=== PATIENT | female | born 1985 | race Caucasian/White ===

== ENCOUNTER 2020-09-13 23:16 | Emergency (ER) | payer OTHER, SELFPAY ==
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
[2020-09-13 23:49] VITALS: BP 111/84; PULSE 77; RESP 12; TEMP 37.2; O2SAT 100
[2020-09-14] MEDS: CYCLOBENZAPRINE HCL 10 MG TABLET PO
[2020-09-14] MEDS: KETOROLAC (*BKC) 60 MG/2 ML VIAL IM
--- NOTE | 2020-09-14 00:02 | PC.NURSE ---
Pt returned from radiology.
--- NOTE | 2020-09-14 00:31 | PC.NURSE ---
Pt states pain has improved and is now rated 7/10 at this time. Pt remains alert and oriented x4 and in no obvious distress with stable vitals. EDMD to bedside to updated pt on poc and all questions and concerns addressed.
[2020-09-14 00:32] VITALS: BP 100/71; PULSE 72; RESP 13; TEMP 37.2; O2SAT 98
[2020-09-14 00:36] VITALS: BP 100/71; PULSE 72; RESP 13; TEMP 37.2; O2SAT 98
== END 2020-09-14 00:38 | disposition home or self-care (01) ==
PROVIDERS: Emergency Provider Emergency Medicine
DX: S29.012A Strain of muscle and tendon of back wall of thorax, initial encounter (principal); V89.2XXA Person injured in unspecified motor-vehicle accident, traffic, initial encounter
CPT/HCPCS: 72072; 96372; 99283; A9270; J1885

== ENCOUNTER 2020-11-05 17:03 | Emergency (ER) | payer OTHER, SELFPAY ==
[2020-11-05 17:11] VITALS: BP 100/60; PULSE 79; RESP 18; TEMP 36.6; O2SAT 100
--- NOTE | 2020-11-05 18:07 | ED.SKABFB ---
HPI - Skin/Abscess/Foreign Bdy General Chief complaint: Skin/Abscess/Foreign Body Stated complaint: elbow pain Source: patient and RN notes reviewed Mode of arrival: ambulatory History of Present Illness HPI narrative: 35-year-old female presented to urgent care with complaints of right elbow pain and swelling with discharge. According to patient approximately 2 to 3 days ago while sitting on her couch she injured her elbow. She noted that she noticed the her right elbow has swollen in was tender to touch, she did not do anything at home for her wound. Patient did not even clean the site. She also notes that she had body aches with chills she also admits that she recently took her second Covid shot which could also be the cause of her body aches and chills. The patient denies SOB, CP, palpitation, extremity numbness, lightheadedness, dizziness, constipation, diarrhea, chills, or fever. She has full range of motion so that affected elbow Related Data Home Medications Medication Instructions Recorded Confirmed guanfacine mg 11/05/20 hydroxyzine HCl 11/05/20 quetiapine 11/05/20 sertraline mg 11/05/20 trazodone 11/05/20 Allergies Allergy/AdvReac Type Severity Reaction Status Date / Time No Known Allergies Allergy Verified 09/13/20 23:47 Review of Systems Review of Systems: A 14 organ system Review of Systems was performed and pertinent positives included in the HPI, otherwise remaining ROS is negative. [facility] Family History Family History (Updated 11/05/20 @ 18:12 by TEDDY Plasencia-Matty) Other Family history non-contributory Exam Narrative: GENERAL: This is a well-nourished, well-developed patient, in no apparent distress. HEAD: normocephalic, atraumatic. EYES: PERRL. Sclera clear/white. Vision is grossly intact. EARS: External ears normal, auditory canals clear and without drainage, TMs normal without perforation. Hearing grossly intact. NOSE: External nose normal with no obvious nasal discharge, nares without redness, no rhinorrhea. THROAT: Mucous membranes moist, posterior pharynx clear. NECK: Neck supple, non-tender without lymphadenopathy, masses or thyromegaly. CARDIOVASCULAR: Regular rate and rhythm without murmurs, gallops, or rubs. RESPIRATORY: Clear to auscultation. Breath sounds equal bilaterally. No wheezes, rales, or rhonchi. GASTROINTESTINAL: Abdomen soft, non-tender, nondistended. Bowel sounds are active. No hepato-splenomegaly, or palpable masses. No guarding. SKIN: Edema with erythema to the right elbow, small size opening with white discharge, site tender to touch. Patient does have full range of motion NEURO: awake, alert, and oriented to person, place and time. There were no obvious focal neurologic abnormalities. Steady gait EXTREMITIES: Normal range of motion. No edema. No calf tenderness. Negative Homans sign bilaterally. BACK: Nontender without deformity or crepitance. No flank tenderness. Course Course Emergency Course: Patient will be treated for cellulitis with clindamycin instructed to clean site daily and apply Neosporin Vital Signs Vital signs: Vital Signs Temperature 97.9 F 11/05/20 17:11 Pulse Rate 79 11/05/20 17:11 Respiratory Rate 18 11/05/20 17:11 Blood Pressure 100/60 11/05/20 17:11 Pulse Oximetry 100 11/05/20 17:11 Temperature 97.9 F 11/05/20 17:11 Pulse Rate 79 11/05/20 17:11 Respiratory Rate 18 11/05/20 17:11 Blood Pressure 100/60 11/05/20 17:11 Pulse Oximetry 100 11/05/20 17:11 MDM - Skin/Abscess/Foreign Bdy Differential Diagnosis Differential diagnosis: Likely abscess of skin or subcutaneous tissue, cellulitis and contact dermatitis Discharge Plan Discharge Clinical Impression: Cellulitis Qualifiers: Site of cellulitis: extremity Site of cellulitis of extremity: upper extremity Laterality: right Qualified Code(s): L03.113 - Cellulitis of right upper limb Patient Disposition: Home, Self-Care Condition: S
== END 2020-11-05 18:21 | disposition home or self-care (01) ==
PROVIDERS: Emergency Provider Nurse Practitioner
DX: L03.113 Cellulitis of right upper limb (principal)
CPT/HCPCS: 99213; G0463

== ENCOUNTER 2020-11-11 23:59 | Inpatient (IN) | payer OTHER, SELFPAY ==
--- NOTE | ~2020-11-11 | XR_ITS ---
XR abdomen NG/feed tube insert DATE: 11/13/2020 04:15 INDICATION: NG tube placement TECHNIQUE: Portable AP view on 11/13/2020 at 0404 hours COMPARISON: 11/12/2020 portable AP view at 0317 hours FINDINGS: NG tube tip is situated in the lower body of the stomach, the proximal side-port 10 cm dist al to the diaphragmatic hiatus. Increased left retrocardiac density with air bronchograms consistent with left lower lobe atelectasis and/or consolidation. There is lesser infiltrate and/atelectasis in the right lung base. Nonspecific bowel gas pattern. Skin vaibhav overlie the mid to upper central abdomen. IMPRESSION: NG tube tip in lower body of stomach Reviewed, dictated and finalized at Location [facility]. Reviewed, dictated and finalized at location A.
--- NOTE | ~2020-11-11 | XR_ITS ---
XR abdomen NG/feed tube insert DATE: 11/12/2020 02:43 INDICATION: NG tube placement TECHNIQUE: Portable AP view on 11/12/2020 at 0235 hours COMPARISON: None FINDINGS: NG tube in mid to lower body of stomach, proximal side-port 12 cm distal to the diaphragmat ic hiatus. No intraperitoneal free air is evident. Nonspecific bowel gas pattern of the included upper abdomen. IMPRESSION: NG tube in body of stomach Reviewed, dictated and finalized at [facility]. Reviewed, dictated and finalized at location A. IMPRESSION: NG tube in body of stomach
--- NOTE | ~2020-11-11 | XR_ITS ---
XR abdomen NG/feed tube insert DATE: 11/12/2020 03:23 INDICATION: NG tube placement TECHNIQUE: Portable AP view on 11/12/2020 at 0317 hours COMPARISON: None FINDINGS: NG tube is present in the mid to lower aspect of the gastric body. Nonspecific bowel gas pattern. No intraperitoneal free air is evident. IMPRESSION: NG tube in mid to lower aspect of body of stomach Reviewed, dictated and finalized at [facility]. Reviewed, dictated and finalized at location A.
--- NOTE | ~2020-11-11 | CT_ITS ---
EXAMINATION: CT abdomen pelvis w con DATE: 11/12/2020 01:56 INDICATION: Left upper quadrant, lower abdominal pain. Nausea and vomiting. TECHNIQUE: Computed tomography (CT) of the abdomen and pelvis was performed with 100 cc Omnipaque 350 intravenous contrast. Automated exposure control and iterative reconstruction technique were employe d. Exam dose: 447.36 mGy-cm total exam DLP. COMPARISON: None. FINDINGS: Mild dependent left lower lobe atelectasis. Heart size is within normal range. No pericardi al or pleural effusion. There is pneumoperitoneum in the upper abdominal area. There is thickening of the wall of the distal body of the stomach and gastric antrum with evidence of distal gastric perforation, likely due to gas tric ulcer. There is perigastric soft tissue fat infiltration. The gallbladder is present. No bile duct dilatation. The liver, spleen, pancreas, adrenal glands and kidneys are unremarkable. No abdominal aortic aneurysm. No intraperitoneal or retroperitoneal or pelv ic mass lesion or adenopathy. Normal appendix. No bowel obstruction. The uterus, adnexal areas and urinary bladder are unremarkable. There is mild free fluid adjacent to the spleen and in the lumbar left paracolic gutter and pelvis. IMPRESSION: Thickening of the wall of the distal body and antrum of the stomach with evidence of per forated gastric ulcer, associated pneumoperitoneum and mild free fluid in the abdomen and pelvis Reviewed, dictated and finalized at [facility]. Reviewed, dictated and finalized at location A. IMPRESSION: Thickening of the wall of the distal body and antrum of the stomac h with evidence of perforated gastric ulcer, associated pneumoperitoneum and mi ld free fluid in the abdomen and pelvis
[2020-11-12] VITALS (22 sets, daily range): BP systolic 91–136; BP diastolic 53–86; PULSE 73–96; RESP 10–24; TEMP 36.7–37.7; O2SAT 95–100; BMI 22.6
--- NOTE | 2020-11-12 00:15 | PC.NURSE ---
Pt uncooperative with questions asked by this RN at this time. Pt responds with Oh my God! I just need something for pain.
[2020-11-12 00:46] LABS: Basophils Absolute Auto 0.1 K/mm3 (0.0-0.1); Basophils Percent Auto 0.3 % (0.2-1.2); Eosinophils Absolute Auto 0.2 K/mm3 (0-0.3); Eosinophils Percent Auto 0.8 % (0-4.4); Hematocrit 34.2 % (37.0-47.0); Hemoglobin 10.9 g/dL (12.0-15.0); Immature Granulocyte Absolute 0.11 K/mm3 (0.00-0.031); Immature Granulocyte Percent A 0.5 % (0-0.5); Lymphocytes Absolute Auto 1.83 K/mm3 (0.9-3.2); Lymphocytes Percent Auto 8.8 % (18.3-44.2); Mean Corpuscular HGB Conc 31.9 g/dl (32-36); Mean Corpuscular Hemoglobin 26.3 pg (26-34); Mean Corpuscular Volume 82.4 fl (80-100); Mean Platelet Volume 9.4 fl (7.4-10.4); Monocytes Absolute Auto 0.6 K/mm3 (0.1-0.6); Monocytes Percent Auto 2.7 % (2.6-8.5); Neutrophils Absolute Auto 18.2 K/mm3 (1.3-6.7); Neutrophils Percent Auto 86.9 % (45.5-73.1); Platelet Count Result 549 k/mm3 (150-375); Red Blood Count 4.15 M/mm3 (4.2-5.4); Red Cell Distribution Width 14.9 % (11.5-14.5); White Blood Count 20.9 K/mm3 (4.5-10.0)
--- NOTE | 2020-11-12 00:54 | ED.ABDPAIN ---
HPI - Abdominal Pain General Chief Complaint: Abdominal Pain Stated Complaint: abd pain Time Seen by Provider: 11/12/20 00:11 Source: patient Mode of arrival: EMS Limitations: no limitations History of Present Illness HPI narrative: This is a 35 female who presents for evaluation of left upper abdominal pain that started suddenly 1 hour prior to arrival. Her pain has been constant and severe. pc technician states patient had worsening pain with laying down. She has nausea and vomiting, but she denies diarrhea. She reports having normal bowel movement in the morning. She denies similar pain in the past. Related Data Home Medications Medication Instructions Recorded Confirmed guanfacine 2 mg PO PRN PRN 11/05/20 11/12/20 sertraline 150 mg PO DAILY 11/05/20 11/12/20 trazodone 100 mg PO DAILY 11/05/20 11/12/20 hydroxyzine HCl 50 mg PO TID PRN 11/12/20 11/12/20 metoprolol tartrate 50 mg PO BID 11/12/20 11/12/20 Allergies Allergy/AdvReac Type Severity Reaction Status Date / Time No Known Allergies Allergy Verified 09/13/20 23:47 Review of Systems Review of Systems: All systems reviewed & are unremarkable except as noted in HPI and below Constitutional: Constitutional: Denies chills and Denies fever(s) Cardiovascular: Cardiovascular: Denies chest pain Respiratory: Respiratory: Denies cough and Reports dyspnea Gastrointestinal: Gastrointestinal: Reports abdominal pain, Reports nausea and Reports vomiting Genitourinary: Genitourinary: Denies hematuria, Denies dysuria and Denies flank pain Musculoskeletal: Musculoskeletal: Denies back pain PMF Past Medical History Medical History Patient denies medical problems Surgical History Surgical History H/O section Family History Family History Other Family history non-contributory Social History Social History Smoking packs per day: 1.5 Smoking cigarettes per day: 30.0 Years smoked: 20 Smoking pack-years: 30.00 Smoking status: Current every day smoker Tobacco type: cigarettes Alcohol intake: current Drinks per week: 7 Substance use: current Substance use type: does not use Spiritual care concerns: No Exam Const: General: alert Orientation/consciousness: patient oriented x3 Other: writhing in pain Eyes: EOM: EOMs intact bilaterally Resp: Effort & Inspection: normal respiratory effort and no retractions Auscultation: clear to auscultation bilaterally Cardio: Rate: regular rate Rhythm: regular rhythm Heart sounds: no murmurs GI: Inspection: distended GI Palp: Yes Soft to palpation, Yes Tenderness to palpation present (GI) (diffuse), Yes Guarding due to palpation present (GI) and Yes Rigid due to palpation Auscultation: normal bowel sounds Back/Spine/Pelvis: Back: no CVA tenderness Skin: General skin exam: normal color Rashes: no rashes Neuro: General: patient oriented x3, moves all extremities and CN's II-XI intact bilaterally Psych: Mental Status: mental status grossly normal Affect: normal affect Course Reevaluation(s) Reevaluation #1: I Discussed with patient that she was found to have perforated stomach. She is having NGT placed, and I discussed that she will need to have surgery. Date: 11/12/20 Time: 02:30 Consultations Consultation #1: I spoke with Dr. Mathew (Surgeon). I discussed CT showing perforated viscous with patient is pain. He states to admit patient with antibiotics, fluids and pain medication and he will see her this morning. Date: 11/12/20 Time: 03:00 Vital Signs Vital signs: Vital Signs Temperature 98.1 F 11/12/20 00:04 Pulse Rate 85 11/12/20 00:04 Respiratory Rate 16 11/12/20 00:04 Blood Pressure 135/84 11/12/20 00:04 Pulse Oximetry 100 11/12/20
[2020-11-12 00:55] LABS: Alanine Aminotransferase 10 U/L (4-35); Albumin Level 3.9 g/dL (3.5-5.1); Alkaline Phosphatase 98 U/L (38-126); Anion Gap 12 mmol/L (8-16); Aspartate Amino Transferase 24 U/L (14-36); Bilirubin,Total 0.2 mg/dL (0.2-1.3); Blood Urea Nitrogen 12 mg/dL (7-17); Calcium 9.7 mg/dL (8.4-10.2); Carbon Dioxide 22 mmol/L (22-30); Chloride 98 mmol/L (98-107); Estimated Glomerular Filt Rate > 60; Glucose 131 mg/dL (65-110); Lipase 92 U/L (23-300); Potassium 3.3 mmol/L (3.4-5.0); Sodium 132 mmol/L (137-145)
[2020-11-12 01:07] LABS: Add Urine Microscopic? YES; Amorphous Sediment Urine Few; Appearance Urine Cloudy (Clear); Bilirubin Urine Negative (Negative); Blood Urine Negative (Negative); Color Urine Yellow (Yellow); Glucose Urine UA Negative (Negative); Ketones Urine Negative (Negative); Leukocyte Esterase Ur Negative LEU/UL (Negative); Nitrate Urine Negative (Negative); Protein Urine Negative (Negative); RBC Urine 0-2 /hpf (0-2); Specific Grav Ur 1.017 (1.001-1.035); Squamous Epithelial Cell Urine Rare /hpf (Few); Urobilinogen Urine Negative mg/dL (<2.0)
[2020-11-12] MEDS: SODIUM CHLORIDE 0.9% IV 1,000 ML 999 ML IV CONT ×3 (01:18→17:25)
[2020-11-12] MEDS: ONDANSETRON INJ 4 MG/2 ML VIAL IV PUSH (01:19)
[2020-11-12] MEDS: HYDROmorphone HCL INJ (*CRX) 1 MG/ML SYR IV PUSH ×3 (01:21→06:28)
--- NOTE | 2020-11-12 01:35 | PC.NURSE ---
Pt to CT scan at this time.
--- NOTE | 2020-11-12 03:06 | PC.NURSE ---
NG tube pulled back to depth of 60.
[2020-11-12] MEDS: SODIUM CHLORIDE 0.9% IV 1,000 ML 125 ML IV CONT (05:20)
--- NOTE | 2020-11-12 06:32 | PM.IMHP ---
H&P: HPI History of Present Illness Date/Time: 11/12/20 06:32 Chief Complaint: Severe abdominal pain Narrative: patient is a 35-year-old woman who yesterday afternoon noted the onset of left upper quadrant abdominal pain. It was extremely severe and she came to the emergency room via EMS services around midnight. She also experienced nausea and vomiting. The pain was constant and severe. In the emergency room she was noticed to have diffuse abdominal tenderness worse in the upper abdomen. Imaging shows pneumoperitoneum with suggestion of gastric perforation distally. A nasogastric tube is been placed. She has been started on antibiotics and received some IV fluids. She is admitted now for perforated viscus probably distal stomach. Review of Systems Review of Systems: All systems reviewed & are unremarkable except as noted in HPI and below Constitutional: Constitutional: Reports as per HPI, Reports anorexia, Denies chills, Denies fever(s), Denies headache(s) and Reports poor appetite Cardiovascular: Cardiovascular: Denies chest pain and Denies dyspnea Respiratory: Respiratory: Denies cough and Denies dyspnea Gastrointestinal: Gastrointestinal: Reports as per HPI, Reports abdominal pain, Reports nausea and Reports vomiting Neurologic: Denies confusion and Denies headache(s) PMFSH Past Medical History Medical History Patient denies medical problems Surgical History Surgical History H/O section Family History Family History Other Family history non-contributory Social History Social History Smoking packs per day: 1.5 Smoking cigarettes per day: 30.0 Years smoked: 20 Smoking pack-years: 30.00 Smoking status: Current every day smoker Tobacco type: cigarettes Alcohol intake: current Drinks per week: 7 Substance use: current Substance use type: does not use Spiritual care concerns: No Meds Home Medications and Allergies Home Medications Medication Instructions Recorded Confirmed Type cyclobenzaprine 10 mg PO TID PRN #21 tablet 09/14/20 11/12/20 Rx ibuprofen 800 mg PO TID PRN #30 tablet 09/14/20 11/12/20 Rx guanfacine 2 mg PO PRN PRN 11/05/20 11/12/20 History sertraline 150 mg PO DAILY 11/05/20 11/12/20 History trazodone 100 mg PO DAILY 11/05/20 11/12/20 History hydroxyzine HCl 50 mg PO TID PRN 11/12/20 11/12/20 History metoprolol tartrate 50 mg PO BID 11/12/20 11/12/20 History Allergies Allergy/AdvReac Type Severity Reaction Status Date / Time No Known Allergies Allergy Verified 11/12/20 09:41 Vital Signs Vital Signs - 24 hr 11/12/20 00:04 11/12/20 01:15 11/12/20 01:16 Temperature 36.7 C Pulse Rate 85 79 81 Respiratory Rate 16 24 H 22 H Blood Pressure 135/84 131/83 135/86 Pulse Oximetry 100 100 99 11/12/20 02:17 11/12/20 03:33 11/12/20 04:59 Temperature 36.7 C Pulse Rate 75 77 73 Respiratory Rate 18 19 16 Blood Pressure 136/85 123/82 129/77 Pulse Oximetry 95 98 97 Exam Const: General: cooperative, no acute distress, well developed, alert, awake, ill appearing, tired appearing and uncomfortable; No confusion Nutritional Appearance: thin Orientation/consciousness: patient oriented x3 and No confusion HENMT: Head: normocephalic, atraumatic, no contusions and no scalp lesions Ears: external ears normal General nose exam: Normal external nose present Face and sinus: face symmetric and dry mucous membranes Mouth: Yes Normal oral and palatal mucosa present and Yes tongue normal Throat: posterior oropharynx normal Eyes: Conjunctivae: conjunctivae normal Sclera: sclerae normal Pupils: Equal, round and reactive pupils present EOM: EOMs intact bilaterally Neck: Neck: normal visual inspection, no lymphadenopathy, tr
--- NOTE | 2020-11-12 09:11 | WPDANESEPPF ---
Anes - Initial Pre Proc Eval Procedure: Operation Date: 11/12/20 10:00 Proposed Procedures p Exploratory Laparotomy for Perforated Viscous - Richmond Mathew MD Date/Time: 11/12/20 09:11 Surgeon: Richmond Mathew MD Pre Op Diagnosis: Perforated Viscous-stomach Patient Data Age: 35 Gender: F Height: 1.75 m Weight: 69.6 kg Last Vital Signs Temp 36.7 C 11/12/20 04:59 Pulse 73 11/12/20 04:59 Resp 16 11/12/20 04:59 BP 129/77 11/12/20 04:59 Pulse Ox 97 11/12/20 04:59 Allergies Allergy/AdvReac Type Severity Reaction Status Date / Time No Known Allergies Allergy Verified 09/13/20 23:47 Home Medications Medication Instructions Recorded Confirmed Type cyclobenzaprine 10 mg PO TID PRN #21 tablet 09/14/20 11/12/20 Rx ibuprofen 800 mg PO TID PRN #30 tablet 09/14/20 11/12/20 Rx guanfacine 2 mg PO PRN PRN 11/05/20 11/12/20 History sertraline 150 mg PO DAILY 11/05/20 11/12/20 History trazodone 100 mg PO DAILY 11/05/20 11/12/20 History hydroxyzine HCl 50 mg PO TID PRN 11/12/20 11/12/20 History metoprolol tartrate 50 mg PO BID 11/12/20 11/12/20 History Laboratory Tests 11/12/20 11/12/20 11/12/20 00:40 00:40 00:55 WBC 20.9 K/mm3 H K/mm3 (4.5-10.0) RBC 4.15 M/mm3 L M/mm3 (4.2-5.4) Hgb 10.9 g/dL L g/dL (12.0-15.0) Hct 34.2 % L % (37.0-47.0) MCV 82.4 fl fl (80-100) MCH 26.3 pg pg (26-34) MCHC 31.9 g/dl L g/dl (32-36) RDW 14.9 % H % (11.5-14.5) Plt Count 549 k/mm3 H k/mm3 (150-375) MPV 9.4 fl fl (7.4-10.4) Immature Gran % (Auto) 0.5 % % (0-0.5) Neut % (Auto) 86.9 % H % (45.5-73.1) Lymph % (Auto) 8.8 % L % (18.3-44.2) [place] % (Auto) 2.7 % % (2.6-8.5) Eos % (Auto) 0.8 % % (0-4.4) Baso % (Auto) 0.3 % % (0.2-1.2) Lymph # (Auto) 1.83 K/mm3 K/mm3 (0.9-3.2) Andrews # (Auto) 0.6 K/mm3 K/mm3 (0.1-0.6) Eos # (Auto) 0.2 K/mm3 K/mm3 (0-0.3) Baso # (Auto) 0.1 K/mm3 K/mm3 (0.0-0.1) Abs Immat Gran (auto) 0.11 K/mm3 H K/mm3 (0.00-0.031) Absolute Neuts (auto) 18.2 K/mm3 H K/mm3 (1.3-6.7) Absolute Nucleated RBC 0.0 K/mm3 K/mm3 (0.0-0.012) Nucleated RBC % 0.0 % % (0.0-0.2) Sodium 132 mmol/L L mmol/L (137-145) Potassium 3.3 mmol/L L mmol/L (3.4-5.0) Chloride 98 mmol/L mmol/L (98-107) Carbon Dioxide 22 mmol/L mmol/L (22-30) Anion Gap 12 mmol/L mmol/L (8-16) BUN 12 mg/dL mg/dL (7-17) Creatinine 1.00 mg/dL mg/dL (0.7-1.0) Estim Creat Clear Calc Not Reportable Estimated GFR > 60 (59 - ) Glucose 131 mg/dL H mg/dL (65-110) Calcium 9.7 mg/dL mg/dL (8.4-10.2) Total Bilirubin 0.2 mg/dL mg/dL (0.2-1.3) AST 24 U/L U/L (14-36) ALT 10 U/L U/L (4-35) Alkaline Phosphatase 98 U/L U/L (38-126) Total Protein 7.0 g/dL g/dL (6.3-8.2) Albumin 3.9 g/dL g/dL (3.5-5.1) Lipase 92 U/L U/L (23-300) Urine Color Yellow (Yellow) Urine Appearance Cloudy H (Clear) Urine pH 7.0 (5.0-9.0) Ur Specific [place] 1.017 (1.001-1.035) Urine Protein Negative mg/dL mg/dL (Negative) Urine Glucose (UA) Negative mg/dL mg/dL (Negative) Urine Ketones Negative mg/dL mg/dL (Negative) Ur Blood (Man) Negative (Negative) Urine Nitrate Negative (Negative) Urine Bilirubin Negative (Negative) Urine Urobilinogen Negative mg/dL mg/dL (<2.0) Leukocyte Esterase Rfl Negative FORD/UL FORD/UL (Negative) Urine RBC 0-2 /hpf /hpf (0-2) Ur Squamous Epith Cells Rare /hpf /hpf (Few) Amorphous Sediment Few H (None)
[2020-11-12] MEDS: LACTATED RINGERS 1,000 ML 30 ML IV CONT ×3 (09:30→13:20)
--- NOTE | 2020-11-12 09:57 | WPDHPUPDATE1 ---
History and Physical Update Update Date/Time: 11/12/20 09:57 History and Physical has been reviewed, including an updated exam of the patient. There are NO changes in the patient's condition. Risks, benefits, and alternatives have been discussed and questions answered. Patient agrees to proceed with procedure.
[2020-11-12] MEDS: ceFAZolin SODIUM 1 GM VIAL 2 GM IV PUSH (10:31)
--- NOTE | 2020-11-12 11:58 | P.OP_ITS ---
Procedure Note - Detailed Date of Procedure 11/12/20 Pre-op Diagnosis Perforated Viscous-stomach Post-op Diagnosis other (Perforated duodenal ulcer) Procedure Performed Closure of perforated duodenal ulcer with omentoplasty Surgeon Richmond Mathew MD [employer] Nuris Montilla [facility] Anesthesia general Indications Patient presented to the emergency room with severe abdominal pain and tenderness primarily in the upper abdomen. She had an elevated white count. CT scan showed pneumoperitoneum with signs of distal gastric perforation. She received IV antibiotics, IV fluids, analgesics. She is taken to surgery now for laparotomy and closure of perforated viscus. Findings She had a perforated duodenal ulcer just past the pylorus. Description of Procedure Patient was taken to surgery and induced into general anesthesia. The entire abdomen was prepped and draped. An upper midline incision was made and dissection was carried down through the subcutaneous. We entered the fascia at the midline and extended this the length of the wound. The properitoneal fat and peritoneum were quite edematous. The peritoneum was opened and extended the length of the wound. There was a lot of gastric content with some fibrin is debris in the abdomen. This was suctioned away. We then placed the [place] wound guard into the wound for better exposure. We were able to find the perforated ulcer. Fortunately it was anterior and just past the pylorus in the duodenum. After suctioning away most of the ascites, we exposed the area of the ulcer. Using interrupted 4-0 silk suture, the ulcer was closed. We then thoroughly irrigated the entire abdomen with 2 L of warm saline. This was largely clear by the end. The area of the ulcer closure was then re-exposed. Using 4-0 silk suture, a vascular pedicle of omentum was dissected from the main body of the omentum and then sutured to the bowel all around the closure. We checked the position of the NG tube and it was fine in the stomach. We placed the abdominal contents back in their anatomic position. The fascia was closed with bidirectional running 1. PDS suture. The subcutaneous was approximated with interrupted 3 0 Vicryl suture. The skin was closed with wide vaibhav. Xeroform gauze fluffs and Medipore tape were used to dress the wound. Patient was awakened and taken to recovery in good condition. Sponge needle counts were correct x2. Estimated Blood Loss 30 Urine Output -200.0 Drains Yes (NG tube, Poon catheter) Packing No Pathology none sent Complications None Condition stable Disposition PACU
[2020-11-12] MEDS: HYDROmorphone HCL INJ (*CRX) 1 MG/ML SYR 0.5 MG IV PUSH ×2 (12:37→12:42)
--- NOTE | 2020-11-12 13:05 | SUR.PHASEI ---
informed Dr. Nelson of patient's temperature of 99.9. New orders for IV Tylenol
--- NOTE | 2020-11-12 14:36 | PM.IMCN ---
Assessment and Plan Assessment and plan (1) Hypotension after procedure: Code(s): I95.81 - Postprocedural hypotension Status: Acute Assessment and Plan: The patient has hypotension and tachycardia with marked leukocytosis in the setting of perforated duodenal ulcer status post surgical repair. Will hold the patient's home antihypertensive medications. Will give an additional 1 L normal saline bolus. Will monitor input and output closely. Will check lactic acid and blood cultures as the patient has borderline elevated temperature and marked leukocytosis. (2) Perforated duodenal ulcer: Code(s): K26.5 - Chronic or unspecified duodenal ulcer with perforation Status: Acute Assessment and Plan: Postoperative management per Surgical Service. NG in place. NPO status. (3) Metabolic encephalopathy: Code(s): G93.41 - Metabolic encephalopathy Status: Acute Assessment and Plan: Likely due to postoperative state. Will monitor mental status closely and try to minimize mood altering/memory altering medications. HPI Data of Consult Consult date: 11/13/20 Requesting Physician: Richmond Mathew MD Primary Care Provider: PHYSICIAN NOT ON STAFF Consult Narrative Narrative: Ree Davis is a 35 year old female with a past medical history of depression, essential hypertension could, DVT, and prior who presented to the ER last night due to abdominal pain. She was found to have perforated viscus with pneumoperitoneum. The patient presented to the ER after approximately 30 minutes of acute onset the left upper quadrant abdominal pain. She had associated nausea vomiting but denied any hematemesis or coffee-ground emesis. The pain was constant and severe with no relieving factors. The pain was worse with palpation of the abdomen and with position changes. An NG tube was placed the patient was placed on empiric antibiotic therapy. The patient's last bowel movement was on the morning of the . He has never had any symptoms similar to this in the past. The patient underwent open exploratory laparotomy with closure of duodenal ulcer with omentoplasty. The patient did admit that she takes a fair amount of naproxen and Tylenol at home. She denies any known history of ulcers in the past. Review of Systems Review of Systems: Roof systems was difficult as the patient was encephalopathic. She reported abdominal pain with palpation of the abdomen. She has a Poon catheter in place and was reporting some dysuria. She denies any current nausea or vomiting. She was unable to tell me the duration of her symptoms. She does admit to taking a fair amount of naproxen and Tylenol at home. [facility] Past Medical History Medical History (Updated 11/13/20 @ 01:44 by Sabi Webb DO) Anxiety Asthma Bowel obstruction Depression DVT (deep venous thrombosis) Eczema Essential hypertension Perforated duodenal ulcer Post traumatic stress disorder (PTSD) Surgical History Surgical History H/O section Family History Family History Other Family history non-contributory Social History Social History Smoking packs per day: 1.5 Smoking cigarettes per day: 30.0 Years smoked: 20 Smoking pack-years: 30.00 Smoking status: Current every day smoker Tobacco type: cigarettes Alcohol intake: current Drinks per week: 7 Substance use: current Substance use type: does not use Spiritual care concerns: No Meds Home Medications and Allergies Home Medications Medication Instructions Recorded Confirmed Type cyclobenzaprine 10 mg PO TID PRN #21 tablet 09/14/20 11/12/20 Rx ibuprofen 800 mg PO TID PRN #30 tablet 09/14/20 11/12/20 Rx guanfacine 2 mg PO PRN PRN 11/05/20 11/12/20 History
[2020-11-12] MEDS: LACTATED RINGERS 1,000 ML 999 ML IV CONT (14:49)
[2020-11-12 15:40] LABS: Basophils Percent Auto 0.2 % (0.2-1.2); Eosinophils Percent Auto 0.2 % (0-4.4); Hemoglobin 9.4 g/dL (12.0-15.0); Immature Granulocyte Absolute 0.07 K/mm3 (0.00-0.031); Immature Granulocyte Percent A 0.4 % (0-0.5); Lymphocytes Absolute Auto 1.01 K/mm3 (0.9-3.2); Lymphocytes Percent Auto 5.4 % (18.3-44.2); Mean Corpuscular HGB Conc 31.3 g/dl (32-36); Mean Corpuscular Hemoglobin 26.8 pg (26-34); Mean Corpuscular Volume 85.5 fl (80-100); Mean Platelet Volume 9.7 fl (7.4-10.4); Monocytes Absolute Auto 0.7 K/mm3 (0.1-0.6); Monocytes Percent Auto 3.8 % (2.6-8.5); Platelet Count Result 324 k/mm3 (150-375); Red Blood Count 3.51 M/mm3 (4.2-5.4); Red Cell Distribution Width 15.5 % (11.5-14.5); White Blood Count 18.9 K/mm3 (4.5-10.0)
[2020-11-12 15:50] LABS: Lactic Acid Reflex 1.1 mmol/L (0.7-2.1)
[2020-11-12 15:51] LABS: Alanine Aminotransferase 9 U/L (4-35); Albumin Level 2.5 g/dL (3.5-5.1); Alkaline Phosphatase 65 U/L (38-126); Anion Gap 7 mmol/L (8-16); Aspartate Amino Transferase 17 U/L (14-36); Bilirubin,Total 0.3 mg/dL (0.2-1.3); Blood Urea Nitrogen 11 mg/dL (7-17); Calcium 8.2 mg/dL (8.4-10.2); Carbon Dioxide 24 mmol/L (22-30); Chloride 105 mmol/L (98-107); Estimated CRCL calculation 89 ml/min; Estimated Glomerular Filt Rate > 60; Glucose 103 mg/dL (65-110); Potassium 4.2 mmol/L (3.4-5.0); Sodium 136 mmol/L (137-145)
[2020-11-12] MEDS: MORPHINE SULFATE PCA (*CRX) 30 MG/30 ML SYR IV CONT (16:01)
[2020-11-12] MEDS: LACTATED RINGERS 1,000 ML 125 ML IV CONT (16:06)
[2020-11-12] MEDS: MORPHINE SULFATE (*CRX) 4 MG/ML INJ IV PUSH ×3 (17:38→22:46)
[2020-11-12] MEDS: PANTOPRAZOLE SODIUM IV 40 MG VIAL IV PUSH (20:00)
[2020-11-12] MEDS: IBUPROFEN IV 800 MG/200 ML 800 MG/200 ML BAG 400 MG IVPB (23:45)
[2020-11-13] VITALS (7 sets, daily range): BP systolic 119–141; BP diastolic 70–89; PULSE 92–116; RESP 14–18; TEMP 36.3–37; O2SAT 90–97
[2020-11-13] MEDS: MORPHINE SULFATE (*CRX) 4 MG/ML INJ IV PUSH ×4 (00:34→21:53)
[2020-11-13] MEDS: LACTATED RINGERS 1,000 ML 125 ML IV CONT (01:59)
[2020-11-13 05:54] LABS: Hematocrit 30.5 % (37.0-47.0); Hemoglobin 9.4 g/dL (12.0-15.0); Mean Corpuscular HGB Conc 30.8 g/dl (32-36); Mean Corpuscular Hemoglobin 26.3 pg (26-34); Mean Corpuscular Volume 85.2 fl (80-100); Mean Platelet Volume 10.1 fl (7.4-10.4); Platelet Count Result 301 k/mm3 (150-375); Red Blood Count 3.58 M/mm3 (4.2-5.4); Red Cell Distribution Width 15.4 % (11.5-14.5); White Blood Count 15.8 K/mm3 (4.5-10.0)
[2020-11-13 06:02] LABS: Anion Gap 4 mmol/L (8-16); Blood Urea Nitrogen 10 mg/dL (7-17); Calcium 7.8 mg/dL (8.4-10.2); Carbon Dioxide 26 mmol/L (22-30); Chloride 106 mmol/L (98-107); Estimated CRCL calculation 89 ml/min; Estimated Glomerular Filt Rate > 60; Glucose 89 mg/dL (65-110); Potassium 3.5 mmol/L (3.4-5.0); Sodium 136 mmol/L (137-145)
[2020-11-13] MEDS: IBUPROFEN IV 800 MG/200 ML 800 MG/200 ML BAG 400 MG IVPB ×2 (06:03→13:31)
[2020-11-13] MEDS: ENOXAPARIN 40 MG/0.4 ML SYRINGE SUB-Q (07:59)
[2020-11-13] MEDS: PANTOPRAZOLE SODIUM IV 40 MG VIAL IV PUSH ×2 (07:59→19:35)
[2020-11-13] MEDS: SERTRALINE HCL 50 MG TABLET 150 MG PO (07:59)
[2020-11-13] MEDS: traZODone HCL 50 MG TABLET 100 MG PO (07:59)
--- NOTE | 2020-11-13 09:37 | PM.PNGS ---
Progress Note: A&P Assessment and Plan (1) Perforated duodenal ulcer: Code(s): K26.5 - Chronic or unspecified duodenal ulcer with perforation Status: Acute Assessment and Plan: NG tube replace last night but now in good position. Continue NPO, NG suction, IV fluids. Will get patient out of bed today and DC Poon catheter. Continue p.r.n. analgesics. Follow daily labs and exam. (2) Peritonitis (acute) generalized: Code(s): K65.0 - Generalized (acute) peritonitis Status: Acute Assessment and Plan: Continue Zosyn (3) Smoker: Code(s): F17.200 - Nicotine dependence, unspecified, uncomplicated Status: Chronic Assessment and Plan: Consider nicotine patch Subjective Subjective Date/Time Seen: 11/13/20 09:37 Post Op day: 1 Patient reports: still having pain, no flatus, no bowel movement and afebrile Review of Systems Review of Systems: All systems reviewed & are unremarkable except as noted in HPI and below Constitutional: Constitutional: Denies body ache(s), Denies chills, Denies fever(s) and Denies headache(s) Cardiovascular: Cardiovascular: Denies chest pain and Denies dyspnea Respiratory: Respiratory: Denies cough and Denies dyspnea Gastrointestinal: Gastrointestinal: Reports as per HPI, Reports abdominal pain, Denies heartburn, Denies nausea and Denies vomiting Neurologic: Denies confusion and Denies headache(s) Exam Const: General: no acute distress, awake, tired appearing and uncomfortable; No confusion Nutritional Appearance: average body habitus Orientation/consciousness: patient oriented x3 and No confusion GI: Inspection: non-distended and incision (Dressing dry and intact) GI Palp: Yes Soft to palpation, Yes Tenderness to palpation present (GI), No Guarding due to palpation present (GI) and No Rebound tenderness present Auscultation: absent bowel sounds Extrem: General: no calf tenderness and no edema Objective Data Vital Signs Vital Signs: Vital Signs - 24 hr 11/12/20 11:38 11/12/20 11:50 11/12/20 12:05 Temperature 36.8 C Pulse Rate 96 93 95 Respiratory Rate 13 14 15 Blood Pressure 116/70 116/72 115/69 Pulse Oximetry 97 98 96 11/12/20 12:20 11/12/20 12:35 11/12/20 12:50 Temperature 37.6 C Pulse Rate 95 88 84 Respiratory Rate 15 18 12 Blood Pressure 108/65 109/64 98/63 L Pulse Oximetry 99 97 97 11/12/20 13:05 11/12/20 13:20 11/12/20 13:35 Temperature 37.7 C H 37.4 C Pulse Rate 84 87 83 Respiratory Rate 14 13 10 L Blood Pressure 97/59 L 99/61 L 97/57 L Pulse Oximetry 98 99 98 11/12/20 13:48 11/12/20 14:00 11/12/20 16:01 Temperature 37.4 C 36.8 C Pulse Rate 81 86 Respiratory Rate 14 12 14 Blood Pressure 98/58 L 97/53 L Pulse Oximetry 99 99 96 11/12/20 16:39 11/12/20 17:48 11/12/20 18:50 Temperature Pulse Rate 75 88 Respiratory Rate 13 Blood Pressure 91/57 L 97/67 L 106/65 Pulse Oximetry 95 98 11/12/20 21:39 11/13/20 00:45 11/13/20 06:00 Temperature 36.8 C 37.0 C 36.3 C L Pulse Rate 89 105 H 92 Respiratory Rate 16 16 16 Blood Pressure 106/68 119/70 138/84 Pulse Oximetry 98 92 95 Intake/Output Intake/Output: Intake & Output 11/10/20 11/11/20 11/12/20 11/13/20 23:59 23:59 23:59 23:59 Intake Total 6450 500 Output Total 720 950 Balance 5730 -450 Meds/Results Medications: Active Medications Generic Name Dose Route Start Last Admin Trade Name Nick PRN Reason Stop Dose Admin Enoxaparin Sodium 40 mg 11/13/20 09:00 11/13/20 07:59 Enoxaparin 40 Mg/0.4 Ml Syringe SUB-Q 40 mg DAILY KIRAN Administration Lactated Ringer's 1,000 mls @ 100 mls/hr 11/12/20 14:06 11/13/20 01:59 Lr - Lactated Ringers Iv IV CONT 125 mls/hr .Q10H KIRAN Administration Piperacillin/Tazobactam/Dextrose 3.375 gm in 50 mls @ 100 mls/hr 11/12/20 18:00 11/13/20 06:33 Zosyn 3.375 Gm/D5w 50ml Pm IVPB Infused Q6HR KIRAN Infusion Ibuprofen 800 mg in 200 mls @ 400 mls/hr 11/12
[2020-11-13] MEDS: LACTATED RINGERS 1,000 ML 100 ML IV CONT ×2 (10:43→21:48)
--- NOTE | 2020-11-13 10:53 | PM.IMPN ---
Progress Note: A&P Assessment and Plan (1) Hypotension after procedure: Code(s): I95.81 - Postprocedural hypotension Status: Acute Assessment and Plan: Hypotension and tachycardia post ulcer repair Seems to be resolved at this time BP 141/88 Strict I/O to continue Lactic acid 1.1, WBC 15.8, Blood cultures pending (11/13/20) Q4hr vital signs (2) Perforated duodenal ulcer: Code(s): K26.5 - Chronic or unspecified duodenal ulcer with perforation Status: Acute Assessment and Plan: POD 1 Postoperative management per Surgical Service. NG in place. NPO status. IV fluids LR 100ml/hr Antibiotics zosyn 3.375 Q6hr (3) Metabolic encephalopathy: Code(s): G93.41 - Metabolic encephalopathy Status: Acute Assessment and Plan: Likely due to postoperative state. monitor mental status closely Minimize mood altering/memory altering medications. (4) Depression: Code(s): F32.9 - Major depressive disorder, single episode, unspecified Status: Acute Assessment and Plan: restart patient's Zoloft 150 mg p.o. daily continue patient's trazodone 100 mg p.o. daily (5) Essential hypertension: Code(s): I10 - Essential (primary) hypertension Status: Acute Assessment and Plan: current blood pressure 141/88 continue metoprolol 50 mg p.o. b.i.d. trend blood pressure adjust medications as needed Subjective Date/time seen: 11/13/20 08:15 Interval history: Ree Davis is a 35 year old female with a past medical history of depression, essential hypertension, DVT, and prior who presented to the ER for abdominal pain. Upon examination today patient was very lethargic and kept falling asleep. She did say that she had pain in her abdomen, that she rated a 7/10. She also stated that she was weak and fatigued. I did ask her about chest pain and she stated that she had pain in her abdomen. She seemed very lethargic. She did get up enough to ask for water which she spilled all over the bed. She denied nausea and vomiting, numbness and tingling, fevers, sweats, chills. Review of Systems Review of Systems: All systems reviewed & are unremarkable except as noted in HPI and below Exam Const: General: cooperative, healthy appearing, no acute distress, well developed, ill appearing, intoxicated appearing, lethargic and tired appearing Nutritional Appearance: well nourished Orientation/consciousness: oriented to person, oriented to place, oriented to time and patient oriented x3 Limitations: no limitations HENMT: Head: normal to inspection Ears: hearing grossly normal bilaterally General nose exam: Normal external nose present Mouth: Yes Normal oral and palatal mucosa present, Yes lip normal and Yes tongue normal Teeth and gingiva: abnormal tooth and associated gingiva and poor dentition Eyes: General: appearance normal, both eyes and all related structures Neck: Neck: normal visual inspection, full ROM, trachea midline and supple Chest: Chest palpation & inspection: normal inspection of the chest Resp: Effort & Inspection: normal respiratory effort and able to speak in complete sentences Auscultation: clear to auscultation bilaterally Cardio: Jugular venous distension: no JVD Rate: regular rate Rhythm: regular rhythm Heart sounds: S1 normal heart sound present and S2 normal heart sound present Peripheral pulses: Peripheral pulses 2+ throughout GI: Inspection: normal to inspection GI Palp: Yes Soft to palpation and No Tenderness to palpation present (GI) Auscultation: normal bowel sounds Skin: General skin exam: normal color and no rashes or lesions noted Lesions: no lesions Rashes: no rashes Trauma: other (surgical incision middle abdomen) Wounds: wounds noted Hair: normal Nails: normal Neuro: General: oriented to person, oriented to place, oriented to ti
[2020-11-13] MEDS: MORPHINE SULFATE (*CRX) 2 MG/ML INJ IV PUSH ×2 (11:56→16:55)
[2020-11-14] VITALS (11 sets, daily range): BP systolic 134–151; BP diastolic 80–92; PULSE 94–114; RESP 14–20; TEMP 36.2–37.4; O2SAT 90–98
[2020-11-14] MEDS: MORPHINE SULFATE (*CRX) 4 MG/ML INJ IV PUSH ×4 (01:14→22:04)
[2020-11-14 05:46] LABS: Hematocrit 33.7 % (37.0-47.0); Hemoglobin 10.5 g/dL (12.0-15.0); Mean Corpuscular HGB Conc 31.2 g/dl (32-36); Mean Corpuscular Hemoglobin 26.1 pg (26-34); Mean Corpuscular Volume 83.6 fl (80-100); Mean Platelet Volume 10.5 fl (7.4-10.4); Platelet Count Result 359 k/mm3 (150-375); Red Blood Count 4.03 M/mm3 (4.2-5.4); Red Cell Distribution Width 15.5 % (11.5-14.5); White Blood Count 19.2 K/mm3 (4.5-10.0)
[2020-11-14 06:39] LABS: Anion Gap 8 mmol/L (8-16); Blood Urea Nitrogen 7 mg/dL (7-17); Calcium 8.3 mg/dL (8.4-10.2); Carbon Dioxide 26 mmol/L (22-30); Chloride 100 mmol/L (98-107); Estimated CRCL calculation 89 ml/min; Estimated Glomerular Filt Rate > 60; Glucose 77 mg/dL (65-110); Potassium 2.7 mmol/L (3.4-5.0); Sodium 134 mmol/L (137-145)
[2020-11-14] MEDS: SERTRALINE HCL 50 MG TABLET 150 MG PO (08:00)
[2020-11-14] MEDS: ENOXAPARIN 40 MG/0.4 ML SYRINGE SUB-Q (08:00)
[2020-11-14] MEDS: traZODone HCL 50 MG TABLET 100 MG PO (08:00)
[2020-11-14] MEDS: PANTOPRAZOLE SODIUM IV 40 MG VIAL IV PUSH ×2 (08:00→19:41)
[2020-11-14 10:28] LABS: Magnesium 1.5 mg/dL (1.6-2.3)
[2020-11-14] MEDS: MORPHINE SULFATE (*CRX) 2 MG/ML INJ IV PUSH ×4 (10:38→18:59)
--- NOTE | 2020-11-14 11:14 | PM.IMPN ---
Progress Note: A&P Assessment and Plan (1) Hypotension after procedure: Code(s): I95.81 - Postprocedural hypotension Status: Acute Assessment and Plan: Hypotension and tachycardia post ulcer repair resolved at this time BP 148/88 Strict I/O to continue Lactic acid 1.1, WBC 19.2, Blood cultures pending (11/13/20) Q4hr vital signs (2) Perforated duodenal ulcer: Code(s): K26.5 - Chronic or unspecified duodenal ulcer with perforation Status: Acute Assessment and Plan: POD 2 Postoperative management per Surgical Service. NG in place. NPO status. IV fluids LR 100ml/hr Antibiotics zosyn 3.375 Q6hr (3) Metabolic encephalopathy: Code(s): G93.41 - Metabolic encephalopathy Status: Acute Assessment and Plan: Likely due to postoperative state. monitor mental status closely Minimize mood altering/memory altering medications. (4) Depression: Code(s): F32.9 - Major depressive disorder, single episode, unspecified Status: Acute Assessment and Plan: restart patient's Zoloft 150 mg p.o. daily continue patient's trazodone 100 mg p.o. daily (5) Essential hypertension: Code(s): I10 - Essential (primary) hypertension Status: Acute Assessment and Plan: current blood pressure 148/88 continue metoprolol 50 mg p.o. b.i.d. trend blood pressure adjust medications as needed (6) Hypokalemia: Code(s): E87.6 - Hypokalemia Status: Acute Assessment and Plan: K 2.7 40mcg IV replacement trend labs replace as needed. Subjective Date/time seen: 11/14/20 10:45 Interval history: Ree Davis is a 35 year old female with a past medical history of depression, essential hypertension, DVT, and prior who had a closure of perforated duodenal ulcer with omentoplasty with Dr. Mathew 11/12/20. Today patient stated that she does not feel any different than she did yesterday. She said that her pain in her stomach is the same and that it is radiating to her back and shoulder. She has been getting up and using the bedside commode. She also complained of a headache that she started yesterday. She did say that her pain has been well controlled with the pain medications that have been ordered. She still does not have any bowel sounds and has not had a bowel movement. While examining her she did look to be breathing fast and she also seemed to look short of breath. I believe that this is probably related to her pain. She was also educated about moving around and getting off of her back. She stated that it hurts to move and roll around. Review of Systems Review of Systems: All systems reviewed & are unremarkable except as noted in HPI and below Exam Const: General: cooperative, healthy appearing, no acute distress, well developed, alert, awake, Physically active and ill appearing Nutritional Appearance: well nourished Orientation/consciousness: oriented to person, oriented to place, oriented to time, patient oriented x3 and lethargic Limitations: no limitations HENMT: Head: normal to inspection Ears: hearing grossly normal bilaterally General nose exam: Normal external nose present Mouth: Yes Normal oral and palatal mucosa present, Yes lip normal and Yes tongue normal Teeth and gingiva: abnormal tooth and associated gingiva and poor dentition Eyes: General: appearance normal, both eyes and all related structures Pupils: Equal, round and reactive pupils present Neck: Neck: normal visual inspection, full ROM, trachea midline and supple Chest: Chest palpation & inspection: normal inspection of the chest Resp: Effort & Inspection: normal respiratory effort and able to speak in complete sentences Auscultation: clear to auscultation bilaterally Cardio: Jugular venous distension: no JVD Rate: regular rate Rhythm: regular rhythm Heart
[2020-11-14] MEDS: IBUPROFEN IV 800 MG/200 ML 800 MG/200 ML BAG 400 MG IVPB (12:46)
[2020-11-14 12:52] LABS: Potassium 3.5 mmol/L (3.4-5.0)
[2020-11-14] MEDS: MAGNESIUM SULF 4 GM/WATER100ML 4 GM/100 ML BAG IVPB (14:16)
--- NOTE | 2020-11-14 14:34 | PM.PNGS ---
Progress Note: A&P Assessment and Plan (1) Perforated duodenal ulcer: Code(s): K26.5 - Chronic or unspecified duodenal ulcer with perforation Status: Acute Assessment and Plan: NG tube now in good position. Continue NPO, NG suction, IV fluids. encouraged patient to walk more. Explained that the best time is a half an hour to an hour after pain medication which she has just received. . Continue p.r.n. analgesics. Follow daily labs and exam. Because her white count became more elevated and often times we see fungus fluid after a perforated gastric ulcer I added micafungin today to her other antibiotic for added coverage since also her abdomen is more bloated and her ileus persists. (2) Peritonitis (acute) generalized: Code(s): K65.0 - Generalized (acute) peritonitis Status: Acute Assessment and Plan: Continue Zosyn Add micafungin as noted above. (3) Smoker: Code(s): F17.200 - Nicotine dependence, unspecified, uncomplicated Status: Chronic Assessment and Plan: Consider nicotine patch if needed, encouraged patient to stop. Subjective Subjective Date/Time Seen: 11/14/20 13:34 Post Op day: 2 Patient reports: still having pain, no flatus and no bowel movement Interval history: Patient lying in bed when I walked in the room. States she has not walked in the hallway yet. I emphasized the importance of doing this and that is best to do half an hour to an hour after she receives her pain medicine which she was receiving now. She states her abdomen still feels bloated. Review of Systems Review of Systems: All systems reviewed & are unremarkable except as noted in HPI and below Constitutional: Constitutional: Reports as per HPI, Reports anorexia, Denies body ache(s), Denies chills, Denies fever(s), Denies headache(s) and Reports poor appetite ENT: Denies headache(s) Cardiovascular: Cardiovascular: Denies chest pain and Denies dyspnea Respiratory: Respiratory: Denies cough and Denies dyspnea Gastrointestinal: Gastrointestinal: Reports as per HPI, Reports abdominal pain ( Incisional and bloating), Denies heartburn, Reports nausea and Denies vomiting Neurologic: Denies confusion and Denies headache(s) Psychiatric: Psychiatric: Denies confusion Exam Const: General: cooperative, no acute distress, well developed, alert, awake, ill appearing, tired appearing and uncomfortable; No confusion Nutritional Appearance: average body habitus and thin Orientation/consciousness: patient oriented x3 and No confusion HENMT: Head: normocephalic, atraumatic, no contusions and no scalp lesions Ears: external ears normal General nose exam: Normal external nose present Face and sinus: face symmetric and dry mucous membranes Mouth: Yes Normal oral and palatal mucosa present and Yes tongue normal Throat: posterior oropharynx normal Resp: Effort & Inspection: normal respiratory effort Auscultation: clear to auscultation bilaterally and diminished lung sounds bilateral in the lower lung carter Cardio: Rate: regular rate Rhythm: regular rhythm GI: Inspection: normal to inspection, distended, incision (Dressing removed today and incision inspected vaibhav okay dry and intact) and no visible herniation Auscultation: Hypoactive bowel sounds present Other: no erythema around the incision and new 4 x 4 gauze dressing and tape applied. : Other: Patient urinate okay with Poon out Skin: General skin exam: normal color, turgor normal and no erythema Lesions: no lesions Rashes: no rashes Trauma: no lacerations or abrasions Neuro: General: patient oriented x3 and No confusion Cranial nerves: Yes Equal, round and reactive pupils present Motor exam (neuro): Motor abnormalities not present Extrem: General: no clubbing, cyanosis or edema, no calf tenderness and no edema Psych: Affect: normal affect Thought process: Normal thought process present Insight: Good insight present (Psy
[2020-11-14] MEDS: MICAFUNGIN SODIUM 100 MG in SODIUM CHLORIDE 0.9% IV 100 ML IVPB (16:13)
[2020-11-14] MEDS: LACTATED RINGERS 1,000 ML 100 ML IV CONT (18:04)
[2020-11-14] MEDS: IBUPROFEN IV 800 MG/200 ML 800 MG/200 ML BAG 200 MG IVPB (21:06)
[2020-11-15 02:00] VITALS: BP 134/87; PULSE 89; RESP 20; TEMP 36.6; O2SAT 98
[2020-11-15] MEDS: ONDANSETRON INJ 4 MG/2 ML VIAL IV PUSH ×2 (04:45→16:25)
[2020-11-15 05:40] LABS: Hemoglobin 9.7 g/dL (12.0-15.0); Mean Corpuscular HGB Conc 30.3 g/dl (32-36); Mean Corpuscular Hemoglobin 25.4 pg (26-34); Mean Corpuscular Volume 83.8 fl (80-100); Mean Platelet Volume 9.7 fl (7.4-10.4); Platelet Count Result 292 k/mm3 (150-375); Red Blood Count 3.82 M/mm3 (4.2-5.4); Red Cell Distribution Width 15.5 % (11.5-14.5); White Blood Count 16.8 K/mm3 (4.5-10.0)
[2020-11-15 06:00] VITALS: BP 153/89; PULSE 88; RESP 20; TEMP 36.9; O2SAT 98
[2020-11-15 06:01] LABS: Magnesium 1.8 mg/dL (1.6-2.3)
[2020-11-15 06:03] LABS: Anion Gap 7 mmol/L (8-16); Blood Urea Nitrogen 6 mg/dL (7-17); Calcium 8.2 mg/dL (8.4-10.2); Carbon Dioxide 23 mmol/L (22-30); Chloride 106 mmol/L (98-107); Estimated CRCL calculation 137 ml/min; Estimated Glomerular Filt Rate > 60; Glucose 87 mg/dL (65-110); Potassium 3.3 mmol/L (3.4-5.0); Sodium 136 mmol/L (137-145)
[2020-11-15] MEDS: ENOXAPARIN 40 MG/0.4 ML SYRINGE SUB-Q (08:19)
[2020-11-15] MEDS: PANTOPRAZOLE SODIUM IV 40 MG VIAL IV PUSH ×2 (08:19→21:42)
[2020-11-15] MEDS: traZODone HCL 50 MG TABLET 100 MG PO (08:20)
[2020-11-15] MEDS: SERTRALINE HCL 50 MG TABLET 150 MG PO (08:20)
[2020-11-15] MEDS: MORPHINE SULFATE (*CRX) 2 MG/ML INJ IV PUSH ×5 (08:43→22:26)
[2020-11-15] MEDS: MICAFUNGIN SODIUM 100 MG in SODIUM CHLORIDE 0.9% IV 100 ML IVPB (08:50)
[2020-11-15 09:41] VITALS: BP 143/80; PULSE 76; RESP 18; TEMP 36.4; O2SAT 95
--- NOTE | 2020-11-15 10:49 | PC.NURSE ---
UNABLE TO START IV KCL AT 0900, WAITING FOR PHARMACY TO SEND IT UP
--- NOTE | 2020-11-15 12:06 | P.PNIM_ITS ---
Progress Note: A&P Assessment and Plan (1) Hypotension after procedure: Code(s): I95.81 - Postprocedural hypotension Status: Acute Assessment and Plan: * Hypotension and tachycardia post ulcer repair * resolved at this time * BP 143/80 * Strict I/O to continue * Blood cultures NGTD (11/15/20) * WBC trending down 16.8 * Q4hr vital signs (2) Perforated duodenal ulcer: Code(s): K26.5 - Chronic or unspecified duodenal ulcer with perforation Status: Acute Assessment and Plan: * POD 3 * Postoperative management per Surgical Service. * NG in place. * NPO status. * IV fluids LR 100ml/hr * Antibiotics zosyn 3.375 Q6hr, micafungin 100mg also added (3) Metabolic encephalopathy: Code(s): G93.41 - Metabolic encephalopathy Status: Acute Assessment and Plan: * Resolved, patient is alert and oriented x3, awake, and moving around * monitor mental status closely * Minimize mood altering/memory altering medications. (4) Depression: Code(s): F32.9 - Major depressive disorder, single episode, unspecified Status: Acute Assessment and Plan: * Zoloft 150 mg p.o. daily * continue patient's trazodone 100 mg p.o. daily (5) Essential hypertension: Code(s): I10 - Essential (primary) hypertension Status: Acute Assessment and Plan: * current blood pressure 143/80 * continue metoprolol 50 mg p.o. b.i.d. * trend blood pressure * adjust medications as needed (6) Hypokalemia: Code(s): E87.6 - Hypokalemia Status: Acute Assessment and Plan: * K 3.3 * 40mcg IV replacement ordered will give when access is available * trend labs * replace as needed. Time Spent With Patient Time with patient: 25 - 35 minutes Subjective Date/time seen: 11/15/20 11:00 Interval history: Patient is a 35-year-old female who is postop surgical repair of a perforated duodenal ulcer. Patient stated that she is doing little bit better today pain is getting better. She also stated that she is having gas. she has also asked me if she could have some ice chips which would be deferred to surgery. I did reiterate with Dr. Carrera said about getting up and getting out of bed walking around which will probably help her pain and help the bowels to wake up and get moving. Patient denies chest pain, shortness of breath, nausea vomiting, diarrhea constipation. Patient did say that she still has a slight headache however it is getting better. Review of Systems Review of Systems: All systems reviewed & are unremarkable except as noted in HPI and below Exam Const: General: cooperative, healthy appearing, no acute distress, well developed, alert, awake, Physically active, ill appearing and lethargic Nutritional Appearance: well nourished Orientation/consciousness: oriented to person, oriented to place, oriented to time, patient oriented x3 and lethargic Limitations: no limitations HENMT: Head: normal to inspection Ears: hearing grossly normal bilaterally General nose exam: Normal external nose present Mouth: Yes Normal oral and palatal mucosa present, Yes lip normal and Yes tongue normal Teeth and gingiv a: abnormal tooth and associated gingiva and poor dentition Eyes: General: appearance normal, both eyes and all related structures Pupils: Equal, round and reactive pupils prese
--- NOTE | 2020-11-15 12:06 | PM.IMPN ---
Progress Note: A&P Assessment and Plan (1) Hypotension after procedure: Code(s): I95.81 - Postprocedural hypotension Status: Acute Assessment and Plan: Hypotension and tachycardia post ulcer repair resolved at this time BP 143/80 Strict I/O to continue Blood cultures NGTD (11/15/20) WBC trending down 16.8 Q4hr vital signs (2) Perforated duodenal ulcer: Code(s): K26.5 - Chronic or unspecified duodenal ulcer with perforation Status: Acute Assessment and Plan: POD 3 Postoperative management per Surgical Service. NG in place. NPO status. IV fluids LR 100ml/hr Antibiotics zosyn 3.375 Q6hr, micafungin 100mg also added (3) Metabolic encephalopathy: Code(s): G93.41 - Metabolic encephalopathy Status: Acute Assessment and Plan: Resolved, patient is alert and oriented x3, awake, and moving around monitor mental status closely Minimize mood altering/memory altering medications. (4) Depression: Code(s): F32.9 - Major depressive disorder, single episode, unspecified Status: Acute Assessment and Plan: Zoloft 150 mg p.o. daily continue patient's trazodone 100 mg p.o. daily (5) Essential hypertension: Code(s): I10 - Essential (primary) hypertension Status: Acute Assessment and Plan: current blood pressure 143/80 continue metoprolol 50 mg p.o. b.i.d. trend blood pressure adjust medications as needed (6) Hypokalemia: Code(s): E87.6 - Hypokalemia Status: Acute Assessment and Plan: K 3.3 40mcg IV replacement ordered will give when access is available trend labs replace as needed. Time Spent With Patient Time with patient: 25 - 35 minutes Subjective Date/time seen: 11/15/20 11:00 Interval history: Patient is a 35-year-old female who is postop surgical repair of a perforated duodenal ulcer. Patient stated that she is doing little bit better today pain is getting better. She also stated that she is having gas. she has also asked me if she could have some ice chips which would be deferred to surgery. I did reiterate with Dr. Carrera said about getting up and getting out of bed walking around which will probably help her pain and help the bowels to wake up and get moving. Patient denies chest pain, shortness of breath, nausea vomiting, diarrhea constipation. Patient did say that she still has a slight headache however it is getting better. Review of Systems Review of Systems: All systems reviewed & are unremarkable except as noted in HPI and below Exam Const: General: cooperative, healthy appearing, no acute distress, well developed, alert, awake, Physically active, ill appearing and lethargic Nutritional Appearance: well nourished Orientation/consciousness: oriented to person, oriented to place, oriented to time, patient oriented x3 and lethargic Limitations: no limitations HENMT: Head: normal to inspection Ears: hearing grossly normal bilaterally General nose exam: Normal external nose present Mouth: Yes Normal oral and palatal mucosa present, Yes lip normal and Yes tongue normal Teeth and gingiva: abnormal tooth and associated gingiva and poor dentition Eyes: General: appearance normal, both eyes and all related structures Pupils: Equal, round and reactive pupils present Neck: Neck: normal visual inspection, full ROM, trachea midline and supple Chest: Chest palpation & inspection: normal inspection of the chest Resp: Effort & Inspection: normal respiratory effort and able to speak in complete sentences Auscultation: clear to auscultation bilaterally Cardio: Jugular venous distension: no JVD Rate: regular rate Rhythm: regular rhythm Heart sounds: S1 normal heart sound present and S2 normal heart sound present Peripheral pulses: Peripheral pulses 2+ throughout GI: Inspection: normal to inspection Auscultatio
[2020-11-15 14:00] VITALS: BP 150/86; PULSE 84; RESP 18; TEMP 36.8; O2SAT 95
--- NOTE | 2020-11-15 16:06 | PM.PNGS ---
Progress Note: A&P Assessment and Plan (1) Perforated duodenal ulcer: Code(s): K26.5 - Chronic or unspecified duodenal ulcer with perforation Status: Acute Assessment and Plan: NG tube now in good position. Continue NPO, NG suction, IV fluids. encouraged patient to walk more out side of room. Explained that the best time is a half an hour to an hour after pain medication which she has just received. . Continue p.r.n. analgesics. Follow daily labs and exam. On 11/14,because her white count became more elevated and often times we see fungus in the fluid after a perforated gastric ulcer I added micafungin to her other antibiotic for added coverage since also her abdomen was more bloated and her ileus persisted. Today her white count is down a little bit and her abdomen is slightly less distended. (2) Peritonitis (acute) generalized: Code(s): K65.0 - Generalized (acute) peritonitis Status: Acute Assessment and Plan: Continue Zosyn and micafungin as noted above. (3) Smoker: Code(s): F17.200 - Nicotine dependence, unspecified, uncomplicated Status: Chronic Assessment and Plan: Consider nicotine patch if needed, encouraged patient to stop. Subjective Subjective Date/Time Seen: 11/15/20 16:06 Post Op day: 3 Patient reports: no new complaints, feels better, bowel movement and afebrile Interval history: Patient lying bed when I entered the room. States she has been getting out bed. Approves some ice chips she has like these. States pain is not bad. Review of Systems Review of Systems: All systems reviewed & are unremarkable except as noted in HPI and below Constitutional: Constitutional: Reports as per HPI, Reports anorexia, Denies body ache(s), Denies chills, Denies fever(s), Denies headache(s) and Reports poor appetite ENT: Denies headache(s) Cardiovascular: Cardiovascular: Denies chest pain and Denies dyspnea Respiratory: Respiratory: Denies cough and Denies dyspnea Gastrointestinal: Gastrointestinal: Reports as per HPI, Reports abdominal pain ( Incisional and bloating), Denies heartburn, Reports nausea and Denies vomiting Neurologic: Denies confusion and Denies headache(s) Psychiatric: Psychiatric: Denies confusion Exam Const: General: cooperative, no acute distress, well developed, alert, awake, ill appearing, tired appearing and uncomfortable; No confusion Nutritional Appearance: average body habitus and thin Orientation/consciousness: patient oriented x3 and No confusion HENMT: Head: normocephalic, atraumatic, no contusions and no scalp lesions Ears: external ears normal General nose exam: Normal external nose present Face and sinus: face symmetric and dry mucous membranes Mouth: Yes Normal oral and palatal mucosa present and Yes tongue normal Throat: posterior oropharynx normal Eyes: Conjunctivae: conjunctivae normal Sclera: sclerae normal Pupils: Equal, round and reactive pupils present EOM: EOMs intact bilaterally Neck: Neck: normal visual inspection, no lymphadenopathy, trachea midline, supple, nontender and no JVD Thyroid: abnormal thyroid Resp: Effort & Inspection: normal respiratory effort Auscultation: clear to auscultation bilaterally and diminished lung sounds bilateral in the lower lung carter Cardio: Rate: regular rate Rhythm: regular rhythm GI: Inspection: normal to inspection, distended, incision (Dressing removed today and incision inspected vaibhav okay dry and intact) and no visible herniation Auscultation: Hypoactive bowel sounds present Other: no erythema around the incision. Dressing dry & intact. : Other: Patient urinating okay with Poon out Skin: General skin exam: normal color, turgor normal and no erythema Lesions: no lesions Rashes: no rashes Trauma: no lacerations or abrasions Neuro: General: patient oriented x3 and No confusion Cranial nerves: Yes Equal, round and reactive pupils present Motor
[2020-11-15] MEDS: LACTATED RINGERS 1,000 ML 100 ML IV CONT (16:18)
[2020-11-15 17:34] VITALS: BP 151/89; PULSE 84; RESP 18; TEMP 36.9; O2SAT 91
[2020-11-15 22:00] VITALS: BP 149/73; PULSE 85; RESP 18; TEMP 36.6; O2SAT 97
[2020-11-16] VITALS (7 sets, daily range): BP systolic 117–158; BP diastolic 81–93; PULSE 73–86; RESP 16–18; TEMP 36.1–36.7; O2SAT 94–97
[2020-11-16] MEDS: MORPHINE SULFATE (*CRX) 2 MG/ML INJ IV PUSH ×2 (02:44→05:08)
[2020-11-16] MEDS: LACTATED RINGERS 1,000 ML 100 ML IV CONT (04:25)
[2020-11-16 06:07] LABS: Hematocrit 30.6 % (37.0-47.0); Hemoglobin 9.5 g/dL (12.0-15.0); Mean Corpuscular Hemoglobin 25.4 pg (26-34); Mean Corpuscular Volume 81.8 fl (80-100); Mean Platelet Volume 10.2 fl (7.4-10.4); Platelet Count Result 305 k/mm3 (150-375); Red Blood Count 3.74 M/mm3 (4.2-5.4); Red Cell Distribution Width 15.5 % (11.5-14.5); White Blood Count 12.3 K/mm3 (4.5-10.0)
[2020-11-16 06:23] LABS: Anion Gap 7 mmol/L (8-16); Blood Urea Nitrogen 6 mg/dL (7-17); Calcium 8.2 mg/dL (8.4-10.2); Carbon Dioxide 24 mmol/L (22-30); Chloride 103 mmol/L (98-107); Estimated CRCL calculation 137 ml/min; Estimated Glomerular Filt Rate > 60; Glucose 85 mg/dL (65-110); Potassium 3.5 mmol/L (3.4-5.0); Sodium 134 mmol/L (137-145)
[2020-11-16] MEDS: BENZOCAINE/MENTHOL (*BKC) 18 EA LOZENGE 1 LOZENGE PO (08:25)
[2020-11-16] MEDS: MICAFUNGIN SODIUM 100 MG in SODIUM CHLORIDE 0.9% IV 100 ML IVPB (08:26)
[2020-11-16] MEDS: PANTOPRAZOLE 40 MG TABLET PO ×2 (08:26→22:09)
[2020-11-16] MEDS: SERTRALINE HCL 50 MG TABLET 150 MG PO (08:27)
[2020-11-16] MEDS: traZODone HCL 50 MG TABLET 100 MG PO (08:27)
[2020-11-16] MEDS: ENOXAPARIN 40 MG/0.4 ML SYRINGE SUB-Q (08:27)
[2020-11-16] MEDS: HYDROcodone/acetaminophen (*CRX) 5-325 MG TABLET 1 TAB PO ×3 (08:32→22:08)
--- NOTE | 2020-11-16 10:53 | PM.PNGS ---
Progress Note: A&P Assessment and Plan (1) Perforated duodenal ulcer: Code(s): K26.5 - Chronic or unspecified duodenal ulcer with perforation Status: Acute Assessment and Plan: bowel function returning. Will DC NG tube and start full liquids. Continue ambulation. Continue antibiotics. Changed to oral Protonix. Making good progress (2) Peritonitis (acute) generalized: Code(s): K65.0 - Generalized (acute) peritonitis Status: Acute (3) Smoker: Code(s): F17.200 - Nicotine dependence, unspecified, uncomplicated Status: Chronic Subjective Subjective Date/Time Seen: 11/16/20 10:53 Post Op day: 4 Patient reports: no new complaints, feels better, bowel movement and afebrile Exam GI: Inspection: non-distended and incision ( dry, healing well) GI Palp: Yes Soft to palpation and Yes Tenderness to palpation present (GI) ( mild appropriate tenderness) Objective Data Vital Signs Vital Signs: Vital Signs - 24 hr 11/15/20 14:00 11/15/20 17:34 11/15/20 22:00 Temperature 36.8 C 36.9 C 36.6 C Pulse Rate 84 84 85 Respiratory Rate 18 18 18 Blood Pressure 150/86 H 151/89 H 149/73 H Pulse Oximetry 95 91 97 11/16/20 02:00 11/16/20 06:00 Temperature 36.7 C 36.2 C L Pulse Rate 76 80 Respiratory Rate 18 18 Blood Pressure 149/88 H 117/93 H Pulse Oximetry 96 96 Intake/Output Intake/Output: Intake & Output 11/13/20 11/14/20 11/15/20 11/16/20 23:59 23:59 23:59 23:59 Intake Total 2800 1800 1300 1100 Output Total 2100 2750 800 425 Balance 700 -950 500 675 Meds/Results Medications: Active Medications Generic Name Dose Route Start Last Admin Trade Name Freq PRN Reason Stop Dose Admin Acetaminophen 500 mg 11/16/20 06:49 Acetaminophen 500 Mg Tablet PO Q6H PRN Mild Pain (1-3) or Fever Hydrocodone Bitart/Acetaminophen 1 tab 11/16/20 06:49 11/16/20 08:32 Hydrocodone/Acetaminophen (*Crx) 5-325 Mg Tablet PO 1 tab Q4H PRN Administration Pain Rated 4-6 Hydrocodone Bitart/Acetaminophen 1 tab 11/16/20 06:49 Hydrocodone/Acetaminophen (*Crx) 10-325 Mg Tablet PO Q6H PRN Pain Rated 7-10 Benzocaine 1 lozenge 11/15/20 16:03 11/16/20 08:25 Benzocaine/Menthol (*Bkc) 18 Ea Lozenge PO 1 lozenge PRN PRN Administration Sore Throat Enoxaparin Sodium 40 mg 11/13/20 09:00 11/16/20 08:27 Enoxaparin 40 Mg/0.4 Ml Syringe SUB-Q 40 mg DAILY KIRAN Administration Lactated Ringer's 1,000 mls @ 100 mls/hr 11/12/20 14:06 11/16/20 04:28 Lr - Lactated Ringers Iv IV CONT Not Given .Q10H KIRAN Piperacillin/Tazobactam/Dextrose 3.375 gm in 50 mls @ 100 mls/hr 11/12/20 18:00 11/16/20 07:00 Zosyn 3.375 Gm/D5w 50ml Pm IVPB Infused Q6HR KIRAN Infusion Micafungin Sodium 100 mg/ 100 mls @ 100 mls/hr 11/14/20 14:40 11/16/20 08:26 Sodium Chloride IVPB 100 mls/hr DAILY KIRAN Administration Metoprolol Tartrate 50 mg 11/12/20 21:00 11/12/20 22:46 Metoprolol Tartrate 50 Mg Tab PO Not Given Q12HR KIRAN Morphine Sulfate 2 mg 11/12/20 16:44 11/16/20 05:08 Morphine Sulfate (*Crx) 2 Mg/Ml Inj IV PUSH 2 mg Q2H PRN Administration Pain Rated 4-6 Morphine Sulfate 4 mg 11/12/20 16:44 11/14/20 22:04 Morphine Sulfate (*Crx) 4 Mg/Ml Inj IV PUSH 4 mg Q2H PRN Administration Pain Rated 7-10 Naloxone HCl 0.1 mg 11/12/20 16:44 Naloxone Hcl 0.4 Mg/Ml Vial IV PUSH Q2M PRN Opiate Reversal Ondansetron HCl 4 mg 11/12/20 14:06 11/15/20 16:25 Ondansetron Inj 4 Mg/2 Ml Vial IV PUSH 4 mg Q4H PRN Administration Nausea And Vomiting Pantoprazole Sodium 40 mg 11/16/20 09:00 11/16/20 08:26 Pantoprazole 40 Mg Tablet PO 40 mg Q12HR KIRAN Administration Sertraline HCl 150 mg 11/13/20 09:00 11/16/20 08:27 Sertraline Hcl 50 Mg Tablet PO 150 mg DAILY KIRAN Administration Trazodone HCl 100 mg 11/13/20 09:00 11/16/20 08:27 Trazodone Hcl 50 Mg Tablet PO 100
[2020-11-16] MEDS: POTASSIUM CHLORIDE 20 MEQ TABLET.ER PO (16:40)
--- NOTE | 2020-11-16 17:03 | PM.IMPN ---
Progress Note: A&P Assessment and Plan (1) Perforated duodenal ulcer: Code(s): K26.5 - Chronic or unspecified duodenal ulcer with perforation Status: Acute Assessment and Plan: POD 4 Postoperative management per Surgical Service. NG in place. NPO status. IV fluids LR 100ml/hr Antibiotics zosyn 3.375 Q6hr, micafungin 100mg also added (2) Depression: Code(s): F32.9 - Major depressive disorder, single episode, unspecified Status: Acute Assessment and Plan: Zoloft 150 mg p.o. daily continue patient's trazodone 100 mg p.o. daily (3) Essential hypertension: Code(s): I10 - Essential (primary) hypertension Status: Acute Assessment and Plan: current blood pressure 149/73 continue metoprolol 50 mg p.o. b.i.d. now that she is able to take PO trend blood pressure adjust medications as needed (4) Hypokalemia: Code(s): E87.6 - Hypokalemia Status: Acute Assessment and Plan: K 3.5 trend labs replace as needed. Time Spent With Patient Time with patient: 15 - 25 minutes Subjective Date/time seen: 11/16/20 17:03 Interval history: patient is a 35-year-old female here for a perforated ulcer repair. Patient does not have complaints today she does not have any nausea or vomiting chest pain or shortness of breath. patient stated that she was up walking the halls yesterday and that she does feel better. She was excited also that everything was changed to p.o. and she was able to take things by mouth. She also stated that her pain is being controlled and her headache has dissipated. Review of Systems Review of Systems: All systems reviewed & are unremarkable except as noted in HPI and below Exam Const: General: cooperative, healthy appearing, comfortable, no acute distress, well developed, alert, awake and Physically active Nutritional Appearance: well nourished Orientation/consciousness: oriented to person, oriented to place, oriented to time and patient oriented x3 Limitations: no limitations HENMT: Head: normal to inspection Ears: hearing grossly normal bilaterally General nose exam: Normal external nose present Mouth: Yes Normal oral and palatal mucosa present, Yes lip normal and Yes tongue normal Teeth and gingiva: abnormal tooth and associated gingiva and poor dentition Eyes: General: appearance normal, both eyes and all related structures Pupils: Equal, round and reactive pupils present Neck: Neck: normal visual inspection, full ROM, trachea midline and supple Chest: Chest palpation & inspection: normal inspection of the chest Resp: Effort & Inspection: normal respiratory effort and able to speak in complete sentences Auscultation: clear to auscultation bilaterally Cardio: Jugular venous distension: no JVD Rate: regular rate Rhythm: regular rhythm Heart sounds: S1 normal heart sound present and S2 normal heart sound present Peripheral pulses: Peripheral pulses 2+ throughout GI: Inspection: normal to inspection Auscultation: Hypoactive bowel sounds present Skin: General skin exam: normal color and no rashes or lesions noted Lesions: no lesions Rashes: no rashes Trauma: other (surgical incision middle abdomen) Wounds: wounds noted Hair: normal Nails: normal Neuro: General: oriented to person, oriented to place, oriented to time, patient oriented x3, moves all extremities, Normal light touch and pain sensation, CN's II-XI intact bilaterally and Unable to assess gait Cranial nerves: Yes CN's II-XII intact bilaterally, Yes Equal, round and reactive pupils present, Yes Bilaterally intact EOM present and Yes Midline tongue present Speech: normal speech Gait exam (Neuro): Unable to assess gait Motor exam (neuro): 5/5 motor strength present throughout Extrem: General: normal to inspection Right upper extremity: normal to inspection, full ROM and normal capillary refill Left upper ext
[2020-11-16] MEDS: METOPROLOL TARTRATE 50 MG TAB PO (22:09)
[2020-11-16] MEDS: LACTATED RINGERS 1,000 ML 60 ML IV CONT (23:55)
[2020-11-17] VITALS (9 sets, daily range): BP systolic 107–150; BP diastolic 81–92; PULSE 66–78; RESP 14–20; TEMP 36.1–36.5; O2SAT 97–99
[2020-11-17] MEDS: HYDROcodone/acetaminophen (*CRX) 5-325 MG TABLET 1 TAB PO ×5 (01:45→18:27)
[2020-11-17 05:44] LABS: Hematocrit 28.3 % (37.0-47.0); Hemoglobin 8.4 g/dL (12.0-15.0); Mean Corpuscular HGB Conc 29.7 g/dl (32-36); Mean Corpuscular Hemoglobin 25.1 pg (26-34); Mean Corpuscular Volume 84.7 fl (80-100); Mean Platelet Volume 10.4 fl (7.4-10.4); Platelet Count Result 318 k/mm3 (150-375); Red Blood Count 3.34 M/mm3 (4.2-5.4); Red Cell Distribution Width 15.8 % (11.5-14.5); White Blood Count 8.9 K/mm3 (4.5-10.0)
[2020-11-17 05:57] LABS: Anion Gap 5 mmol/L (8-16); Blood Urea Nitrogen 4 mg/dL (7-17); Calcium 7.9 mg/dL (8.4-10.2); Carbon Dioxide 29 mmol/L (22-30); Chloride 99 mmol/L (98-107); Estimated CRCL calculation 137 ml/min; Estimated Glomerular Filt Rate > 60; Glucose 104 mg/dL (65-110); Potassium 3.3 mmol/L (3.4-5.0); Sodium 133 mmol/L (137-145)
--- NOTE | 2020-11-17 08:23 | PM.PNGS ---
Progress Note: A&P Assessment and Plan (1) Perforated duodenal ulcer: Code(s): K26.5 - Chronic or unspecified duodenal ulcer with perforation Status: Acute Assessment and Plan: Continues to make good progress. Advanced to low-fiber diet today. Continue IV antimicrobials. Continue Protonix orally b.i.d.. Increase ambulation. Tentatively plan on discharge on . (2) Hypokalemia: Code(s): E87.6 - Hypokalemia Status: Acute Assessment and Plan: Improving with supplementation (3) Peritonitis (acute) generalized: Code(s): K65.0 - Generalized (acute) peritonitis Status: Acute Assessment and Plan: Continue antimicrobials. Bowel function has returned (4) Smoker: Code(s): F17.200 - Nicotine dependence, unspecified, uncomplicated Status: Chronic Subjective Subjective Date/Time Seen: 11/17/20 08:23 Post Op day: 5 Patient reports: feels better, tolerating liquids well, bowel movement and afebrile Exam GI: Inspection: non-distended and incision (Dry and healing well) GI Palp: Yes Soft to palpation and Yes Tenderness to palpation present (GI) (Mild appropriate tenderness) Auscultation: normal bowel sounds Objective Data Vital Signs Vital Signs: Vital Signs - 24 hr 11/16/20 10:00 11/16/20 13:56 11/16/20 18:00 Temperature 36.6 C 36.1 C L 36.4 C Pulse Rate 73 83 86 Respiratory Rate 18 16 18 Blood Pressure 121/81 134/88 158/91 H Pulse Oximetry 97 94 96 11/16/20 22:00 11/16/20 22:09 11/17/20 02:00 Temperature 36.3 C L 36.5 C Pulse Rate 80 80 70 Respiratory Rate 18 20 Blood Pressure 149/92 H 107/92 H Pulse Oximetry 96 98 11/17/20 06:00 Temperature 36.5 C Pulse Rate 67 Respiratory Rate 20 Blood Pressure 141/81 H Pulse Oximetry 99 Intake/Output Intake/Output: Intake & Output 11/14/20 11/15/20 11/16/20 11/17/20 23:59 23:59 23:59 23:59 Intake Total 1800 1300 3330 870 Output Total 2750 800 1225 1000 Balance -796 119 6240 -130 Meds/Results Medications: Active Medications Generic Name Dose Route Start Last Admin Trade Name Freq PRN Reason Stop Dose Admin Acetaminophen 500 mg 11/16/20 06:49 Acetaminophen 500 Mg Tablet PO Q6H PRN Mild Pain (1-3) or Fever Hydrocodone Bitart/Acetaminophen 1 tab 11/16/20 06:49 11/17/20 05:36 Hydrocodone/Acetaminophen (*Crx) 5-325 Mg Tablet PO 1 tab Q4H PRN Administration Pain Rated 4-6 Hydrocodone Bitart/Acetaminophen 1 tab 11/16/20 06:49 Hydrocodone/Acetaminophen (*Crx) 10-325 Mg Tablet PO Q6H PRN Pain Rated 7-10 Benzocaine 1 lozenge 11/15/20 16:03 11/16/20 08:25 Benzocaine/Menthol (*Bkc) 18 Ea Lozenge PO 1 lozenge PRN PRN Administration Sore Throat Enoxaparin Sodium 40 mg 11/13/20 09:00 11/16/20 08:27 Enoxaparin 40 Mg/0.4 Ml Syringe SUB-Q 40 mg DAILY KIRAN Administration Lactated Ringer's 1,000 mls @ 60 mls/hr 11/12/20 14:06 11/16/20 23:55 Lr - Lactated Ringers Iv IV CONT 60 mls/hr .[id number] KIRAN Administration Piperacillin/Tazobactam/Dextrose 3.375 gm in 50 mls @ 100 mls/hr 11/12/20 18:00 11/17/20 06:10 Zosyn 3.375 Gm/D5w 50ml Pm IVPB Infused Q6HR KIRAN Infusion Micafungin Sodium 100 mg/ 100 mls @ 100 mls/hr 11/14/20 14:40 11/16/20 09:26 Sodium Chloride IVPB Infused DAILY KIRAN Infusion Metoprolol Tartrate 50 mg 11/12/20 21:00 11/16/20 22:09 Metoprolol Tartrate 50 Mg Tab PO 50 mg Q12HR KIRAN Administration Morphine Sulfate 2 mg 11/12/20 16:44 11/16/20 05:08 Morphine Sulfate (*Crx) 2 Mg/Ml Inj IV PUSH 2 mg Q2H PRN Administration Pain Rated 4-6 Morphine Sulfate 4 mg 11/12/20 16:44 11/14/20 22:04 Morphine Sulfate (*Crx) 4 Mg/Ml Inj IV PUSH 4 mg Q2H PRN Administration Pain Rated 7-10 Naloxone HCl 0.1 mg 11/12/20 16:44 Naloxone Hcl 0.4 Mg/Ml Vial IV PUSH Q2M PRN Opiate Reversal Ondansetron HCl 4 mg 11/12/20 14:06 11/15/20 16:2
[2020-11-17] MEDS: MICAFUNGIN SODIUM 100 MG in SODIUM CHLORIDE 0.9% IV 100 ML IVPB (08:37)
[2020-11-17] MEDS: POTASSIUM CHLORIDE 20 MEQ TABLET.ER PO ×2 (08:38→16:28)
[2020-11-17] MEDS: METOPROLOL TARTRATE 50 MG TAB PO ×2 (08:38→20:11)
[2020-11-17] MEDS: traZODone HCL 50 MG TABLET 100 MG PO (08:38)
[2020-11-17] MEDS: ENOXAPARIN 40 MG/0.4 ML SYRINGE SUB-Q (08:39)
[2020-11-17] MEDS: SERTRALINE HCL 50 MG TABLET 150 MG PO (08:39)
[2020-11-17] MEDS: PANTOPRAZOLE 40 MG TABLET PO ×2 (08:39→20:11)
[2020-11-17 14:09] LABS: Magnesium 1.4 mg/dL (1.6-2.3)
--- NOTE | 2020-11-17 14:48 | PM.IMPN ---
Progress Note: A&P Assessment and Plan (1) Perforated duodenal ulcer: Code(s): K26.5 - Chronic or unspecified duodenal ulcer with perforation Status: Acute Assessment and Plan: POD Day #5 Postoperative management per Surgical Service. Surgery advancing diet as needed IV fluids discontinued IV PPI Q12hrs Antibiotics zosyn 3.375 Q6hr, and micafungin 100mg (2) Depression: Code(s): F32.9 - Major depressive disorder, single episode, unspecified Status: Acute Assessment and Plan: Zoloft 150 mg p.o. daily continue patient's trazodone 100 mg p.o. daily (3) Essential hypertension: Code(s): I10 - Essential (primary) hypertension Status: Acute Assessment and Plan: Current blood pressure 141/81 Continue metoprolol 50 mg p.o. b.i.d. now that she is able to take PO Trend blood pressure Adjust medications as needed (4) Hypokalemia: Code(s): E87.6 - Hypokalemia Status: Acute Assessment and Plan: Most likely due to surgery and advancement of her diet. K 3.3 and Mag 1.4, will give IV Mag 3 g and PO Potassium 20 mEq BIDWM scheduled. trend labs replace as needed. Time Spent With Patient Time with patient: 25 - 35 minutes Subjective Date/time seen: 11/17/20 14:48 Interval history: Patient is a 35-year-old female here for a perforated ulcer repair. Date of Service 11/17/20: Patient reports feeling well today. She still has some mild abdominal discomfort from her surgery. She is eating and drinking without any issues at this time. The patient denies any fevers, chills, chest pain, shortness of breath, cough, leg swelling, calf pain, or any other symptoms at this time. Review of Systems Review of Systems: All systems reviewed & are unremarkable except as noted in HPI and below Exam Narrative: General: 35-year-old woman sitting up in bed. Appears comfortable. In no acute distress. Skin: No jaundice or cyanosis. Good skin turgor. Neck: Full range of motion. Supple. Respiratory: Lungs are clear to auscultation bilaterally. No bony chest wall tenderness. Cardiovascular: The heart has a regular rate and rhythm without murmur. Lower extremities: No lower extremity edema. Distal pulses are easily palpated. No calf tenderness to palpation. Gastrointestinal: The abdomen is soft, nontender and nondistended with active bowel sounds. Psychiatric: Lucid and oriented. Memory intact. Neurologic: No focal deficits. Speech is clear. No facial drooping. Objective Data Vital Signs Vital Signs: Vital Signs - 24 hr 11/16/20 18:00 11/16/20 22:00 11/16/20 22:09 Temperature 97.6 F 97.3 F L Pulse Rate 86 80 80 Respiratory Rate 18 18 Blood Pressure 158/91 H 149/92 H Pulse Oximetry 96 96 11/17/20 02:00 11/17/20 06:00 11/17/20 08:38 Temperature 97.7 F 97.7 F Pulse Rate 70 67 67 Respiratory Rate 20 20 Blood Pressure 107/92 H 141/81 H Pulse Oximetry 98 99 11/17/20 08:48 Temperature 97.7 F Pulse Rate 78 Respiratory Rate 14 Blood Pressure 142/91 H Pulse Oximetry 99 Intake/Output Intake/Output: Intake & Output 11/14/20 11/15/20 11/16/20 11/17/20 23:59 23:59 23:59 23:59 Intake Total 1800 1300 3330 1200 Output Total 2750 800 1225 1000 Balance -754 036 5122 200 Meds/Results Medications: Active Medications Generic Name Dose Route Start Last Admin Trade Name Freq PRN Reason Stop Dose Admin Acetaminophen 500 mg 11/16/20 06:49 Acetaminophen 500 Mg Tablet PO Q6H PRN Mild Pain (1-3) or Fever Hydrocodone Bitart/Acetaminophen 1 tab 11/16/20 06:49 11/17/20 14:17 Hydrocodone/Acetaminophen (*Crx) 5-325 Mg Tablet PO 1 tab Q4H PRN Administration Pain Rated 4-6 Hydrocodone Bitart/Acetaminophen 1 tab 11/16/20 06:49 Hydrocodone/Acetaminophen (*Crx) 10-325 Mg Tablet PO Q6H PRN Pain Rated 7-10 Benzocaine 1 lozenge
[2020-11-17] MEDS: MAGNESIUM SULFATE 3GM/D5W100ML 3 GM/100 ML BAG IVPB (16:27)
[2020-11-17] MEDS: HYDROcodone/acetaminophen (*CRX) 10-325 MG TABLET 1 TAB PO (21:21)
[2020-11-18] VITALS (8 sets, daily range): BP systolic 150–157; BP diastolic 88–95; PULSE 60–79; RESP 16–20; TEMP 36.3–37; O2SAT 97–100
[2020-11-18] MEDS: MELATONIN 5 MG TABLET PO ×2 (00:15→21:13)
[2020-11-18] MEDS: HYDROcodone/acetaminophen (*CRX) 5-325 MG TABLET 1 TAB PO ×5 (04:04→21:11)
[2020-11-18 05:32] LABS: Hematocrit 30.4 % (37.0-47.0); Hemoglobin 9.1 g/dL (12.0-15.0); Mean Corpuscular HGB Conc 29.9 g/dl (32-36); Mean Corpuscular Hemoglobin 25.3 pg (26-34); Mean Corpuscular Volume 84.7 fl (80-100); Mean Platelet Volume 9.8 fl (7.4-10.4); Platelet Count Result 372 k/mm3 (150-375); Red Blood Count 3.59 M/mm3 (4.2-5.4); Red Cell Distribution Width 16.1 % (11.5-14.5); White Blood Count 11.3 K/mm3 (4.5-10.0)
[2020-11-18 06:14] LABS: Anion Gap 4 mmol/L (8-16); Blood Urea Nitrogen 3 mg/dL (7-17); Calcium 8.1 mg/dL (8.4-10.2); Carbon Dioxide 24 mmol/L (22-30); Chloride 106 mmol/L (98-107); Estimated CRCL calculation 137 ml/min; Estimated Glomerular Filt Rate > 60; Glucose 116 mg/dL (65-110); Magnesium 1.7 mg/dL (1.6-2.3); Potassium 4.1 mmol/L (3.4-5.0); Sodium 134 mmol/L (137-145)
[2020-11-18] MEDS: MICAFUNGIN SODIUM 100 MG in SODIUM CHLORIDE 0.9% IV 100 ML IVPB (08:30)
[2020-11-18] MEDS: METOPROLOL TARTRATE 50 MG TAB PO ×2 (08:30→21:07)
[2020-11-18] MEDS: PANTOPRAZOLE 40 MG TABLET PO ×2 (08:30→21:07)
[2020-11-18] MEDS: ENOXAPARIN 40 MG/0.4 ML SYRINGE SUB-Q (08:30)
[2020-11-18] MEDS: MAGNESIUM OXIDE 400 MG TABLET PO (08:30)
[2020-11-18] MEDS: SERTRALINE HCL 50 MG TABLET 150 MG PO (08:30)
[2020-11-18] MEDS: traZODone HCL 50 MG TABLET 100 MG PO (08:30)
--- NOTE | 2020-11-18 10:39 | PM.IMPN ---
Progress Note: A&P Assessment and Plan (1) Perforated duodenal ulcer: Code(s): K26.5 - Chronic or unspecified duodenal ulcer with perforation Status: Acute Assessment and Plan: POD Day #6 Postoperative management per Surgical Service. Surgery advancing diet as needed IV fluids discontinued PO PPI Q12hrs Antibiotics zosyn 3.375 Q6hr, and micafungin 100mg Per surgical service. (2) Depression: Code(s): F32.9 - Major depressive disorder, single episode, unspecified Status: Acute Assessment and Plan: Zoloft 150 mg p.o. daily continue patient's trazodone 100 mg p.o. daily Doing well. (3) Essential hypertension: Code(s): I10 - Essential (primary) hypertension Status: Acute Assessment and Plan: Current blood pressure 150/90. Slightly elevated. Could be from abdominal pain. Continue metoprolol 50 mg p.o. b.i.d. now that she is able to take PO Trend blood pressure Adjust medications as needed (4) Hypokalemia: Code(s): E87.6 - Hypokalemia Status: Acute Assessment and Plan: Most likely due to surgery and advancement of her diet. K 4.1 and Mag 1.7, will give PO Mag-Oxide 400 mg. No potassium supplement needed at this time. trend labs replace as needed. Time Spent With Patient Time with patient: 25 - 35 minutes Subjective Date/time seen: 11/18/20 10:39 Interval history: Patient is a 35-year-old female here for a perforated ulcer repair. Date of Service 11/18/20: Patient reports feeling well today, other than some incisional abdominal pain. She ate some breakfast, but reported some abdominal pain. She states she is still working on eating more for breakfast. The patient denies any fevers, chills, chest pain, shortness of breath, cough, leg swelling, calf pain, or any other symptoms at this time. Review of Systems Review of Systems: All systems reviewed & are unremarkable except as noted in HPI and below Exam Narrative: General: 35-year-old woman laying flat in bed resting. Appears comfortable. In no acute distress. Skin: No jaundice or cyanosis. Good skin turgor. Neck: Full range of motion. Supple. Respiratory: Lungs are clear to auscultation bilaterally. No bony chest wall tenderness. Cardiovascular: The heart has a regular rate and rhythm without murmur. Lower extremities: No lower extremity edema. Distal pulses are easily palpated. No calf tenderness to palpation. Gastrointestinal: surgical dressing noted to midline abdomen without any signs of drainage. The abdomen is soft, nontender and nondistended with active bowel sounds. Psychiatric: Lucid and oriented. Memory intact. Neurologic: No focal deficits. Speech is clear. No facial drooping. Objective Data Vital Signs Vital Signs: Vital Signs - 24 hr 11/17/20 16:31 11/17/20 19:33 11/17/20 20:00 Temperature 97.3 F L 97 F L Pulse Rate 67 66 66 Respiratory Rate 16 17 17 Blood Pressure 150/92 H 148/88 H Pulse Oximetry 97 98 98 11/17/20 20:11 11/17/20 23:41 11/18/20 04:35 Temperature 97.7 F 97.6 F Pulse Rate 66 70 76 Respiratory Rate 17 16 Blood Pressure 129/81 150/90 H Pulse Oximetry 97 97 11/18/20 08:30 11/18/20 10:00 Temperature 98.3 F Pulse Rate 76 66 Respiratory Rate 16 Blood Pressure 152/93 H Pulse Oximetry 98 Intake/Output Intake/Output: Intake & Output 11/15/20 11/16/20 11/17/20 11/18/20 23:59 23:59 23:59 23:59 Intake Total 1300 3330 3630 690 Output Total 800 1225 2800 800 Balance 500 2105 830 -110 Meds/Results Medications: Active Medications Generic Name Dose Route Start Last Admin Trade Name Freq PRN Reason Stop Dose Admin Acetaminophen 500 mg 11/16/20 06:49 Acetaminophen 500 Mg Tablet PO Q6H PRN Mild Pain (1-3) or Fever Hydrocodone Bitart/Acetaminophen 1 tab 11/16/20 06:49 11/18/20 08:30 Hydrocodone/Acetaminophen (*Crx) 5-325 Mg Ta
[2020-11-19 02:00] VITALS: BP 152/94; PULSE 68; RESP 20; TEMP 36.2; O2SAT 98
[2020-11-19] MEDS: HYDROcodone/acetaminophen (*CRX) 5-325 MG TABLET 1 TAB PO ×2 (03:55→07:50)
[2020-11-19 06:00] VITALS: BP 181/86; PULSE 64; RESP 20; TEMP 36; O2SAT 98
[2020-11-19 06:03] LABS: Hematocrit 34.5 % (37.0-47.0); Hemoglobin 10.2 g/dL (12.0-15.0)
[2020-11-19 06:26] LABS: Anion Gap 9 mmol/L (8-16); Blood Urea Nitrogen 4 mg/dL (7-17); Calcium 8.8 mg/dL (8.4-10.2); Carbon Dioxide 22 mmol/L (22-30); Chloride 105 mmol/L (98-107); Estimated CRCL calculation 116 ml/min; Estimated Glomerular Filt Rate > 60; Glucose 162 mg/dL (65-110); Magnesium 1.6 mg/dL (1.6-2.3); Potassium 4.3 mmol/L (3.4-5.0); Sodium 136 mmol/L (137-145)
[2020-11-19] MEDS: MAGNESIUM SULFATE 3GM/D5W100ML 3 GM/100 ML BAG IVPB (07:50)
[2020-11-19] MEDS: ENOXAPARIN 40 MG/0.4 ML SYRINGE SUB-Q (07:51)
[2020-11-19 07:52] VITALS: PULSE 64
[2020-11-19] MEDS: SERTRALINE HCL 50 MG TABLET 150 MG PO (07:52)
[2020-11-19] MEDS: PANTOPRAZOLE 40 MG TABLET PO (07:52)
[2020-11-19] MEDS: MAGNESIUM OXIDE 400 MG TABLET PO (07:52)
[2020-11-19] MEDS: METOPROLOL TARTRATE 50 MG TAB PO (07:52)
--- NOTE | 2020-11-19 08:07 | PM.DS ---
DS: Admitting Diagnosis Admitting Diagnosis perforated viscus with peritonitis and pneumoperitoneum smoker DS: Discharge Diagnosis Discharge Diagnosis (1) Perforated duodenal ulcer: Code(s): K26.5 - Chronic or unspecified duodenal ulcer with perforation Status: Acute (2) Peritonitis (acute) generalized: Code(s): K65.0 - Generalized (acute) peritonitis Status: Resolved (3) Smoker: Code(s): F17.200 - Nicotine dependence, unspecified, uncomplicated Status: Chronic (4) Essential hypertension: Code(s): I10 - Essential (primary) hypertension Status: Chronic (5) Hypokalemia: Code(s): E87.6 - Hypokalemia Status: Resolved DS: Summary Hospital Course Hospital Course: patient is a 35-year-old woman who presented to the emergency room on November 12, 2020 with severe left upper quadrant abdominal pain. She was noted on exam to have an acute abdomen and imaging showed pneumoperitoneum suggestive of a distal gastric perforation. She was taken to surgery on the day of admission by Dr. matthews. The operative finding showed a perforated duodenal bulb ulcer. This was oversewn and omental patch was placed. Postoperatively she was treated with IV Zosyn antibiotics. Her white blood cell count stayed high for a couple of days and micafungin was added. She was also treated with intravenous proton pump inhibitors with twice a day Protonix. The hospitalist service saw her for postoperative medical consultation. She gradually Improved. Her nasogastric tube was able to be removed on postoperative day 4. And she was started on liquids. Her diet was slowly progressed up to regular diet today. She continued on her antimicrobials for a total of 7 days after surgery. Her Protonix was converted from IV to oral Protonix twice a day. She had a low potassium which was supplemented and this resolved. On postop day 7. , the day of discharge, her wound vaibhav were removed and she was able to be discharged in good condition. She will continue on oral Protonix daily and follow up with her primary care physician regarding further treatment of ulcer disease. She will follow up with Dr. matthews in 2 weeks. Status at Discharge Overall status at discharge: patient is progressing back to baseline Time Spent with Patient Time attestation: Total time spent providing and/or coordinating discharge services: Exam GI: Inspection: non-distended, incision ( Dry, healing well) and scaphoid GI Palp: Yes Soft to palpation and Yes Tenderness to palpation present (GI) ( minimal tenderness) Auscultation: normal bowel sounds DS: Data Data Completed and Pending Labs on day of discharge: Labs from last 24 hours 11/19/20 11/19/20 05:54 05:54 Hgb 10.2 L Hct 34.5 L Sodium 136 L Potassium 4.3 Chloride 105 Carbon Dioxide 22 Anion Gap 9 BUN 4 L Creatinine 0.60 L Estim Creat Clear Calc 116 Estimated GFR > 60 Glucose 162 H Calcium 8.8 Magnesium 1.6 Discharge Plan Discharge Attending physician on discharge: Richmond Matthews Consulting providers: Sabi Webb ; Courtney Trevino Discharging Clinician: Richmond Matthews Anticipated Discharge Date/Time: 11/19/20 08:16 Patient Disposition: Home, Self-Care Activity: may shower, no straining and as tolerated Diet: as tolerated and regular Wound Care Instructions: incision open to air Discharge Instructions: Ambulate 3-4 x per day and as tolerated. No lifting over 15-20lbs. May bathe or shower. Stairs are OK. May drive a car in 3 days. Patient Instructions: Antibiotic Form, How to Stop Smoking (DC) Stand Alone Forms: General Discharge Information, Work/School Release IP Follow-up/Referrals: Richmond Matthews MD [Physician] - 2 Weeks ( call Dr. humphreys office for appointment) PHYSICIAN NOT ON STAFF,NONSTAFF [Primary Care Provider] - 2 Weeks ( call and follow up with primary care physician in 2 w
[2020-11-19] MEDS: MICAFUNGIN SODIUM 100 MG in SODIUM CHLORIDE 0.9% IV 100 ML IVPB (09:00)
[2020-11-19 09:45] VITALS: BP 159/92; PULSE 64; RESP 16; TEMP 36.3; O2SAT 98
--- NOTE | 2020-11-19 10:39 | PM.IMPN ---
Progress Note: A&P Assessment and Plan (1) Perforated duodenal ulcer: Code(s): K26.5 - Chronic or unspecified duodenal ulcer with perforation Status: Acute Assessment and Plan: POD Day #7 Postoperative management per Surgical Service. Advancing diet as needed and discharge diet per Surgery PO PPI Q12hrs per Surgery Antibiotics zosyn 3.375 Q6hr, and micafungin 100mg at this time and further abx recommended per Surgery (2) Depression: Code(s): F32.9 - Major depressive disorder, single episode, unspecified Status: Acute Assessment and Plan: Zoloft 150 mg p.o. daily continue patient's trazodone 100 mg p.o. daily Doing well. (3) Essential hypertension: Code(s): I10 - Essential (primary) hypertension Status: Chronic Assessment and Plan: Current blood pressure 159/92. Slightly elevated. Continue metoprolol 50 mg p.o. b.i.d. now that she is able to take PO Recommended patient checking her blood pressure at home twice daily and follow-up with her primary care provider for further evaluation and monitoring. She may need to be placed on a hypertensive medication if she continues her main [place] is an outpatient. In the meantime will tell her about a low-sodium diet, exercise to try and prevent any hypertensive medications. (4) Hypokalemia: Code(s): E87.6 - Hypokalemia Status: Resolved Assessment and Plan: Most likely due to surgery and advancement of her diet. K 4.3 and Mag 1.6, will give IV Mag 3g this morning. Will most likely stay normal as she continues to eat and drink post-op. No need for follow up labs. Can follow up with PCP for further evaluation . Time Spent With Patient Time with patient: 25 - 35 minutes Subjective Date/time seen: 11/19/20 10:39 Interval history: Patient is a 35-year-old female here for a perforated ulcer repair. Date of Service 11/19/20: Patient reports feeling well today, and anxious to be going home today. She ate breakfast, without any issues. The patient denies any fevers, chills, chest pain, shortness of breath, cough, leg swelling, calf pain, N/V/abd pain or any other symptoms at this time. Review of Systems Review of Systems: All systems reviewed & are unremarkable except as noted in HPI and below Exam Narrative: General: 35-year-old woman laying flat in bed watching TV. Appears comfortable. In no acute distress. Skin: No jaundice or cyanosis. Good skin turgor. Neck: Full range of motion. Supple. Respiratory: Lungs are clear to auscultation bilaterally. No bony chest wall tenderness. Cardiovascular: The heart has a regular rate and rhythm without murmur. Lower extremities: No lower extremity edema. Distal pulses are easily palpated. No calf tenderness to palpation. Gastrointestinal: surgical dressing noted to midline abdomen without any signs of drainage. The abdomen is soft, nontender and nondistended with active bowel sounds. Psychiatric: Lucid and oriented. Memory intact. Neurologic: No focal deficits. Speech is clear. No facial drooping. Objective Data Vital Signs Vital Signs: Vital Signs - 24 hr 11/18/20 14:00 11/18/20 18:00 11/18/20 20:00 Temperature 98.4 F 98.6 F Pulse Rate 63 62 79 Respiratory Rate 16 16 20 Blood Pressure 157/95 H 154/88 H Pulse Oximetry 99 100 98 11/18/20 21:07 11/18/20 22:00 11/19/20 02:00 Temperature 97.3 F L 97.1 F L Pulse Rate 60 79 68 Respiratory Rate 20 20 Blood Pressure 152/94 H 152/94 H Pulse Oximetry 98 98 11/19/20 06:00 11/19/20 07:52 11/19/20 09:45 Temperature 96.8 F L 97.4 F L Pulse Rate 64 64 64 Respiratory Rate 20 16 Blood Pressure 181/86 H 159/92 H Pulse Oximetry 98 98 Intake/Output Intake/Output: Intake & Output 11/16/20 11/17/20 11/18/20 11/19/20 23:59 23:59 23:59 23:59 Intake Total 3330 3630 1920 860 Output Total 1225 2800 2500 1000 Balance 2105 830 -580
== END 2020-11-19 11:55 | disposition home or self-care (01) | DRG 220 ==
LOC: ANHED 11-12 00:37 → ANH2MED 11-12 03:54
PROVIDERS: Internal Medicine; Nurse Practitioner; Physician Assistant; Surgery; Admitting Provider Surgery; Emergency Provider General Practice; Visit Provider Surgery
PROC: 0DU907Z Supplement Duodenum with Autologous Tissue Substitute, Open Approach (ICD-10-PCS; CPT 49000; principal; 2020-11-12 10:00)
DX: K26.5 Chronic or unspecified duodenal ulcer with perforation (principal); K65.0 Generalized (acute) peritonitis; F32.9 Major depressive disorder, single episode, unspecified; E87.6 Hypokalemia; I10 Essential (primary) hypertension; I95.81 Postprocedural hypotension; G93.41 Metabolic encephalopathy; F41.9 Anxiety disorder, unspecified; L30.9 Dermatitis, unspecified; F43.10 Post-traumatic stress disorder, unspecified; J45.909 Unspecified asthma, uncomplicated; F17.210 Nicotine dependence, cigarettes, uncomplicated; Z86.718 Personal history of other venous thrombosis and embolism
CPT/HCPCS: 36415; 51701; 74177; 80048; 80053; 81001; 81025; 83605; 83690; 83735; 84132; 85014; 85018; 85025; 85027; 86850; 86900; 86901; 87040; 96361; 96365; 96375; 99285; A9270; C9113; J0131; J0330; J0690; J1170; J1650; J1741; J2248; J2250; J2270; J2405; J2543; J2704; J2710; J3010; J3475; J3480; J7030; J7120; Q9967

== ENCOUNTER 2021-01-07 18:56 | Observation (INO) | payer OTHER, SELFPAY ==
--- NOTE | ~2021-01-07 | XR_ITS ---
EXAMINATION: XR chest 1V portable EXAM DATE: 01/07/2021 21:37 INDICATION: Evaluate for free air. TECHNIQUE: Portable AP frontal chest x-ray was obtained. There is no prior study for comparison. FINDINGS: No evidence of free air under the diaphragm. No free air was demonstrated on CT scan perfor med earlier. The lungs are clear. There are no pleural effusions. The cardiomediastinal silhouette is within normal limits. There is no pneumothorax suspected. The bones and soft tissues are unremar kable. IMPRESSION: No acute cardiopulmonary findings or free intraperitoneal gas. Reviewed, dictated and finalized at location G.
--- NOTE | ~2021-01-07 | XR_ITS ---
EXAMINATION: XR abdomen obstructive series EXAM DATE: 01/07/2021 19:37 INDICATION: eval for free air, Ingested nsaid hx of perf ulcer, . TECHNIQUE: Frontal upright projection of the upper abdomen, frontal projection of the lower abdomen f or interpretation. There is no prior study for comparison. FINDINGS: Suspicion of free intraperitoneal air along the right side of the liver margin on the uprig ht projection. Nonobstructive bowel gas pattern. No suspicious soft tissue calcifications identified. IMPRESSION: Suspicion of free intraperitoneal gas; recommend CT Reviewed, dictated and finalized at location G.
--- NOTE | ~2021-01-07 | CT_ITS ---
EXAMINATION: CT abdomen pelvis wo con EXAM DATE: 01/07/2021 20:30 INDICATION: Abnormal abdomen x-ray, NSAID ingestion. TECHNIQUE: Spiral CT of the abdomen and pelvis was performed without contrast. Axial, coronal and s agittal images of the abdomen and pelvis were reviewed. The dose-length product (DLP) for this exami nation was 336.39 mGy-cm. The exposure was tailored according to patient size (auto mA exposure cont rol), and iterative reconstruction (ASIR) was used as additional dose reduction technique. Comparison is made to prior examination from 11/12/2020. FINDINGS: There is a small portion of the colonic hepatic flexure insinuating between the right liver margin and the right lateral abdominal wall. This likely explains the x-ray abnormality. There is no free intraperitoneal gas. The liver, spleen, adrenal glands and pancreas are unremarkable. Gallbladder is unremarkable. No bi liary obstruction. There is no nephrolithiasis or hydronephrosis. Uterus is unremarkable. The righ t ovary has a 3.5 cm cyst probably the dominant follicle. The bladder is unremarkable. There is no retroperitoneal or pelvic lymphadenopathy. Prior laparotomy. The appendix is normal. The stomach and small bowel are unremarkable. There is expected amount of c olonic stool. No free intraperitoneal gas. The heart is normal in size. There are no pericardial or pleural effusions. The lung bases are unremarkable. There are no osteoblastic or osteolytic les ions identified. IMPRESSION: Colonic interposition accounts for KUB finding. No free air or acute intra-abdominal fi ndings. Reviewed, dictated and finalized at location G. IMPRESSION: Colonic interposition accounts for KUB finding. No free air or ac [place] intra-abdominal findings.
[2021-01-07 18:57] VITALS: BP 130/85; PULSE 100; RESP 16; TEMP 37.2; O2SAT 100
--- NOTE | 2021-01-07 19:05 | ECG_ITS ---
Measurements Intervals [place] Rate: 89 P: 23 VT: 160 QRS: -16 QRSD: 89 T: 30 QT: 367 QTc: 447 Interpretive Statements SINUS RHYTHM CONSIDER INFERIOR INFARCT, AGE INDETERMINATE BASELINE ARTIFACT- II, III, AVR, AVF, V1-V6 ABNORMAL ECG Electronically Signed On 01-08-2021 6:42:45 CDT by Manfred Butler D.O.
--- NOTE | 2021-01-07 19:11 | PC.NURSE ---
During assess pt pulls IV out and climbs out of bed. Pt returned to bed with sitter at bedside.
--- NOTE | 2021-01-07 19:15 | ED.OVERDOSE ---
HPI - Overdose General Chief Complaint: Overdose Stated Complaint: ingestion- si attempt 100 ibuprofen ingested Time Seen by Provider: 01/07/21 18:59 Source: patient and EMS History of Present Illness HPI Narrative: Patient presents after ingesting approximately 100 tablets of ibuprofen. Patient reports sometimes these things happen she does not admit to suicidal ideation. She will not tell us the time of the ingestion or the dose of the ibuprofen. She was found by a friend and the friend called EMS. She denies taking any other substances reports she has had prior overdose attempts in the past. Does not member the last time. Patient just states she does not want to be alive anymore just wants to be left alone so that she can . She reports her heart hurts because she is heartbroken but denies any other focal areas of pain such as abdominal pain. She denies focal numbness or weakness Related Data Home Medications Medication Instructions Recorded Confirmed guanfacine 2 mg PO PRN PRN 11/05/20 11/12/20 sertraline 150 mg PO DAILY 11/05/20 11/12/20 trazodone 100 mg PO DAILY 11/05/20 11/12/20 hydroxyzine HCl 50 mg PO TID PRN 11/12/20 11/12/20 metoprolol tartrate 50 mg PO BID 11/12/20 11/12/20 Allergies Allergy/AdvReac Type Severity Reaction Status Date / Time No Known Allergies Allergy Verified 01/07/21 19:06 Review of Systems Review of Systems: CONSTITUTIONAL: Denies fever, chills, or sweats. EYES: Denies visual changes, redness, or discharge. ENT: Denies rhinorrhea, congestion, sore throat, or otalgia. CARDIOVASCULAR: Denies chest pain, palpitations, or edema. RESPIRATORY: Denies cough or dyspnea. GASTROINTESTINAL: Denies abdominal pain, nausea, vomiting, or diarrhea. GENITOURINARY: Denies dysuria or hematuria. SKIN: Denies rash or itching. MUSCULOSKELETAL: Denies back pain, joint pain, or myalgia. NEUROLOGIC: Denies headache, numbness, dizziness, or weakness. PSYCHIATRIC: Denies anxiety or depression. All systems reviewed & are unremarkable except as noted in HPI and below [facility] Past Medical History Medical History (Updated 01/07/21 @ 21:28 by Chad Roy MD) Anxiety Asthma Bowel obstruction Depression DVT (deep venous thrombosis) Eczema Essential hypertension Perforated duodenal ulcer Post traumatic stress disorder (PTSD) Surgical History Surgical History (Updated 01/07/21 @ 23:12 by Sabi Webb DO) H/O section History of abdominal surgery (11/12/20) Closure perforated duodenal ulcer with omental plasty performed by Dr. Mathew Family History Family History Other Family history non-contributory Social History Social History Smoking packs per day: 1.5 Smoking cigarettes per day: 30.0 Years smoked: 20 Smoking pack-years: 30.00 Smoking status: Current every day smoker Tobacco type: cigarettes Alcohol intake: current Drinks per week: 7 Substance use: current Substance use type: amphetamines Spiritual care concerns: No Exam Narrative: GENERAL: Well-appearing, well-nourished HEAD: Normocephalic, atraumatic. EYES: PERRLA and EOMI. ENT: Nares clear, no rhinorrhea or epistaxis. Mucous membranes moist. NECK: Supple. No masses. No JVD CHEST: Clear to auscultation. No respiratory distress. No wheezes rales or rhonchi HEART: Regular rate and rhythm. No murmur heard. Normal peripheral pulses. ABDOMEN: Soft, nontender, nondistended, normal active bowel sounds. EXTREMITIES: Normal range of motion. No edema. SKIN: Warm, dry, no rash. NEURO: No focal deficits. Alert and oriented x3, no clonus, no nystagmus. PSYCH: Patient is crying and appears upset Course Reevaluation(s) Reevaluation #1: Patient remains clinically stable given the morning of ibuprofen ingestion and presents perforated ulcer patient will be admitted for metabolization with anticipa
--- NOTE | 2021-01-07 19:17 | PC.NURSE ---
charge nurse requested to room. pt ripping iv out and waving her arm around flinging her blood all over room and staff repeatedly saying I don't give a fuck, just let me , take care of someone else who deserves to live, i am a terrible person. Security called to assist at the bedside, we were able to get pt back into her bed, and bleeding from iv stopped at this time. Pt also is stating give me a gun so i can kill myself, the only reason he called 911 was so I didn't in his house.' Patient is verbalizing that she ingested over 100 tablets of ibuprofen and unknown bottles of etoh today.
[2021-01-07 19:21] LABS: Basophils Absolute Auto 0.1 K/mm3 (0.0-0.1); Eosinophils Absolute Auto 0.2 K/mm3 (0-0.3); Eosinophils Percent Auto 2.7 % (0-4.4); Hemoglobin 9.9 g/dL (12.0-15.0); Immature Granulocyte Absolute 0.02 K/mm3 (0.00-0.031); Immature Granulocyte Percent A 0.3 % (0-0.5); Lymphocytes Absolute Auto 2.41 K/mm3 (0.9-3.2); Lymphocytes Percent Auto 33.8 % (18.3-44.2); Mean Corpuscular Hemoglobin 23.2 pg (26-34); Mean Corpuscular Volume 77.3 fl (80-100); Mean Platelet Volume 10.6 fl (7.4-10.4); Monocytes Absolute Auto 0.6 K/mm3 (0.1-0.6); Neutrophils Absolute Auto 3.9 K/mm3 (1.3-6.7); Neutrophils Percent Auto 54.2 % (45.5-73.1); Platelet Count Result 305 k/mm3 (150-375); Red Blood Count 4.27 M/mm3 (4.2-5.4); Red Cell Distribution Width 18.4 % (11.5-14.5); White Blood Count 7.1 K/mm3 (4.5-10.0)
--- NOTE | 2021-01-07 19:25 | PC.NURSE ---
Assumed care of pt at this time, report received from Giselle MOREIRA.
--- NOTE | 2021-01-07 19:40 | PC.NURSE ---
Pt transferred to bedside commode to give urine sample.
[2021-01-07 19:44] LABS: Acetaminophen < 10 ug/mL (10-30); Ethanol 187 mg/dL (<10); Salicylate < 1.0 mg/dL (2-20)
--- NOTE | 2021-01-07 19:45 | PC.NURSE ---
RN spoke with Ree at Poison Control Toxic level of ibuprofen for pt wt would be 19,320mg = to 96 tablets of ibuprofen. S/s to watch for subtoxic-vomiting, drowsy, tendonitis ; toxic - metabolic acidosis, VERENICE. Watch patient for 4-6 hours. IF GI s/s please give PPI. R/O APAP ans ASA levels requested. Case # [id number]
[2021-01-07 20:06] LABS: Add Urine Microscopic? NO; Appearance Urine Clear (Clear); Bilirubin Urine Negative (Negative); Blood Urine Negative (Negative); Color Urine Colorless (Yellow); Glucose Urine UA Negative (Negative); Ketones Urine Negative (Negative); Leukocyte Esterase Ur Negative LEU/UL (Negative); Nitrate Urine Negative (Negative); Protein Urine Negative (Negative); Specific Grav Ur 1.005 (1.001-1.035); Urobilinogen Urine Negative mg/dL (<2.0)
[2021-01-07 20:14] VITALS: BP 121/72; PULSE 93; RESP 19; O2SAT 100
[2021-01-07 20:14] LABS: Amphetamine Screen Urine Positive (Negative); Barbiturate Screen Urine Negative (Negative); Benzodiazepines Screen Urine Negative (Negative); Cannabinoid Screen Urine Negative (Negative); Cocaine Screen Urine Negative (Negative); Methadone Screen Urine Negative (Negative); Opiate Screen Urine Negative (Negative); Phencyclidine Screen Urine Negative (Negative)
--- NOTE | 2021-01-07 20:17 | PC.NURSE ---
Pt tearful, but cooperative at this time. Pt continues to make suicidal remarks. Pt states as soon as they let me out of here, Im going to do it again . Pt states that she is worthless . Refers to herself as a cockroach, stating she just wont .
--- NOTE | 2021-01-07 20:25 | PC.NURSE ---
Pt to CT via stretcher at this time.
[2021-01-07] MEDS: PANTOPRAZOLE SODIUM IV 40 MG VIAL 80 MG IV PUSH (20:38)
[2021-01-07] MEDS: FAMOTIDINE 20 MG/2 ML VIAL IV PUSH (20:38)
[2021-01-07] MEDS: SODIUM CHLORIDE 0.9% IV 1,000 ML 999 ML IV CONT (20:39)
[2021-01-07 20:54] LABS: Alanine Aminotransferase 14 U/L (4-35); Albumin Level 3.8 g/dL (3.5-5.1); Alkaline Phosphatase 81 U/L (38-126); Anion Gap 8 mmol/L (8-16); Aspartate Amino Transferase 24 U/L (14-36); Bilirubin,Total 0.2 mg/dL (0.2-1.3); Blood Urea Nitrogen 12 mg/dL (7-17); Calcium 8.4 mg/dL (8.4-10.2); Carbon Dioxide 24 mmol/L (22-30); Chloride 109 mmol/L (98-107); Estimated CRCL calculation 86 ml/min; Estimated Glomerular Filt Rate > 60; Glucose 68 mg/dL (65-110); Potassium 3.6 mmol/L (3.4-5.0); Sodium 141 mmol/L (137-145)
[2021-01-07] MEDS: LORazepam INJ (*CRX) 2 MG/ML VIAL 0.5 MG IV PUSH (20:54)
[2021-01-07 21:24] LABS: Thyroid Stimulating Hormone 0.327 uIU/mL (0.465-4.680)
--- NOTE | 2021-01-07 21:46 | PC.NURSE ---
COVID PCR test sent to lab for psychiatric placement purposes. Pt is not symptomatic at this time.
--- NOTE | 2021-01-07 22:03 | PC.NURSE ---
Pt sleeping on stretcher at this time, lights dimmed. Sitter at bedside
[2021-01-07 22:09] VITALS: BP 107/67; PULSE 81; RESP 17; O2SAT 98
--- NOTE | 2021-01-07 22:21 | PC.NURSE ---
[facility] poison control updated on pt lab results and behavior currently. Informed that the pt will be admitted to the icu and will call back later for another update.
--- NOTE | 2021-01-07 23:06 | PM.IMHP ---
H&P: HPI History of Present Illness Date/Time: 01/07/21 23:06 Chief Complaint: Ibuprofen overdose Narrative: 35-year-old female with past medical history perforated duodenal ulcer in November 2020, PTSD and depression who presented to the ER after intentional ibuprofen overdose. Source of information is ER records and past medical records. The patient was uncooperative and would not discuss why she came to the ER. According to triage note the patient 100 tablets of 200 mg ibuprofen. She had been drinking alcohol all day as well. When she was asked if she wanted to kill herself she reported to the ER staff to ?do not waste her time on me. ? She also stated just throw me outside. I will tell anyone. Just do not send me to the the [facility] The patient would not tell the ER staff at which time she ingested the ibuprofen. She was found by her friend who called EMS. This is not the patient's 1st suicide attempt by overdose. She denied any actual physical pain to the ER staff but reported that ?her heart hurts? and that she has heart broken. She denies any recent nausea or vomiting. She does not have any abdominal pain on exam. She did have a prior perforated duodenal ulcer associated with NSAID ingestion November 2020 that required omental patch. In the ER the patient had been agitated and had pulled out multiple IVs. He subsequently received Ativan and is now sedated. Review of Systems Review of Systems: ROS unobtainable: Yes other (Unobtainable due to lack of cooperation) PMFSH Past Medical History Medical History Anxiety Asthma Bowel obstruction Depression DVT (deep venous thrombosis) Eczema Essential hypertension Perforated duodenal ulcer Post traumatic stress disorder (PTSD) Surgical History Surgical History H/O section History of abdominal surgery (11/12/20) Closure perforated duodenal ulcer with omental plasty performed by Dr. Mathew Family History Family History Other No pertinent family history Social History Social History Smoking packs per day: 1.5 Smoking cigarettes per day: 30.0 Years smoked: 30 Smoking pack-years: 45.00 Smoking status: Current every day smoker Tobacco type: cigarettes Alcohol intake: current Drinks per week: 7 Substance use: current Substance use type: amphetamines and methamphetamine Spiritual care concerns: No Meds Home Medications and Allergies Home Medications Medication Instructions Recorded Confirmed Type guanfacine 2 mg PO PRN PRN 11/05/20 11/12/20 History sertraline 150 mg PO DAILY 11/05/20 11/12/20 History trazodone 100 mg PO DAILY 11/05/20 11/12/20 History hydroxyzine HCl 50 mg PO TID PRN 11/12/20 11/12/20 History metoprolol tartrate 50 mg PO BID 11/12/20 11/12/20 History hydrocodone-acetaminophen 1 - 2 tablet PO Q6H PRN #20 tablet 11/19/20 Rx pantoprazole [Protonix] 40 mg PO QAM 28 Days #28 tablet 11/19/20 Rx Allergies Allergy/AdvReac Type Severity Reaction Status Date / Time No Known Allergies Allergy Verified 01/07/21 19:06 Vital Signs Vital Signs - 24 hr 01/07/21 18:57 01/07/21 20:14 01/07/21 22:09 Temperature 99.0 F Pulse Rate 100 93 81 Respiratory Rate 16 19 17 Blood Pressure 130/85 121/72 107/67 Pulse Oximetry 100 100 98 Exam Narrative: PHYSICAL EXAM: WEIGHT 64.4 kg BMI 21.6 General: No acute distress, well-developed well-nourished HEENT: Fair dentition, mucous membranes are tacky, no oral pharyngeal erythema, pupils are equal and reactive, positive conjunctival pallor Respiratory: Clear to auscultation bilaterally, no increased work of breathing Cardiovascular: Regular rate, regular rhythm, 2+ bilateral radial pedal pulses Gastrointestinal: Soft, nontender, nondistended, positi
[2021-01-07 23:09] VITALS: BP 108/71; PULSE 81; RESP 15; O2SAT 98
[2021-01-07 23:21] VITALS: BP 107/65; PULSE 76; PULSE 79; RESP 13; TEMP 36.2; O2SAT 98
--- NOTE | 2021-01-07 23:21 | PC.NURSE ---
This patient, Ree Davis, was admitted to Intensive Care Unit-8. Patient/family oriented to hospital policies and general routines including ID bracelet, bed and alarms, visiting hours, pain management, procedures, bathroom and other care routines, personal items, smoking policy, room service/diet, and visiting hours. Information on how to activate the Rapid Response Team has been discussed. Patient/Family are encouraged to report perceived risks to care and to ask questions if they do not understand what they are told or what they should do.
[2021-01-07] MEDS: SODIUM CHLORIDE 0.9% IV 1,000 ML 150 ML IV CONT (23:31)
[2021-01-08] VITALS (7 sets, daily range): BP systolic 123–140; BP diastolic 90–92; PULSE 70–90; RESP 14–16; TEMP 35.7–36.6; O2SAT 100; BMI 19.1
[2021-01-08] MEDS: SODIUM CHLORIDE 0.9% IV 1,000 ML 150 ML IV CONT (05:48)
[2021-01-08] MEDS: ACETAMINOPHEN 325 MG TABLET 650 MG PO ×2 (09:09→12:58)
[2021-01-08] MEDS: NICOTINE (*PBKC) 21 MG PATCH 1 PATCH TRANSDERM (09:10)
[2021-01-08] MEDS: PANTOPRAZOLE SODIUM IV 40 MG VIAL IV PUSH ×2 (09:11→21:17)
--- NOTE | 2021-01-08 09:14 | WPDINTPN ---
Progress Note: A&P Assessment and Plan (1) Overdose: Qualifiers: Encounter type: initial encounter Injury intent: intentional self-harm Qualified Code(s): T50.902A - Poisoning by unspecified drugs, medicaments and biological substances, intentional self-harm, initial encounter Code(s): T50.901A - Poisoning by unspecified drugs, medicaments and biological substances, accidental (unintentional), initial encounter Status: Acute Assessment and Plan: Overdose with ibuprofen attempt for self-harm. Patient has prior perforated duodenal ulcer November 2020 associated with chronic NSAID use. CT the abdomen pelvis demonstrated no evidence of acute process at this time. Patient received Pepcid and Protonix in the ER and have continue PPI. Patient is oval to take p.o. diet ppi will be switched to p.o. Will continue Protonix 40 mg IV q.12 hours. Patient is on suicide precautions with safety consultant at bedside. Will have patient evaluated by crisis if a.m. labs remained stable. Continue IV fluids with change normal saline to half to hyperchloremia Labs are pending for today (2) Suicide ideation: Code(s): R45.851 - Suicidal ideations Status: Acute Assessment and Plan: Suicide precautions. body coverer at bedside. Psychiatry to evaluate patient once medically cleared (3) Essential hypertension: Code(s): I10 - Essential (primary) hypertension Status: Chronic Assessment and Plan: Blood pressures are stable and in normal range at this time Treat p.r.n. (4) Smoker: Code(s): F17.200 - Nicotine dependence, unspecified, uncomplicated Status: Chronic Assessment and Plan: Patient was counseled to quit smoking and quit drugs Nicotine patch was ordered on patient's request at the time of admission (5) Depression: Code(s): F32.9 - Major depressive disorder, single episode, unspecified Status: Acute Assessment and Plan: Currently not taking any medication. Will defer treatment to Psychiatry (6) Abdominal pain: Code(s): R10.9 - Unspecified abdominal pain Status: Acute Assessment and Plan: Could be secondary to gastritis or peptic ulcer disease CT was negative Continue PPI Check lipase If persists or worsens will consider GI evaluation (7) Anxiety: Code(s): F41.9 - Anxiety disorder, unspecified Status: Acute Assessment and Plan: Resume p.r.n. hydroxyzine p.o. Additional Plan DVT prophylaxis -patient is ambulating Stress ulcer prophylaxis -patient is on PPI Nutrition -regular diet Code Status - Full Code Subjective Date/time seen: 01/08/21 09:14 Patient states she feels better this morning has abdominal pain at the site of incision of her surgery. Pain is 4 to 5/10, intermittent, sharp and does not radiate anywhere else. No aggravating or relieving factors. She states a has different types of pain some are at the incision is somewhat deep and this pain started yesterday. She denies any nausea vomiting diarrhea constipation. No blood in her stool. She states she is hungry and would like to eat food. Admits to taking 100 pills of 200 mg ibuprofen and drinking some alcohol with the. She states she is not compliant with her medications for depression and has not been taking any recently. She is requesting hydroxyzine for anxiety. Denies any other complaints. All systems were reviewed and were negative. She admits to drinking once a week, smokes 1 pack per day, smokes meth. She is unemployed Review of Systems Review of Systems: All systems reviewed & are unremarkable except as noted in HPI and below (Subjective) Exam Narrative: General: Pt is alert awake and in NAD Lungs/Chest: Trachea central Clear BS B/L, No crackles or wheezing. Cardiac: RRR. Normal S1 S2. No murmurs Circulation: Pedal pulses are intact and symmetrical. Abdomen: Normal bowel sounds.. Soft. ND. Sc
[2021-01-08 09:23] LABS: Basophils Absolute Auto 0.1 K/mm3 (0.0-0.1); Basophils Percent Auto 1.8 % (0.2-1.2); Eosinophils Absolute Auto 0.1 K/mm3 (0-0.3); Hematocrit 35.4 % (37.0-47.0); Hemoglobin 10.5 g/dL (12.0-15.0); Immature Granulocyte Absolute 0.02 K/mm3 (0.00-0.031); Immature Granulocyte Percent A 0.5 % (0-0.5); Lymphocytes Absolute Auto 1.61 K/mm3 (0.9-3.2); Lymphocytes Percent Auto 40.3 % (18.3-44.2); Mean Corpuscular HGB Conc 29.7 g/dl (32-36); Mean Corpuscular Hemoglobin 23.8 pg (26-34); Mean Corpuscular Volume 80.3 fl (80-100); Mean Platelet Volume 10.6 fl (7.4-10.4); Monocytes Absolute Auto 0.4 K/mm3 (0.1-0.6); Monocytes Percent Auto 9.5 % (2.6-8.5); Neutrophils Absolute Auto 1.8 K/mm3 (1.3-6.7); Neutrophils Percent Auto 44.9 % (45.5-73.1); Platelet Count Result 242 k/mm3 (150-375); Red Blood Count 4.41 M/mm3 (4.2-5.4)
[2021-01-08 09:34] LABS: Alanine Aminotransferase 13 U/L (4-35); Albumin Level 3.5 g/dL (3.5-5.1); Alkaline Phosphatase 64 U/L (38-126); Anion Gap 4 mmol/L (8-16); Aspartate Amino Transferase 24 U/L (14-36); Bilirubin,Total < 0.1 mg/dL (0.2-1.3); Blood Urea Nitrogen 9 mg/dL (7-17); Calcium 7.8 mg/dL (8.4-10.2); Carbon Dioxide 27 mmol/L (22-30); Chloride 110 mmol/L (98-107); Estimated CRCL calculation 90 ml/min; Estimated Glomerular Filt Rate > 60; Glucose 81 mg/dL (65-110); Sodium 141 mmol/L (137-145)
[2021-01-08] MEDS: SODIUM CHLORIDE 0.45% 1,000 ML 150 ML IV CONT ×2 (09:45→17:03)
[2021-01-08 09:54] LABS: Lipase 178 U/L (23-300)
[2021-01-08] MEDS: hydrOXYzine HCL 25 MG TABLET PO (10:00)
[2021-01-08 12:51] LABS: Eosinophils Absolute Manual 0.08 K/mm3 (0.02-0.5); Eosinophils Percent Manual 2 % (0-4); Lymphocytes Absolute Manual 1.72 K/mm3 (1.1-4.5); Monocytes Absolute Manual 0.24 K/mm3 (0.1-0.90); Monocytes Percent Manual 6 % (3-9); Neutrophils Percent Manual 49 % (46-73); Total Cells Counted 100
[2021-01-08 12:52] LABS: Hypochromasia 2+ (NORMAL); Platelet Estimate Adequate (Adequate); Stomatocytes 2+ (NORMAL)
[2021-01-08] MEDS: hydrOXYzine HCL 25 MG TABLET 50 MG PO (12:58)
[2021-01-08] MEDS: ACETAMINOPHEN/CODEINE (*CRX) 300/30 MG TABLET 1 TAB PO ×2 (17:01→21:15)
[2021-01-08 17:41] LABS: SARS-CoV-2 RNA PCR Positive
[2021-01-09] MEDS: SODIUM CHLORIDE 0.45% 1,000 ML 150 ML IV CONT (01:13)
[2021-01-09] MEDS: hydrOXYzine HCL 25 MG TABLET 50 MG PO ×2 (01:14→09:17)
[2021-01-09] MEDS: ACETAMINOPHEN/CODEINE (*CRX) 300/30 MG TABLET 1 TAB PO ×4 (01:16→13:47)
[2021-01-09 05:00] VITALS: BP 139/96; PULSE 65; RESP 16; TEMP 36.2; O2SAT 100
[2021-01-09 07:12] LABS: Hematocrit 29.9 % (37.0-47.0); Mean Corpuscular HGB Conc 30.1 g/dl (32-36); Mean Corpuscular Hemoglobin 23.6 pg (26-34); Mean Corpuscular Volume 78.3 fl (80-100); Platelet Count Result 217 k/mm3 (150-375); Red Blood Count 3.82 M/mm3 (4.2-5.4); Red Cell Distribution Width 18.4 % (11.5-14.5); White Blood Count 6.1 K/mm3 (4.5-10.0)
[2021-01-09 07:36] LABS: Alanine Aminotransferase 11 U/L (4-35); Albumin Level 2.6 g/dL (3.5-5.1); Alkaline Phosphatase 50 U/L (38-126); Anion Gap 5 mmol/L (8-16); Aspartate Amino Transferase 16 U/L (14-36); Bilirubin,Total 0.1 mg/dL (0.2-1.3); Blood Urea Nitrogen 6 mg/dL (7-17); Calcium 7.5 mg/dL (8.4-10.2); Carbon Dioxide 24 mmol/L (22-30); Chloride 111 mmol/L (98-107); Estimated CRCL calculation 107 ml/min; Estimated Glomerular Filt Rate > 60; Glucose 106 mg/dL (65-110); Magnesium 1.4 mg/dL (1.6-2.3); Potassium 3.5 mmol/L (3.4-5.0); Sodium 140 mmol/L (137-145)
[2021-01-09 08:00] VITALS: BP 145/101; PULSE 70; RESP 12; TEMP 36.2; O2SAT 100
[2021-01-09] MEDS: PANTOPRAZOLE SODIUM IV 40 MG VIAL IV PUSH (09:18)
--- NOTE | 2021-01-09 11:08 | PM.IMPN ---
Progress Note: A&P Additional Plan START OF DOCTOR [facility]?S PROGRESS NOTE Subjective: Aside from minor periumbilical pain, the patient endorses no complaints at this time. She asked about being prior scribe narcotics upon discharge. She denies auditory and visual hallucinations at this time. She denies any delusions. She indicates that she took ibuprofen and attempt to kill herself but she would not provide any history as to why. I have attempted to explained to the patient her current medical condition plan of care however she was dismissive when she was notified that I would not be prescribing narcotics upon discharge Objective: General: -Alert -No acute distress -No dyspnea -No tachypnea Heart: -Regular rate -Regular rhythm -No murmurs -No gallops -No rubs Lungs: -No wheeze -No rhonchi -No rales Abdomen: -Normal bowel sounds in all four quadrants -No rebound -No guarding -No tenderness Extremities: -2/4 pulse in all four extremities -No clubbing -No cyanosis -No edema Additional Details / Additional Findings / Exceptions / Miscellaneous: Pertinent Laboratory Results / Pertinent Radiology Results / Pertinent Diagnostic Results / Pertinent Vital Signs: Blood pressure 145/101, pulse 70, hemoglobin 9, MCV 78.3, magnesium 1.4 Assessment / Plan: Suicide attempt with ibuprofen overdose. In continue monitoring LFTs periodically with CMP History of previous suicide attempt COVID-19 positive. Asymptomatic PTSD Depression Anxiety Asthma History of DVT Smoker. Patient counseled regarding smoking cessation. Nicotine patch 21 mg daily Hypertension Perforated duodenal ulcer as of November 2020. Protonix 40 mg IV q.12 hours Hyperthyroidism. Recheck TSH, free T4-3 weeks post discharge Microcytic anemia. Will monitor hemoglobin intermittently. Check serum ferritin, iron panel, fecal occult blood Hypomagnesemia. Monitor magnesium levels intermittently and supplement as necessary DVT prophylaxis. Bilateral CT Disposition: Pending evaluation by psychiatry/behavioral Health, the patient may potentially be a candidate for discharge on this day of January 09, 2021 END OF DOCTOR [facility]?S PROGRESS NOTE Subjective Date/time seen: 01/09/21 11:08 Objective Data Vital Signs Vital Signs: Vital Signs - 24 hr 01/08/21 12:00 01/08/21 15:44 01/08/21 19:53 Temperature 96.7 F L 97.8 F Pulse Rate 90 86 70 Respiratory Rate 15 14 Blood Pressure 124/90 140/92 H Pulse Oximetry 100 100 01/08/21 22:37 01/09/21 05:00 01/09/21 08:00 Temperature 97.2 F L 97.1 F L Pulse Rate 65 70 Respiratory Rate 16 12 Blood Pressure 139/96 H 145/101 H Pulse Oximetry 100 100 100 Intake/Output Intake/Output: Intake & Output 01/06/21 01/07/21 01/08/21 01/09/21 23:59 23:59 23:59 23:59 Intake Total 1000 4177.8 1246.5 Output Total 1999 3350 Balance 1000 2177.8 -2103.5 Meds/Results Medications: Active Medications Generic Name Dose Route Start Last Admin Trade Name Freq PRN Reason Stop Dose Admin Acetaminophen 650 mg 01/07/21 23:09 01/08/21 12:58 Acetaminophen 325 Mg Tablet PO 650 mg Q4H PRN Administration Mild Pain (1-3) or Fever Acetaminophen/Codeine Phosphate 1 tab 01/08/21 15:51 01/09/21 09:14 Acetaminophen/Codeine (*Crx) 300/30 Mg Tablet PO 1 tab Q4H PRN Administration Pain Rated 4-6 Al Hydrox/Mg Hydrox/Simethicone 30 ml 01/08/21 09:20 Mag Hydrox/Al Hydrox/Simeth 30 Ml Udc PO Q6H PRN Indigestion Hydroxyzine HCl 50 mg 01/08/21 12:44 01/09/21 09:17 Hydroxyzine Hcl 25 Mg Tablet PO 50 mg TID PRN Administration Anxiety Sodium Chloride 1,000 mls @ 150 mls/hr 01/08/21 09:20 01/09/21 01:13 Sodium Chloride 0.45% IV CONT 150 mls/hr .Q6H40M KIRAN Administration Magnesium Sulfate 2 gm in 50 mls @ 50 mls/hr 01/09/21 10:56 Magnesium Sulf 2 Gm/Water 50ml IVPB 01/09/21 11:55
[2021-01-09] MEDS: NICOTINE (*PBKC) 21 MG PATCH 1 PATCH TRANSDERM (11:47)
[2021-01-09] MEDS: MAGNESIUM SULF 2 GM/WATER 50ML 2 GM/50 ML BAG IVPB (11:52)
[2021-01-09 12:01] LABS: Iron 17 ug/dL (37-170)
[2021-01-09 12:10] LABS: Percent Iron Saturation 6 % (20-50)
[2021-01-09 12:35] LABS: Ferritin 9.75 ng/mL (6.24-137)
--- NOTE | 2021-01-09 14:31 | PM.DS ---
DS: Admitting Diagnosis Discharge Date 2:33 p.m. on January 10, 2020 Admitting Diagnosis Suicide attempt via ibuprofen overdose DS: Summary Hospital Course Hospital Course: See discharge summary below Time Spent with Patient Time attestation: Total time spent providing and/or coordinating discharge services: START OF [facility]?S DISCHARGE SUMMARY Date of Admission: January 08, 2020 Date of Discharge: 2:31 p.m. on January 09, 2021 Primary Diagnosis: Suicide attempt with ibuprofen overdose Secondary Diagnosis: Prior history of suicide attempt COVID-19 positive, asymptomatic PTSD Depression Anxiety Asthma History of DVT Smoker paragraph hypertension paragraph recent perforated duodenal ulcer (November 2020) Hyperthyroidism Iron deficiency anemia/microcytic anemia Hypo magnesemia Methamphetamine abuse Consultations: Crisis Disposition: Patient will be advised follow-up with psychiatry/crisis as directed for her history of depression, PTSD, anxiety The patient will require referral for substance abuse given her history of methamphetamine abuse The patient is advised follow-up with her primary care physician 2 weeks post discharge for post hospitalization evaluation. The patient will need to have a recheck of her TSH, free T4 for diagnosis of hyperthyroidism Discharge Medications: Guanfacine 2 mg p.o. p.r.n. anxiety: Frequency undefined Trazodone 150 mg p.o. q.h.s. Zoloft 150 mg p.o. daily Metoprolol 50 mg p.o. q.12 hours Hydroxyzine 50 mg p.o. t.i.d. p.r.n. pruritus Protonix 40 mg p.o. b.i.d. Ferrous sulfate 325 mg p.o. b.i.d. Vitamin-C 500 mg p.o. daily END OF DOCTOR [facility]?S DISCHARGE SUMMARY DS: Data Data Completed and Pending Labs on day of discharge: Labs from last 24 hours 01/09/21 01/09/21 01/09/21 11:26 07:06 07:06 WBC 6.1 RBC 3.82 L Hgb 9.0 L Hct 29.9 L MCV 78.3 L MCH 23.6 L MCHC 30.1 L RDW 18.4 H Plt Count 217 MPV 10.0 Sodium 140 Potassium 3.5 Chloride 111 H Carbon Dioxide 24 Anion Gap 5 L BUN 6 L Creatinine 0.60 L Estim Creat Clear Calc 107 Estimated GFR > 60 Glucose 106 Calcium 7.5 L Magnesium 1.4 L Iron 17 L TIBC 298 % Saturation 6 L Ferritin 9.75 Total Bilirubin 0.1 L AST 16 ALT 11 Alkaline Phosphatase 50 Total Protein 5.0 L Albumin 2.6 L SARS-CoV-2 RNA (RT-PCR) 01/07/21 21:45 WBC RBC Hgb Hct MCV MCH MCHC RDW Plt Count MPV Sodium Potassium Chloride Carbon Dioxide Anion Gap BUN Creatinine Estim Creat Clear Calc Estimated GFR Glucose Calcium Magnesium Iron TIBC % Saturation Ferritin Total Bilirubin AST ALT Alkaline Phosphatase Total Protein Albumin SARS-CoV-2 RNA (RT-PCR) Positive A Discharge Plan Discharge Discharging Clinician: Dr. Lamar Patient Disposition: Home, Self-Care Activity: as tolerated Diet: low sodium Discharge Instructions: The patient is advised follow-up with psychiatry/behavioral health as directed Patient Instructions: Antibiotic Form, How to Stop Smoking (DC) Stand Alone Forms: General Discharge Information Follow-up/Referrals: Tom Lamar DO [Physician] - Discharge Medications: New pantoprazole [Protonix] 40 mg tablet,delayed release (DR/EC) 40 mg PO BID 30 Days Qty: 60 RF: 0 ascorbic acid (vitamin C) 500 mg tablet 500 mg PO DAILY Qty: 30 RF: 0 ferrous sulfate 325 mg (65 mg iron) tablet 325 mg PO BID Qty: 60 RF: 0 Continued guanfacine 1 mg tablet 2 mg PO PRN PRN (Reason: Anxiety) RF: 0 sertraline 100 mg tablet 150 mg PO DAILY Qty: 45 RF: 0 hydroxyzine HCl 50 mg tablet 50 mg PO TID PRN (Reason: Itching) Qty: 30 RF: 0 trazodone 100 mg tablet 150 mg PO HS Qty: 45 RF: 0 metoprolol tartrate 50 mg tablet 50 mg PO Q12H Qty: 60 RF:
== END 2021-01-09 15:00 | disposition home or self-care (01) ==
LOC: ANHED 21:28 → ANHICU 01-08 00:20
PROVIDERS: Internal Medicine; Admitting Provider Internal Medicine; Emergency Provider Emergency Medicine; Visit Provider Internal Medicine
DX: T39.312A Poisoning by propionic acid derivatives, intentional self-harm, initial encounter (principal); U07.1 COVID-19; R45.851 Suicidal ideations; F15.10 Other stimulant abuse, uncomplicated; F43.10 Post-traumatic stress disorder, unspecified; F41.8 Other specified anxiety disorders; F17.210 Nicotine dependence, cigarettes, uncomplicated; J45.909 Unspecified asthma, uncomplicated; D50.9 Iron deficiency anemia, unspecified; E05.90 Thyrotoxicosis, unspecified without thyrotoxic crisis or storm; E83.42 Hypomagnesemia; I10 Essential (primary) hypertension; Z86.718 Personal history of other venous thrombosis and embolism
CPT/HCPCS: 36415; 71045; 74018; 74019; 74176; 80053; 80307; 81003; 81025; 82728; 83540; 83550; 83690; 83735; 84443; 85025; 85027; 93005; 96361; 96365; 96366; 96374; 96375; 96376; 99285; A9270; C9113; C9803; G0378; G0379; J2060; J3475; J7030; U0003; U0005

== ENCOUNTER 2021-01-21 19:49 | Emergency (ER) | payer OTHER, SELFPAY ==
[2021-01-21 20:24] VITALS: BP 151/111; PULSE 87; RESP 16; TEMP 36.9; O2SAT 100
--- NOTE | 2021-01-21 21:41 | ED.PSYCH ---
HPI - Psych General Chief Complaint: Headache Stated Complaint: bodyaches Time Seen by Provider: 01/21/21 21:04 Source: patient Mode of arrival: ambulatory Limitations: no limitations History of Present Illness HPI Narrative: Patient is a 35-year-old female complaining of her whole body hurting. Patient also admits to having suicidal thoughts which she claims started when I was born . Patient denies any homicidal ideations. Patient denies any visual or auditory hallucinations. Related Data Home Medications Medication Instructions Recorded Confirmed guanfacine 2 mg PO PRN PRN 11/05/20 01/08/21 Allergies Allergy/AdvReac Type Severity Reaction Status Date / Time No Known Allergies Allergy Verified 01/21/21 20:31 Review of Systems Review of Systems: All systems reviewed & are unremarkable except as noted in HPI and below Constitutional: Constitutional: Denies chills, Denies excessive sweating, Denies fatigue, Denies fever(s), Denies headache(s), Denies lethargy, Denies malaise, Denies weakness and Denies weight loss Eyes: Eyes: Denies blurry vision, Denies change in vision and Denies loss of vision ENT: Denies dizziness, Denies ear discharge, Denies headache(s), Denies lip swelling, Denies epistaxis, Denies nasal congestion, Denies neck pain, Denies throat swelling and Denies tongue swelling Cardiovascular: Cardiovascular: Denies chest pain, Denies chest pain at rest, Denies chest pain with activity, Denies diaphoresis, Denies rapid heart rate, Denies edema, Denies irregular heart rhythm, Denies lightheadedness, Denies palpitations, Denies dyspnea and Denies dyspnea on exertion Respiratory: Respiratory: Denies chest congestion, Denies cough, Denies hemoptysis, Denies dyspnea and Denies dyspnea on exertion Gastrointestinal: Gastrointestinal: Denies abdominal pain, Denies melena, Denies hematochezia, Denies diarrhea, Denies nausea, Denies vomiting and Denies hematemesis Musculoskeletal: Musculoskeletal: Denies abnormal gait, Denies deformity, Denies joint swelling, Denies limited range of motion, Denies neck pain and Denies numbness Neurologic: Denies Abnormal speech present, Denies abnormal gait, Denies confusion, Denies dizziness, Denies headache(s), Denies focal weakness, Denies loss of vision, Denies numbness, Denies Other visual disturbances, Denies Sensory deficit (Neuro) and Denies weakness Psychiatric: Psychiatric: Denies confusion, Denies depression, Denies auditory hallucinations and Denies homicidal ideation Endocrine: Endocrine: Denies cold intolerance, Denies excessive sweating, Denies fatigue, Denies heat intolerance and Denies palpitations Hematologic/Lymphatic: Hematologic/Lymphatic: Denies easy bleeding and Denies easy bruising Allergic/Immunologic: Allergic/Immunologic: Denies lip swelling, Denies throat swelling and Denies tongue swelling PMFSH Past Medical History Medical History Anxiety Asthma Bowel obstruction Depression DVT (deep venous thrombosis) Eczema Essential hypertension Perforated duodenal ulcer Post traumatic stress disorder (PTSD) Surgical History Surgical History H/O section History of abdominal surgery (11/12/20) Closure perforated duodenal ulcer with omental plasty performed by Dr. Mathew Family History Family History Other No pertinent family history Social History Social History Smoking packs per day: 1.5 Smoking cigarettes per day: 30.0 Years smoked: 30 Smoking pack-years: 45.00 Smoking status: Current every day smoker Tobacco type: cigarettes Alcohol intake: current Drinks per week: 7 Substance use: current Substance use type: amphetamines and methamphetamine Spiritual care concerns: No Exam Const: General:
[2021-01-21 22:44] LABS: Basophils Absolute Auto 0.1 K/mm3 (0.0-0.1); Basophils Percent Auto 0.8 % (0.2-1.2); Eosinophils Absolute Auto 0.1 K/mm3 (0-0.3); Eosinophils Percent Auto 0.7 % (0-4.4); Hematocrit 35.1 % (37.0-47.0); Hemoglobin 10.7 g/dL (12.0-15.0); Immature Granulocyte Absolute 0.07 K/mm3 (0.00-0.031); Immature Granulocyte Percent A 0.5 % (0-0.5); Lymphocytes Absolute Auto 3.32 K/mm3 (0.9-3.2); Lymphocytes Percent Auto 23.9 % (18.3-44.2); Mean Corpuscular HGB Conc 30.5 g/dl (32-36); Mean Corpuscular Hemoglobin 24.5 pg (26-34); Mean Corpuscular Volume 80.3 fl (80-100); Mean Platelet Volume 10.8 fl (7.4-10.4); Monocytes Absolute Auto 1.3 K/mm3 (0.1-0.6); Monocytes Percent Auto 9.3 % (2.6-8.5); Neutrophils Percent Auto 64.8 % (45.5-73.1); Platelet Count Result 304 k/mm3 (150-375); Red Blood Count 4.37 M/mm3 (4.2-5.4); Red Cell Distribution Width 21.8 % (11.5-14.5); White Blood Count 13.9 K/mm3 (4.5-10.0)
[2021-01-21] MEDS: ACETAMINOPHEN 325 MG TABLET 650 MG PO (22:46)
[2021-01-21 22:48] LABS: Acetaminophen < 10 ug/mL (10-30); Salicylate < 1.0 mg/dL (2-20)
[2021-01-21 22:49] LABS: Add Urine Microscopic? YES; Appearance Urine Cloudy (Clear); Bilirubin Urine Negative (Negative); Blood Urine Negative (Negative); Color Urine Yellow (Yellow); Glucose Urine UA Negative (Negative); Ketones Urine Negative (Negative); Leukocyte Esterase Ur Trace LEU/UL (Negative); Nitrate Urine Negative (Negative); Protein Urine Negative (Negative); Specific Grav Ur 1.016 (1.001-1.035); Squamous Epithelial Cell Urine Rare /hpf (Few); Urobilinogen Urine Negative mg/dL (<2.0); WBC Urine 0-3 /hpf
[2021-01-21 22:56] LABS: Ethanol < 10 mg/dL (<10)
[2021-01-21 22:58] LABS: Amphetamine Screen Urine Negative (Negative); Barbiturate Screen Urine Negative (Negative); Benzodiazepines Screen Urine Negative (Negative); Cannabinoid Screen Urine Negative (Negative); Cocaine Screen Urine Negative (Negative); Methadone Screen Urine Negative (Negative); Opiate Screen Urine Negative (Negative); Phencyclidine Screen Urine Negative (Negative)
[2021-01-21 23:05] LABS: Alanine Aminotransferase 18 U/L (4-35); Albumin Level 4.2 g/dL (3.5-5.1); Alkaline Phosphatase 86 U/L (38-126); Anion Gap 7 mmol/L (8-16); Aspartate Amino Transferase 27 U/L (14-36); Bilirubin,Total 0.1 mg/dL (0.2-1.3); Blood Urea Nitrogen 12 mg/dL (7-17); Calcium 9.5 mg/dL (8.4-10.2); Carbon Dioxide 30 mmol/L (22-30); Chloride 101 mmol/L (98-107); Estimated CRCL calculation 90 ml/min; Estimated Glomerular Filt Rate > 60; Glucose 99 mg/dL (65-110); Potassium 3.6 mmol/L (3.4-5.0); Sodium 138 mmol/L (137-145)
--- NOTE | 2021-01-21 23:15 | PC.NURSE ---
crisis notified to come evaluate patient.
--- NOTE | 2021-01-22 00:28 | PC.NURSE ---
pt asking for more pain medicine. told Dr. Wade pt was requesting more pain medicine and he states to give pt 600mg of motrin and that is all that the pt is getting. when going to the room to give pt the Motrin pt starts yelling at this RN stating that she needs something stronger than Motrin. EDP aware of the situation. pt calling this RN a Satin and screaming this is bullshit
[2021-01-22] MEDS: diphenhydrAMINE HCl INJ 50 MG/ML VIAL 25 MG IM (00:41)
[2021-01-22] MEDS: HALOPERIDOL LACTATE 5 MG/ML VIAL IM (00:41)
[2021-01-22 01:18] LABS: EDCOVIDSCREEN Negative (Negative)
--- NOTE | 2021-01-22 03:16 | PC.NURSE ---
Addendum entered by Nancy Pritchett 01/22/21 04:16: Called for status...ETA approximately 20 minutes. Original Note: Called [facility] for BLS transport to [facility] (trip # [id number])...ETA approximately [id number]
--- NOTE | 2021-01-22 03:23 | PC.NURSE ---
pt has been accepted to [facility]. report given to HAR[facility] Live. [facility] ems eta is [id number].
[2021-01-22 03:36] VITALS: BP 128/88; PULSE 63; RESP 16; O2SAT 99
== END 2021-01-22 04:55 ==
LOC: ANHED 21:09
PROVIDERS: Emergency Provider Emergency Medicine
DX: R45.851 Suicidal ideations (principal); F30.9 Manic episode, unspecified; F41.9 Anxiety disorder, unspecified; F43.10 Post-traumatic stress disorder, unspecified; I10 Essential (primary) hypertension; J45.909 Unspecified asthma, uncomplicated; Z86.718 Personal history of other venous thrombosis and embolism; F17.210 Nicotine dependence, cigarettes, uncomplicated; Z20.822 Contact with and (suspected) exposure to COVID-19
CPT/HCPCS: 36415; 80053; 80307; 81001; 81025; 84443; 85025; 87426; 96372; 99285; A9270; C9803; J1200; J1630

== ENCOUNTER 2021-08-31 11:59 | Emergency (ER) | payer OTHER, SELFPAY ==
[2021-08-31 12:06] VITALS: BP 141/96; PULSE 102; RESP 18; TEMP 36.6; O2SAT 98
--- NOTE | 2021-08-31 12:21 | ED.ALLEREA ---
HPI - Allergic Reaction General Chief complaint: Allergic Reaction Stated complaint: allergic reaction, +etoh Time Seen by Provider: 08/31/21 12:15 Source: patient Mode of arrival: EMS Limitations: no limitations History of Present Illness HPI narrative: Patient presents with itching skin rash on the face and upper chest and back started yesterday. History of poison eleanor allergy. She denies working outdoors yesterday, or any new event in her life. She denies any difficulty breathing or swallowing. Related Data Home Medications Medication Instructions Recorded Confirmed guanfacine 1 mg tablet 2 mg PO PRN PRN Anxiety 11/05/20 01/08/21 Allergies Allergy/AdvReac Type Severity Reaction Status Date / Time No Known Allergies Allergy Verified 08/31/21 12:16 Review of Systems Review of Systems: All systems reviewed & are unremarkable except as noted in HPI and below PMFSH Past Medical History Medical History Anxiety Asthma Bowel obstruction Depression DVT (deep venous thrombosis) Eczema Essential hypertension Perforated duodenal ulcer Post traumatic stress disorder (PTSD) Surgical History Surgical History H/O section History of abdominal surgery (11/12/20) Closure perforated duodenal ulcer with omental plasty performed by Dr. Mathew Family History Family History Other No pertinent family history Social History Social History Smoking packs per day: 1.5 Smoking cigarettes per day: 30.0 Years smoked: 30 Smoking pack-years: 45.00 Smoking status: Current every day smoker Tobacco type: cigarettes Alcohol intake: current Drinks per week: 7 Substance use: current Substance use type: amphetamines and methamphetamine Spiritual care concerns: No Exam Narrative: General appearance: Well-developed, well-nourished Skin: Skin rash Head: Normocephalic, nontraumatic Eyes: Clear conjunctiva ENT: Oropharynx normal, ears normal, nose normal Neck: Supple, nontender Abdomen: Soft, nontender, no organomegaly, quiet bowel sounds Vascular: Normal peripheral pulses, normal capillary refill. Musculoskeletal: Normal range of motion, nontender back Neurologic: Alert and oriented ?3, Skin: Other: Urticarial rash, blisters on the face, upper and the front chest. Course Course Emergency Course: Improving Patient skin rash looks like contact dermatitis high likely poison eleanor/poison oak. Patient received epinephrine, prednisone, Pepcid prior to discharge. Vital Signs Vital signs: Vital Signs Temperature 36.6 C 08/31/21 12:06 Pulse Rate 102 H 08/31/21 12:06 Respiratory Rate 18 08/31/21 12:06 Blood Pressure 141/96 H 08/31/21 12:06 Pulse Oximetry 98 08/31/21 12:06 Oxygen Delivery Room Air 08/31/21 12:06 Temperature 36.6 C 08/31/21 12:06 Pulse Rate 93 08/31/21 12:57 Respiratory Rate 20 08/31/21 12:57 Blood Pressure 141/96 H 08/31/21 12:57 Pulse Oximetry 100 08/31/21 12:57 Oxygen Delivery Room Air 08/31/21 12:06 Critical Care Time Critical Care Time Critical Care Time: No Discharge Plan Discharge Clinical Impression: Acute dermatitis Patient Disposition: Home, Self-Care Condition: Stable Instructions: Antibiotic Form, Acute Rash (ED) Additional Instructions: Return if symptoms are worsening , call your family physician for appointment, take Tylenol as as needed for aches and pain, continue home medications. Prescriptions: New prednisone 2
[2021-08-31] MEDS: predniSONE 20 MG TABLET 60 MG PO (12:51)
[2021-08-31] MEDS: FAMOTIDINE 20 MG TABLET PO (12:51)
[2021-08-31] MEDS: LORATADINE 10 MG TABLET PO (12:51)
[2021-08-31] MEDS: EPINEPHrine HCL INJ 1 MG/ML AMPUL 0.3 MG IM (12:55)
[2021-08-31 12:57] VITALS: BP 141/96; PULSE 93; RESP 20; O2SAT 100
[2021-08-31 13:29] VITALS: BP 117/80; PULSE 79; RESP 18; O2SAT 100
[2021-08-31 14:18] VITALS: BP 116/77; PULSE 90; RESP 18; O2SAT 97
== END 2021-08-31 14:24 | disposition home or self-care (01) ==
PROVIDERS: Emergency Provider Emergency Medicine
DX: L30.9 Dermatitis, unspecified (principal); I10 Essential (primary) hypertension; F41.9 Anxiety disorder, unspecified; F32.9 Major depressive disorder, single episode, unspecified; F17.210 Nicotine dependence, cigarettes, uncomplicated; Z86.718 Personal history of other venous thrombosis and embolism
CPT/HCPCS: 96372; 99283; A9270; J0171; J7512

== ENCOUNTER 2021-09-08 09:49 | Emergency (ER) | payer OTHER, SELFPAY ==
[2021-09-08 09:52] VITALS: BP 131/76; PULSE 98; RESP 16; TEMP 36.6; O2SAT 99
--- NOTE | 2021-09-08 10:01 | ED.SKABFB ---
HPI - Skin/Abscess/Foreign Bdy General Chief complaint: Skin/Abscess/Foreign Body Stated complaint: tired, Right axilla pain Time Seen by Provider: 09/08/21 09:53 History of Present Illness HPI narrative: 35-year-old female presents the emergency room for evaluation pain mass to her right armpit. Patient states she shaved her armpits 2 days ago, and noticed a red, swollen, painful lump to her right axilla. Patient denies fever Related Data Home Medications Medication Instructions Recorded Confirmed guanfacine 1 mg tablet 2 mg PO PRN PRN Anxiety 11/05/20 01/08/21 Allergies Allergy/AdvReac Type Severity Reaction Status Date / Time No Known Allergies Allergy Verified 08/31/21 12:16 Review of Systems Review of Systems: CONSTITUTIONAL: Denies fever, chills, or sweats. EYES: Denies visual changes, redness, or discharge. ENT: Denies rhinorrhea, congestion, sore throat, or otalgia. CARDIOVASCULAR: Denies chest pain, palpitations, or edema. RESPIRATORY: Denies cough or dyspnea. GASTROINTESTINAL: Denies abdominal pain, nausea, vomiting, or diarrhea. GENITOURINARY: Denies dysuria or hematuria. SKIN: Denies rash MUSCULOSKELETAL: Denies back pain, joint pain, or myalgia. NEUROLOGIC: Denies headache, numbness, dizziness, or weakness. PSYCHIATRIC: Denies anxiety or depression. [facility] Past Medical History Medical History Anxiety Asthma Bowel obstruction Depression DVT (deep venous thrombosis) Eczema Essential hypertension Perforated duodenal ulcer Post traumatic stress disorder (PTSD) Surgical History Surgical History H/O section History of abdominal surgery (11/12/20) Closure perforated duodenal ulcer with omental plasty performed by Dr. Mathew Family History Family History Other No pertinent family history Social History Social History Smoking packs per day: 1.5 Smoking cigarettes per day: 30.0 Years smoked: 30 Smoking pack-years: 45.00 Smoking status: Current every day smoker Tobacco type: cigarettes Alcohol intake: current Drinks per week: 7 Substance use: current Substance use type: amphetamines and methamphetamine Spiritual care concerns: No Exam Narrative: GENERAL: Well-appearing, well-nourished, and in no acute distress. HEAD: Normocephalic, atraumatic. EYES: PERRLA and EOMI. CHEST: Clear to auscultation. No respiratory distress. No wheezes rales or rhonchi HEART: Regular rate and rhythm. No murmur heard. Normal peripheral pulses. ABDOMEN: Soft, nontender, nondistended, normal active bowel sounds. EXTREMITIES: Normal range of motion. No edema. SKIN: Right axilla: Tender area of erythema with no induration or fluctuance, centralized pustule. No streaking or lymphangitic spread NEURO: No focal deficits. Alert and oriented x3. PSYCH: Normal mood and affect. Course Vital Signs Vital signs: Vital Signs Temperature 36.6 C 09/08/21 09:52 Pulse Rate 98 09/08/21 09:52 Respiratory Rate 16 09/08/21 09:52 Blood Pressure 131/76 09/08/21 09:52 Pulse Oximetry 99 09/08/21 09:52 Temperature 36.6 C 09/08/21 09:52 Pulse Rate 98 09/08/21 09:52 Respiratory Rate 16 09/08/21 09:52 Blood Pressure 131/76 09/08/21 09:52 Pulse Oximetry 99 09/08/21 09:52 Discharge Plan Discharge Clinical Impression: Folliculitis Patient Disposition: Home, Self-Care Condition: Stable Instructions: Antibiotic Form Additional Instructions: Keep area wound clean and dry. Do not incise area or open up any pustule that you may observe. Refrain from using deodorant or shaving on affected area until you have completed the antibiotics. Prescriptions: New mupirocin 2 % ointment 1 applic topical BID 10 Days Qty: 22 0RF No
== END 2021-09-08 10:17 | disposition home or self-care (01) ==
PROVIDERS: Emergency Provider Nurse Practitioner Family; PCP Internal Medicine
DX: L73.9 Follicular disorder, unspecified (principal); I10 Essential (primary) hypertension; J45.909 Unspecified asthma, uncomplicated; F17.210 Nicotine dependence, cigarettes, uncomplicated; Z86.718 Personal history of other venous thrombosis and embolism; F41.9 Anxiety disorder, unspecified; F43.10 Post-traumatic stress disorder, unspecified
CPT/HCPCS: 99283

== ENCOUNTER 2023-12-25 15:16 | Emergency (ER) | payer OTHER, SELFPAY ==
--- NOTE | ~2023-12-25 | XR_ITS ---
EXAMINATION: XR hand LT min 3V DATE: 12/25/2023 16:30 INDICATION: Left hand injury TECHNIQUE: Posteroanterior, oblique and lateral views of the left hand were obtained. COMPARISON: None. FINDINGS: Oblique extra-articular diaphyseal fracture of the left fourth proximal phalanx with 3 mm palmar disp lacement and 3 mm proximal migration. There are multiple minute densities projecting along the skin s urface at the palmar/radial aspect of the base of the fourth digit were there is a circumferential in dentation suggesting removal of a ring with some residual metallic filings. Bone alignment is otherwi se normal. No other fractures identified. Joint spaces are normal. Mild diffuse soft tissue tissue sw elling at the left hand. IMPRESSION: 1. Mildly displaced extra articular diaphyseal fracture of the left fourth proximal phalanx. Reviewed, dictated and finalized at location A. IMPRESSION: 1. Mildly displaced extra articular diaphyseal fracture of the left fourth prox imal phalanx.
[2023-12-25 15:22] VITALS: BP 113/62; PULSE 92; RESP 20; TEMP 36.8; O2SAT 100
--- NOTE | 2023-12-25 15:28 | ED.EXTPRO ---
HPI - Extremity Problem General Chief complaint: Extremity Injury, Upper Stated complaint: Left Hand Finger Pain Time Seen by Provider: 12/25/23 15:29 Source: patient, RN notes reviewed and old records reviewed Mode of arrival: ambulatory Limitations: no limitations History of Present Illness HPI Narrative: Patient presents with complaints of left 4th finger pain and swelling. She does have a ring on the affected finger that was removed with the help of EMS, who came from across the street to help with this. Patient is complaining of pain to the affected hand and finger. She has not taken anything for her symptoms. She is unable to move the 4th digit Related Data Home Medications Medication Instructions Recorded Confirmed guanfacine 1 mg tablet 2 mg PO PRN PRN Anxiety 11/05/20 12/25/23 levothyroxine 88 mcg tablet 88 mcg PO DAILY 12/25/23 12/25/23 meloxicam 15 mg tablet 15 mg PO DIRECTED 12/25/23 12/25/23 Allergies Allergy/AdvReac Type Severity Reaction Status Date / Time No Known Allergies Allergy Verified 12/25/23 15:23 Review of Systems Review of Systems: All systems reviewed & are unremarkable except as noted in HPI and below Constitutional: Constitutional: Reports no additional constitutional complaints ENT: Reports system reviewed and no additional complaints, except as documented Cardiovascular: Cardiovascular: Reports no additional cardiovascular complaints Respiratory: Respiratory: Reports no additional respiratory complaints Gastrointestinal: Gastrointestinal: Reports no additional gastrointestinal complaints Musculoskeletal: Musculoskeletal: Reports no additional musculoskeletal complaints, Reports as per HPI, Reports deformity, Reports arthralgias and Reports joint swelling PMFSH Past Medical History Medical History Anxiety Asthma Bowel obstruction Depression DVT (deep venous thrombosis) Eczema Essential hypertension Perforated duodenal ulcer Post traumatic stress disorder (PTSD) Surgical History Surgical History H/O section History of abdominal surgery (11/12/20) Closure perforated duodenal ulcer with omental plasty performed by Dr. Mathew Family History Family History Other No pertinent family history Social History Social History Smoking packs per day: 1.5 Smoking cigarettes per day: 30.0 Years smoked: 30 Smoking pack-years: 45.00 Smoking status: Current every day smoker Tobacco type: cigarettes Alcohol intake: current Drinks per week: 7 Substance use: current Substance use type: amphetamines and methamphetamine Spiritual care concerns: No Comments At the time of my signature, I reviewed and agree with the nursing past medical, surgical, social, and family history. There is no relevant family history pertinent to the patient complaint. Exam Const: General: no acute distress, alert and awake Orientation/consciousness: oriented to person, oriented to place and oriented to time HENMT: Head: normal to inspection Resp: Effort & Inspection: normal respiratory effort and able to speak in complete sentences Auscultation: clear to auscultation bilaterally, no crackles, no rales, no rhonchi and no wheezes Cardio: Palpation: normal PMI Rate: regular rate Rhythm: regular rhythm Heart sounds: S1 normal heart sound present and S2 normal heart sound present Neuro: General: oriented to person, oriented to place and oriented to time Cranial nerves: Yes CN's II-XII intact bilaterally Extrem: Right upper extremity: normal capillary refill and Extremity exam: right hand normal capillary refill, neurosensory exam normal, tenderness of the 4th digit involving the entire digit and abnormal ROM of finger unable to flex or extend of the 4
== END 2023-12-25 17:05 | disposition home or self-care (01) ==
PROVIDERS: Emergency Provider Nurse Practitioner Family; PCP Internal Medicine
DX: S62.615A Displaced fracture of proximal phalanx of left ring finger, initial encounter for closed fracture (principal); X58.XXXA Exposure to other specified factors, initial encounter; J45.909 Unspecified asthma, uncomplicated; I10 Essential (primary) hypertension; Z86.718 Personal history of other venous thrombosis and embolism; F17.210 Nicotine dependence, cigarettes, uncomplicated
CPT/HCPCS: 29130; 73130; 99214; G0463

== ENCOUNTER 2024-01-30 08:53 | Outpatient (CLI) | payer OTHER, SELFPAY ==
--- NOTE | ~2024-01-30 | XR_ITS ---
EXAMINATION: XR hand LT min 3V DATE: 01/30/2024 09:19 INDICATION: Left hand fourth digit fracture. TECHNIQUE: 4 views of left hand were obtained. COMPARISON: Left hand radiographs 12/25/2023 FINDINGS: There is an oblique fracture of diaphysis of fourth proximal phalanx. The distal fracture f ragment demonstrates 5 mm shortening, 2 mm radial displacement, and 6 degrees dorsal angulation. Join t spaces are normal. IMPRESSION: 1. Oblique fracture of diaphysis of fourth proximal phalanx with worsened alignment. Reviewed, dictated and finalized at location B. IMPRESSION: 1. Oblique fracture of diaphysis of fourth proximal phalanx with worsened align ment.
== END 2024-01-30 08:54 | disposition home or self-care (01) ==
PROVIDERS: PCP Internal Medicine; Visit Provider Plastic Surgery
DX: S62.615D Displaced fracture of proximal phalanx of left ring finger, subsequent encounter for fracture with routine healing (principal); X58.XXXD Exposure to other specified factors, subsequent encounter
CPT/HCPCS: 73130

== ENCOUNTER 2024-03-08 16:40 | Emergency (ER) | payer OTHER, SELFPAY ==
[2024-03-08] VITALS (7 sets, daily range): BP systolic 139–176; BP diastolic 90–99; PULSE 72–115; RESP 16–20; TEMP 36.7–36.8; O2SAT 97–100
--- NOTE | ~2024-03-08 | XR_ITS ---
XR chest 1V portable Ordering provider: Carlota Chandler PA-C History: 38 years Female with . cough, sob, cp . Comparison: January 07, 2021 FINDINGS: MEDIASTINUM: The cardiac silhouette is not enlarged. LUNGS: No effusions or pneumothorax. Bilateral interstitial thickening suggestive of pneumonitis invo lving the mid and lower zone on the right side and the left upper and mid zone on the left side. OTHER: No free air under the diaphragm. IMPRESSION: Highly suggestive bilateral pneumonitis. Clinical correlation advised. Reviewed, dictated and finalized at location A. [employer] [employer]KER
--- NOTE | ~2024-03-08 | CT_ITS ---
CTA chest PE protocol Ordering provider: Jordan Maier PA-C History: 38 years Female with . elevated d dimer, follow up XR . Comparison: None. Technique: CT angiogram chest was performed following timed intravenous injection of contrast. Thin s lice axial images and reformatted coronal images were obtained. Three dimensional reformatted images of the chest were also obtained using a [employer] workstation. . Automated exposure control and iterati ve reconstruction technique were employed. The dose-length product was 299.20 mGy-cm. 100 mL Omnipaque 350 was given IV. Findings: PULMONARY ARTERIES: No pulmonary embolus. VISUALIZED THORACIC INLET: Normal. MEDIASTINUM: Aorta/coronary arteries: Mild atheromatous disease. Heart/other: The heart is not enlarged. Lymph nodes: No mediastinal or hilar adenopathy. LUNGS: No pulmonary nodules or masses. No infiltrates or effusions. No pneumothorax. VISUALIZED UPPER ABDOMEN: Fat infiltration of the liver. Otherwise, the visualized upper abdomen is n ormal. MUSCULOSKELETAL: Soft tissues: The superficial soft tissues are normal. Bones: Normal spine. Fracture of the right fifth rib. Old healed fracture of the third and fourth ribs. IMPRESSION: 1. No pulmonary embolism. 2. No acute cardiopulmonary pathology. 3. Fracture of the right fourth rib. 4. Fat infiltration of the liver. Reviewed, dictated and finalized at location A. [employer]
--- NOTE | 2024-03-08 16:45 | ED.SOB ---
HPI - SOB/Dyspnea General Chief Complaint: Shortness of Breath/Dyspnea <FAMILIA Soriano Last Filed: 03/08/24 16:50> Stated Complaint: asthma attack <FAMILIA Soriano Last Filed: 03/08/24 16:50> Time Seen by Provider: 03/08/24 16:45 <FAMILIA Soriano Last Filed: 03/08/24 16:50> Focused HPI: Patient is a 38 y/o female who presents to the ED with c/o asthma attack. Patient reports she has been sick for the past 2 days with rhinorrhea, production cough, congestion, body aches. Reports having diffuse R sided back and chest pain with coughing and at rest. Has been feeling increasingly SOB, worse with exertion. Hx of asthma, has been using inhaler w/o improvement. Feels like she is having an asthma flare. Denies fevers. GENERAL: Well-appearing, well-nourished, and in no acute distress. HEAD: Normocephalic, atraumatic. CHEST: Airway patent. Respirations mildly labored. Diffuse inspiratory and expiratory wheezing bilaterally, worse throughout right lung carter. HEART: Tachycardic with regular rhythm.? NEURO: ?Alert and oriented x3. Patient screened in triage and initial orders placed.? ?Additional care and disposition to be based upon?diagnostic testing and treatment. <FAMILIA Soriano Last Filed: 03/08/24 16:50> Source: patient <FAMILIA Soriano Last Filed: 03/08/24 16:50> Mode of arrival: ambulatory <FAMILIA oSriano Last Filed: 03/08/24 16:50> Limitations: no limitations <FAMILIA Soriano Last Filed: 03/08/24 16:50> History of Present Illness HPI Narrative: agree with triage note above <FAMILIA Bowen Last Filed: 03/09/24 01:47> Related Data Home Medications: Home Medications Medication Instructions Recorded Confirmed guanfacine 1 mg tablet 2 mg PO PRN PRN Anxiety 11/05/20 12/25/23 levothyroxine 88 mcg tablet 88 mcg PO DAILY 12/25/23 12/25/23 meloxicam 15 mg tablet 15 mg PO DIRECTED 12/25/23 12/25/23 <FAMILIA Soriano Last Filed: 03/08/24 16:50> Allergies/Adverse Reactions: Allergies Allergy/AdvReac Type Severity Reaction Status Date / Time No Known Allergies Allergy Verified 03/08/24 16:46 <FAMILIA Soriano Last Filed: 03/08/24 16:50> Review of Systems Review of Systems: All systems as dictated in HPI <FAMILIA Bowen Last Filed: 03/09/24 01:47> [facility] Past Medical History Medical History: Medical History Anxiety Asthma Bowel obstruction Depression DVT (deep venous thrombosis) Eczema Essential hypertension Perforated duodenal ulcer Post traumatic stress disorder (PTSD) <FAMILIA Soriano Last Filed: 03/08/24 16:50> Surgical History Surgical History: Surgical History H/O section History of abdominal surgery (11/12/20) Closure perforated duodenal ulcer with omental plasty performed by Dr. Mathew <FAMILIA Soriano Last Filed: 03/08/24 16:50> Family History Family History: Family History Other No pertinent family history <FAMILIA Soriano Last Filed: 03/08/24 16:50> Social History Social History: Social History Smoking packs per day: 1.5 Smoking cigarettes per day: 30.0 Years smoked: 30 Smoking pack-years: 45.00 Smoking status: Current every day smoker Tobacco type: cigarettes Alcohol intake: current Drinks per week: 7 Substance use: current Substance use type: amphetamines and methamphetamine Spiritual care concerns: No <FAMILIA Soriano Last Filed: 03/08/24 16:50> Exam Narrative: GENERAL: Well-appearing, well-nourished, and in no acute distress. HEAD: Normocephalic, atraumatic. EYES: PERRLA and EOMI. ENT: Nares clear, no rhinorrhea or epistaxis. Mucous membranes moist. Oropharynx without tonsillar hypertrophy exudate or other lesions. NECK: Supple. No adenopathy or masses. CHEST: Able speak in full sentences, however there is expiratory wheezing heard diffusely. Saturating 99% room air. HEART: Regular rate and rhythm. No murmur heard. Normal peripheral pulses. ABDOMEN: Soft, nontender, nondistended, normal active bowel sounds. MSK: Normal range of motion. No edema. SKIN: Warm, dry, no rash. NEURO: Alert and oriented x4. No focal deficits. PSYCH: Normal mood and affect. <FAMILIA Bowen Last Filed: 03/09/24 01:47> Course Vital Signs Vital signs: Vital Signs Temperature 98.1 F 03/08/24 16:42 Pulse Rate 106 H 03/08/24 16:42 Respiratory Rate 20 03/08/24 16:42 Blood Pressure 176/99 H 03/08/24 16:42 Pulse Oximetry 99 03/08/24 16:42 Oxygen Delivery Room Air 03/08/24 16:42 Temperature 98.2 F 03/08/24 20:51 Pulse Rate 72 03/08/24 20:51 Respiratory Rate 16 03/08/24 20:51 Blood Pressure 150/95 H 03/08/24 20:51 Pulse Oximetry 97 03/08/24 20:53 Oxygen Delivery Room Air 03/08/24 20:53 <FAMILIA Soriano Last Filed: 03/08/24 16:50> Vital Signs Temperature 98.1 F 03/08/24 16:42 Pulse Rate 106 H 03/08/24 16:42 Respiratory Rate 20 03/08/24 16:42 Blood Pressure 176/99 H 03/08/24 16:42 Pulse Oximetry 99 03/08/24 16:42 Oxygen Delivery Room Air 03/08/24 16:42 Temperature 98.2 F 12/06/24 20:51 Pulse Rate 72 03/08/24 20:51 Respiratory Rate 16 03/08/24 20:51 Blood Pressure 150/95 H 03/08/24 20:51 Pulse Oximetry 97 03/08/24 20:53 Oxygen Delivery Room Air 03/08/24 20:53 <Jordan Maier PA-C - Last Filed: 03/09/24 01:47> MDM - SOB/Dyspnea MDM Narrative Medical decision making narrative: MSE by BARBARA in triage. <Carlota Chandler PA-C - Last Filed: 03/08/24 16:50> MSE by BARBARA in triage. This is a 38-year-old female who presents to the ED for chief complaint of likely asthma flare.. Vitals show initial elevated blood pressure but otherwise normal. She is saturating well on room air. She has extensive wheezing on exam and initial presentation is consistent with acute flare of asthma. She was started on Solu-Medrol in triage as well as breathing treatments. EKG shows sinus rhythm with no acute ischemic findings. Lab work shows normal white count on the CBC. CMP unremarkable. Viral swabs negative. D-dimer is coming back slightly elevated at 0.55. CXR: IMPRESSION: Highly suggestive bilateral pneumonitis. Clinical correlation advised. CTA Chest: IMPRESSION: 1. No pulmonary embolism. 2. No acute cardiopulmonary pathology. 3. Fracture of the right fourth rib. 4. Fat infiltration of the liver. Patient is feeling much improved after the breathing treatment today. Presentation is consistent with acute flare of asthma. Rx for albuterol and Symbicort given. Rx for Medrol Dosepak as well. Patient will be discharged in stable condition. Supportive measures discussed and return precautions given. Patient is understanding and agreeable with plan for discharge with PCP follow-up. <FAMILIA Bowen Last Filed: 03/09/24 01:47> Lab Data Result diagrams: 03/08/24 17:17 03/08/24 17:17 <Carlota Chandler PA-C - Last Filed: 03/08/24 16:50> Labs: Lab Results 03/08/24 03/08/24 Range/Units 17:17 17:40 WBC 8.5 (4.5-10.0) K/mm3 RBC 4.81 (4.2-5.4) M/mm3 Hgb 14.0 D (12.0-15.0) g/dL Hct 43.5 (37.0-47.0) % MCV 90.4 (80-100) fl MCH 29.1 (26-34) pg MCHC 32.2 (32-36) g/dl RDW 15.9 H (11.5-14.5) % Plt Count 245 (150-375) k/mm3 MPV 11.1 H (7.4-10.4) fl Immature Gran % (Auto) 0.4 (0-0.5) % Neut % (Auto) 62.7 (45.5-73.1) % Lymph % (Auto) 21.2 (18.3-44.2) % Alexander % (Auto) 7.3 (2.6-8.5) % Eos % (Auto) 6.9 H (0-4.4) % Baso % (Auto) 1.5 H (0.2-1.2) % Lymph # (Auto) 1.79 (0.9-3.2) K/mm3 Alexander # (Auto) 0.6 (0.1-0.6) K/mm3 Eos # (Auto) 0.6 H (0-0.3) K/mm3 Baso # (Auto) 0.1 (0.0-0.1) K/mm3 Abs Immat Gran (auto) 0.03 (0.00-0.031) K/mm3 Absolute Neuts (auto) 5.3 (1.3-6.7) K/mm3 Absolute Nucleated RBC 0.000 (0.0-0.012) K/mm3 Nucleated RBC % 0.0 (0.0-0.2) % PT 12.8 (11.1-14.7) Seconds INR 0.9 APTT 24.0 (22.3-36.8) Seconds D-Dimer 0.55 H (<0.48) ug/mL Sodium 136 L (137-145) mmol/L Potassium 4.0 (3.4-5.0) mmol/L Chloride 104 (98-107) mmol/L Carbon Dioxide 27 (22-30) mmol/L Anion Gap 5 (4-12) mmol/L BUN 13 (7-17) mg/dL Creatinine 0.80 (0.7-1.0) mg/dL Estim Creat Clear Calc 90 ml/min Estimated GFR > 60 (59 - ) Glucose 90 (65-110) mg/dL Calcium 8.6 (8.4-10.2) mg/dL Total Bilirubin 0.4 (0.2-1.3) mg/dL AST 30 (14-36) U/L ALT 18 (6-35) U/L Alkaline Phosphatase 85 (38-126) U/L Troponin I < 0.012 (0.000-0.034) ng/mL NT-Pro-B Natriuret Pep < 20 (19.9-100) pg/mL Total Protein 8.0 (6.3-8.2) g/dL Albumin 4.3 (3.5-5.1) g/dL Influenza A (RT-PCR) Negative (Negative) Influenza B (RT-PCR) Negative (Negative) RSV (RT-PCR) Negative (Negative) SARS-CoV-2 RNA (RT-PCR) Negative (Negative) <Carlota Chandler PA-C - Last Filed: 03/08/24 16:50> Lab Results 03/08/24 03/08/24 Range/Units 17:17 17:40 WBC 8.5 (4.5-10.0) K/mm3 RBC 4.81 (4.2-5.4) M/mm3 Hgb 14.0 D (12.0-15.0) g/dL Hct 43.5 (37.0-47.0) % MCV 90.4 (80-100) fl MCH 29.1 (26-34) pg MCHC 32.2 (32-36) g/dl RDW 15.9 H (11.5-14.5) % Plt Count 245 (150-375) k/mm3 MPV 11.1 H (7.4-10.4) fl Immature Gran % (Auto) 0.4 (0-0.5) % Neut % (Auto) 62.7 (45.5-73.1) % Lymph % (Auto) 21.2 (18.3-44.2) % Alexander % (Auto) 7.3 (2.6-8.5) % Eos % (Auto) 6.9 H (0-4.4) % Baso % (Auto) 1.5 H (0.2-1.2) % Lymph # (Auto) 1.79 (0.9-3.2) K/mm3 Alexander # (Auto) 0.6 (0.1-0.6) K/mm3 Eos # (Auto) 0.6 H (0-0.3) K/mm3 Baso # (Auto) 0.1 (0.0-0.1) K/mm3 Abs Immat Gran (auto) 0.03 (0.00-0.031) K/mm3 Absolute Neuts (auto) 5.3 (1.3-6.7) K/mm3 Absolute Nucleated RBC 0.000 (0.0-0.012) K/mm3 Nucleated RBC % 0.0 (0.0-0.2) % PT 12.8 (11.1-14.7) Seconds INR 0.9 APTT 24.0 (22.3-36.8) Seconds D-Dimer 0.55 H (<0.48) ug/mL Sodium 136 L (137-145) mmol/L Potassium 4.0 (3.4-5.0) mmol/L Chloride 104 (98-107) mmol/L Carbon Dioxide 27 (22-30) mmol/L Anion Gap 5 (4-12) mmol/L BUN 13 (7-17) mg/dL Creatinine 0.80 (0.7-1.0) mg/dL Estim Creat Clear Calc 90 ml/min Estimated GFR > 60 (59 - ) Glucose 90 (65-110) mg/dL Calcium 8.6 (8.4-10.2) mg/dL Total Bilirubin 0.4 (0.2-1.3) mg/dL AST 30 (14-36) U/L ALT 18 (6-35) U/L Alkaline Phosphatase 85 (38-126) U/L Troponin I < 0.012 (0.000-0.034) ng/mL NT-Pro-B Natriuret Pep < 20 (19.9-100) pg/mL Total Protein 8.0 (6.3-8.2) g/dL Albumin 4.3 (3.5-5.1) g/dL Influenza A (RT-PCR) Negative (Negative) Influenza B (RT-PCR) Negative (Negative) RSV (RT-PCR) Negative (Negative) SARS-CoV-2 RNA (RT-PCR) Negative (Negative) <FAMILIA Bowen Last Filed: 03/09/24 01:47> ECG Data EKG #1: ECG completion date: 03/08/24 <FAMILIA Bowen Last Filed: 03/09/24 01:47> ECG completion time: 17:08 <FAMILIA Bowen Last Filed: 03/09/24 01:47> Prior ECG tracings: not available for review <FAMILIA Bowen Last Filed: 03/09/24 01:47> Interpretation: sinus rhythm Rate 98 Normal QRS Normal QTC No acute ischemic findings <FAMILIA Bowen Last Filed: 03/09/24 01:47> Discharge Plan Discharge Clinical Impression: Asthma flare <FAMILIA Soriano Last Filed: 03/08/24 16:50> Patient Disposition: Home, Self-Care <FAMILIA Soriano Last Filed: 03/08/24 16:50> Condition: Stable <FAMILIA Soriano Last Filed: 03/08/24 16:50> Instructions: Antibiotic Form <FAMILIA Soriano Last Filed: 03/08/24 16:50> Additional Instructions: Exam and imaging today are representing an asthma flare. Please take inhalers as prescribed and use Medrol dose pack. Contact PCP regarding nebulizer prescriptions. If you have any new or worsening symptoms please return to the ER for further evaluation. <Carlota Chandler PA-C - Last Filed: 03/08/24 16:50> Prescriptions: New budesonide-formoterol [Symbicort] 160-4.5 mcg/actuation HFA aerosol inhaler 2 puff inhalation Q12H Qty: 10.2 0RF albuterol sulfate 90 mcg/actuation HFA aerosol inhaler 2 puff inhalation QID PRN (Reason: shortness of breath or wheezing) Qty: 6.7 0RF methylprednisolone [Medrol (Nikolas)] 4 mg tablets,dose pack See Rx Instructions .ROUTE .COMPLEX Qty: 21 0RF Rx Instructions: for 6 days No Action guanfacine 1 mg tablet 2 mg PO PRN PRN (Reason: Anxiety) meloxicam 15 mg tablet 15 mg PO DIRECTED levothyroxine 88 mcg tablet 88 mcg PO DAILY triamcinolone acetonide 0.1 % cream 1 applic topical TID Qty: 30 0RF pantoprazole [Protonix] 40 mg tablet,delayed release (DR/EC) 40 mg PO BID 30 Days Qty: 60 0RF ascorbic acid (vitamin C) 500 mg tablet 500 mg PO DAILY Qty: 30 0RF ferrous sulfate 325 mg (65 mg iron) tablet 325 mg PO BID Qty: 60 0RF sertraline 100 mg tablet 150 mg PO DAILY Qty: 45 0RF hydroxyzine HCl 50 mg tablet 50 mg PO TID PRN (Reason: Itching) Qty: 30 0RF trazodone 100 mg tablet 150 mg PO HS Qty: 45 0RF metoprolol tartrate 50 mg tablet 50 mg PO Q12H Qty: 60 0RF <Carlota Chandler PA-C - Last Filed: 03/08/24 16:50> Follow-up/Referrals: Romero Westfall MD [Primary Care Provider] - <Carlota Chandler PA-C - Last Filed: 03/08/24 16:50> Time of Disposition: 20:34 <Carlota Chandler PA-C - Last Filed: 03/08/24 16:50> 20:34 <Jordan Maier PA-C - Last Filed: 03/09/24 01:47>
--- NOTE | 2024-03-08 16:47 | ECG_ITS ---
Test Date: 2024-03-08 17:08:55 Measurements Intervals [place] Rate: 98 P: 61 OH: 173 QRS: -18 QRSD: 85 T: 52 QT: 341 QTc: 435 Interpretive Statements SINUS RHYTHM No previous ECG available for comparison Electronically Signed On 03-09-2024 14:27:19 [employer]ED [employer] by Oneal Wu M.D.
--- NOTE | 2024-03-08 17:01 | PCRCNOTE ---
Patient is still in the waiting room but has a continuous nebulizer treatment ordered; Nursing notified Pt. needs to be put in a room to be on a continuous monitor for the treatment.
[2024-03-08] MEDS: methylPREDNISolone SOD SUCC 125 MG VIAL IV PUSH (17:16)
[2024-03-08] MEDS: LEVALBUTEROL NEB 1.25 MG/3 ML 2.5 MG INHALATION (17:16)
[2024-03-08] MEDS: IPRATROPIUM BR 0.02% INH SOLN 0.5 MG/2.5 ML VIAL 1.5 MG INHALATION (17:17)
[2024-03-08 17:36] LABS: Basophils Absolute Auto 0.1 K/mm3 (0.0-0.1); Basophils Percent Auto 1.5 % (0.2-1.2); Eosinophils Absolute Auto 0.6 K/mm3 (0-0.3); Eosinophils Percent Auto 6.9 % (0-4.4); Hematocrit 43.5 % (37.0-47.0); Immature Granulocyte Absolute 0.03 K/mm3 (0.00-0.031); Immature Granulocyte Percent A 0.4 % (0-0.5); Lymphocytes Absolute Auto 1.79 K/mm3 (0.9-3.2); Lymphocytes Percent Auto 21.2 % (18.3-44.2); Mean Corpuscular HGB Conc 32.2 g/dl (32-36); Mean Corpuscular Hemoglobin 29.1 pg (26-34); Mean Corpuscular Volume 90.4 fl (80-100); Mean Platelet Volume 11.1 fl (7.4-10.4); Monocytes Absolute Auto 0.6 K/mm3 (0.1-0.6); Monocytes Percent Auto 7.3 % (2.6-8.5); Neutrophils Absolute Auto 5.3 K/mm3 (1.3-6.7); Neutrophils Percent Auto 62.7 % (45.5-73.1); Platelet Count Result 245 k/mm3 (150-375); Red Blood Count 4.81 M/mm3 (4.2-5.4); Red Cell Distribution Width 15.9 % (11.5-14.5); White Blood Count 8.5 K/mm3 (4.5-10.0)
[2024-03-08 17:48] LABS: Alanine Aminotransferase 18 U/L (6-35); Albumin Level 4.3 g/dL (3.5-5.1); Alkaline Phosphatase 85 U/L (38-126); Anion Gap 5 mmol/L (4-12); Aspartate Amino Transferase 30 U/L (14-36); Bilirubin,Total 0.4 mg/dL (0.2-1.3); Blood Urea Nitrogen 13 mg/dL (7-17); Calcium 8.6 mg/dL (8.4-10.2); Carbon Dioxide 27 mmol/L (22-30); Chloride 104 mmol/L (98-107); Estimated CRCL calculation 90 ml/min; Estimated Glomerular Filt Rate > 60; Glucose 90 mg/dL (65-110); Sodium 136 mmol/L (137-145)
[2024-03-08 17:53] LABS: INR 0.9; Prothrombin Time 12.8 Seconds (11.1-14.7)
[2024-03-08 17:59] LABS: NT Pro B Type Natriuretic Pept < 20 pg/mL (19.9-100); Troponin I < 0.012 ng/mL (0.000-0.034)
[2024-03-08 18:16] LABS: D Dimer 0.55 ug/mL (<0.48)
[2024-03-08 18:21] LABS: Influenza A QL RT-PCR Negative (Negative); Influenza B QL RT-PCR Negative (Negative); RSV RNA, RT-PCR Negative (Negative); SARS-CoV-2 RNA PCR Negative (Negative)
== END 2024-03-08 21:02 | disposition home or self-care (01) ==
PROVIDERS: Physician Assistant; Emergency Provider Physician Assistant; PCP Internal Medicine
DX: J45.901 Unspecified asthma with (acute) exacerbation (principal); F41.8 Other specified anxiety disorders; I10 Essential (primary) hypertension; Z86.718 Personal history of other venous thrombosis and embolism; F17.210 Nicotine dependence, cigarettes, uncomplicated; Z20.822 Contact with and (suspected) exposure to COVID-19
CPT/HCPCS: 36415; 71045; 71275; 80053; 83880; 84484; 85025; 85380; 85610; 85730; 87637; 93005; 94640; 96374; 99284; J2919; Q9967

== ENCOUNTER 2024-04-22 14:25 | Emergency (ER) | payer OTHER, SELFPAY ==
--- NOTE | ~2024-04-22 | XR_ITS ---
EXAMINATION: XR elbow LT 2V DATE: 04/22/2024 16:09 INDICATION: Left elbow injury. Fall. TECHNIQUE: 2 views of left elbow were obtained. COMPARISON: None. FINDINGS: There is a shear fracture of capitellum of distal humerus with 90 degrees volar rotation of the distal fracture fragment. There is dislocation of the capitellum fracture fragment from its norm al articulation with the radial head. The ulnohumeral joint is normal. There is a large elbow joint e ffusion. IMPRESSION: 1. Fracture of capitellum of distal humerus with dislocation of radiocapitellar joint. 2. Large elbow joint effusion. Reviewed, dictated and finalized at location B. ITY COMPLIANCE CONSULTANT
[2024-04-22 14:32] VITALS: BP 172/109; PULSE 98; RESP 20; TEMP 36.4; O2SAT 100
--- NOTE | 2024-04-22 15:45 | ED_ITS ---
HPI - Extremity Injury (Upper) General Chief Complaint: Extremity Injury, Upper <Karlee Cabezas APRN - Last Filed: 04/22/24 15:46> Stated Complaint: LUE pain after mechanical fall <Karlee Cabezas APRN - Last Filed: 15:46> Time Seen by Provider: 04/22/24 15:40 <Karlee Cabezas APRN - Last Filed: 04/22/24 15:46> Focused HPI: Patient is a 38-year-old female who presents to the ER with left elbow pain. She reports last night she slipped on the ice and fell. Patient has not taken any pain medication but has been icing the affected extremity. She endorses pain with any movement and manipulation. Patient's heart endorses a history of blood pressure and asthma. She denies any com plaints of neck pain, back pain, chest pain, shoulder pain. GENERAL: Well-appearing, well-nourished, and in mild distress d/t pain. HEAD: Normocephalic, atraumatic. CHEST: Clear to auscultation. ?No respiratory distress. HEART: Regular rate and rhythm.? NEURO: ?Alert and oriented x3. Patient screened in triage and initial orders placed.? ?Additional care and disposition to be based upon?diagnostic testing and treatment. <Karlee Cabezas APRN - Last Filed: 04/22/24 15:46> Related Data Home Medications: Home Medications ?Medication ?Instructions ?Recorded ?Confirmed ?Last Taken ?Type guanfacine 1 mg tablet 2 mg PO PRN PRN Anxiety 11/05/20 12/25/23 Unknown History levothyroxine 88 mcg tablet 88 mcg PO DAILY 12/25/23 12/25/23 Unknown History meloxicam 15 mg tablet 15 mg PO DIRECTED 12/25/23 12/25/23 Unknown History <Karlee Cabezas APRN - Last Filed: 04/22/24 15:46> Allergies/Adverse Reactions: Allergies Allergy/AdvReac Type Severity Reaction Status Date / Time No Known Allergies Allergy Verified 04/22/24 15:57 <Karlee Cabezas APRN - Last Filed: 04/22/24 15:46> Review of Systems Review of Systems: All systems as dictated in HPI <Jordan Maier PA-C - Last Filed: 04/22/24 18:34> [facility] Past Medical History Medical History: Medical History Anxiety Asthma Bowel obstruction Depression DVT (deep venous thrombosis) Eczema Essential hypertension Perforated duodenal ulcer Post traumatic stress disorder (PTSD) <Karlee Cabezas APRN - Last Filed: 04/22/24 15:46> Surgical History Surgical History: Surgical History H/O section History of abdominal surgery (11/12/20) Closure perforated duodenal ulcer with omental plasty performed by Dr. Mathew <Karlee Cabezas APRN - Last Filed: 04/22/24 15:46> Family History Family History: Family History Other No pertinent family history <Karlee Cabezas APRN - Last Filed: 04/22/24 15:46> Social History Social History: Social History Smoking packs per day: 1.5 Smoking cigarettes per day: 30.0 Years smoked: 30 Smoking pack-years: 45.00 Smoking status: Current every day smoker Tobacco type: cigarettes Alcohol intake: current Drinks per week: 7 Substance use: current Substance use type: amphetamines and methamphetamine Spiritual care concerns: No <Karlee Cabezas APRN - Last Filed: 04/22/24 15:46> Exam Narrative: GENERAL: Well-appearing, well-nourished, and in no acute distress. HEAD: Normocephalic, atraumatic. EYES: PERRLA and EOMI. ENT: Nares clear, no rhinorrhea or epistaxis. Mucous membranes moist. Oropharynx without tonsillar hypertrophy exudate or other lesions. NECK: Supple. No adenopathy or masses. CHEST: No respiratory distress. Clear to auscultation. No wheezes rales or rhonchi HEART: Regular rate and rhythm. No murmur heard. Normal peripheral pulses. ABDOMEN: Soft, nontender, nondistended, normal active bowel sounds. MSK: LUE: Significant swelling to the left elbow with tenderness throughout. Range of motion reduced actively and passively. Radial pulse intact. Strength and sensation intact distally. Soft compartments. No tenderness to the wrist or shoulder. RUE: Benign Normal range of motion. No edema. SKIN: Warm, dry, no rash. NEURO: Alert and oriented x4. No focal deficits. PSYCH: Normal mood and affect. <Jordan Maier PA-C - Last Filed: 04/22/24 18:34> Course Course Emergency Course: Consult; Spoke with Dr. Armstrong (Ortho): He does recommend that I contact tertiary care center orthopedic team for an upper extremity specialist for this capitellar fracture. consult; Spoke with Dr. Good ([facility] Ortho): He was able to review the images and the patient being discharged and following up in clinic with Dr. Arcos. He agrees with long-arm posterior splint. <FAMILIA Bowen Last Filed: 04/22/24 18:34> Vital Signs Vital signs: Vital Signs Temperature 97.6 F 04/22/24 14:32 Pulse Rate 98 04/22/24 14:32 Respiratory Rate 20 04/22/24 14:32 Blood Pressure 172/109 H 04/22/24 14:32 Pulse Oximetry 100 04/22/24 14:32 Oxygen Delivery Room Air 04/22/24 14:32 Temperature 97.6 F 04/22/24 14:32 Pulse Rate 99 04/22/24 17:02 Respiratory Rate 16 04/22/24 17:02 Blood Pressure 143/92 H 04/22/24 17:02 Pulse Oximetry 100 04/22/24 17:02 Oxygen Delivery Room Air 04/22/24 14:32 <Karlee Cabezas, QUALITY ASSURANCE ENGINEER - Last Filed: 04/22/24 15:46> Vital Signs Temperature 97.6 F 04/22/24 14:32 Pulse Rate 98 04/22/24 14:32 Respiratory Rate 20 04/22/24 14:32 Blood Pressure 172/109 H 04/22/24 14:32 Pulse Oximetry 100 04/22/24 14:32 Oxygen Delivery Room Air 04/22/24 14:32 Temperature 97.6 F 04/22/24 14:32 Pulse Rate 99 04/22/24 17:02 Respiratory Rate 16 04/22/24 17:02 Blood Pressure 143/92 H 04/22/24 17:02 Pulse Oximetry 100 04/22/24 17:02 Oxygen Delivery Room Air 04/22/24 14:32 <Jordan Maier PA-C - Last Filed: 04/22/24 18:34> MDM - Extremity Injury (Upper) MDM Narrative Medical decision making narrative: This is a 30-year-old female who presents to the ED for chief complaint of left elbow injury that occurred around 2:00 a.m. last night. Vitals are normal. Exam shows swollen tender elbow with loss of range of motion. Neurovascularly intact distally. No evidence of compartment syndrome. Left elbow x-ray: IMPRESSION: 1. Fracture of capitellum of distal humerus with dislocation of radiocapitellar joint. 2. Large elbow joint effusion. Spoke with our orthopedic surgeon who recommend getting in touch with upper extremity specialist for this fracture. I was able speak with as a more thorough who will see the patient in outpatient clinic. No need for transfer today. Patient will be placed in a posterior long-arm splint. Short course of [place] given for pain control. Patient does admit that she used to be on Suboxone but has been stable/clean from any opioids for Suboxone treatment for the past 6 months. Shared decision making further short course of [place]. She is comfortable with this and will use sparingly for breakthrough pain. Patient will be discharged in stable condition. Supportive measures discussed and return precautions given. Patient is understanding and agreeable with plan for discharge with ortho follow-up. <Jordan Maier PA-C - Last Filed: 04/22/24 18:34> Discharge Plan Discharge Clinical Impression: Fracture, humerus Qualifiers: Encounter type: initial encounter Humerus Location: distal Fracture type: closed Fracture alignment: displaced Laterality: left <Karlee Cabezas APRN - Last Filed: 04/22/24 15:46> Patient Disposition: Home, Self-Care <HIRA Unger Last Filed: 04/22/24 15:46> Condition: Stable <Karlee Cabezas APRN - Last Filed: 04/22/24 15:46> Instructions: Antibiotic Form, Splint Care (ED) <Karlee Cabezas APRN - Last Filed: 04/22/24 15:46> Additional Instructions: Your exam today shows a dislocated fracture of your elbow. This needs to be followed up and surgery Clinic very soon. Please follow-up with [facility] orthopedics for this issue: [facility] [address] Arcos, [place] [address] Take [place] as prescribed for breakthrough pain. Control pain and baseline with Tylenol and ibuprofen every 6 hours If you have any new or worsening symptoms please return to the ER for further evaluation. <Karlee Cabezas APRN - Last Filed: 04/22/24 15:46> Patient Language: Marshallese <Karlee Cabezas APRN - Last Filed: 04/22/24 15:46> Prescriptions: New hydrocodone-acetaminophen 5-325 mg tablet 1 tablet PO Q8H PRN (Reason: pain) Qty: 14 0RF No Action guanfacine 1 mg tablet 2 mg PO PRN PRN (Reason: Anxiety) meloxicam 15 mg tablet 15 mg PO DIRECTED levothyroxine 88 mcg tablet 88 mcg PO DAILY triamcinolone acetonide 0.1 % cream 1 applic topical TID Qty: 30 0RF pantoprazole [Protonix] 40 mg tablet,delayed release (DR/EC) 40 mg PO BID 30 Days Qty: 60 0RF ascorbic acid (vitamin C) 500 mg tablet 500 mg PO DAILY Qty: 30 0RF ferrous sulfate 325 mg (65 mg iron) tablet 325 mg PO BID Qty: 60 0RF sertraline 100 mg tablet 150 mg PO DAILY Qty: 45 0RF hydroxyzine HCl 50 mg tablet 50 mg PO TID PRN (Reason: Itching) Qty: 30 0RF trazodone 100 mg tablet 150 mg PO HS Qty: 45 0RF metoprolol tartrate 50 mg tablet 50 mg PO Q12H Qty: 60 0RF budesonide-formoterol [Symbicort] 160-4.5 mcg/actuation HFA aerosol inhaler 2 puff inhalation Q12H Qty: 10.2 0RF albuterol sulfate 90 mcg/actuation HFA aerosol inhaler 2 puff inhalation QID PRN (Reason: shortness of breath or wheezing) Qty: 6.7 0RF methylprednisolone [Medrol (Nikolas)] 4 mg tablets,dose pack See Rx Instructions .ROUTE .COMPLEX Qty: 21 0RF Rx Instructions: for 6 days <Karlee Cabezas APRN - Last Filed: 04/22/24 15:46> Follow-up/Referrals: Romero Westfall MD [Primary Care Provider] - <Karlee Cabezas APRN - Last Filed: 04/22/24 15:46> Time of Disposition: 18:24 <Karlee Cabezas APRN - Last Filed: 04/22/24 15:46> 18:24 <Jordan Maier PA-C - Last Filed: 04/22/24 18:34>
[2024-04-22] MEDS: IBUPROFEN 600 MG TABLET PO (15:55)
[2024-04-22] MEDS: HYDROcodone/acetaminophen (*CRX) 5-325 MG TABLET 1 TAB PO (15:55)
[2024-04-22 17:02] VITALS: BP 143/92; PULSE 99; RESP 16; O2SAT 100
[2024-04-22 19:09] VITALS: BP 146/105; PULSE 101; RESP 17; TEMP 36.6; O2SAT 100
--- OUTSIDE RECORDS SUMMARY | 2024-04-25 14:05 | XMS_ITS ---
Author Organization [facility] Address [address] [place] [address] Care Team Providers Care Front Desk Administrator Name Role Phone Romero Westfall Primary Care Provider REASON FOR VISIT Refills Medications Medication SIG (Take, Route, Fr equency, Duration) Notes Start Date End Date Status Meloxicam 15 MG 1 tablet Orally Once a day for 30 days As needed pain 08/16/2021 Active Social History Sex Assigned At : Social History Observation Description Sex Assigned At Female Encounters Encounter Location Date Provider Diagnosis [address] [address] 11/23/2023 Romero Westfall Fibromyalgia M79.7 Assessments Encounter Date Diagnosis (ICD Code) Assessment Notes Treatment Notes Treatment Clinical Notes Section Notes 11/23/2023 Fibromyalgia (ICD-10 - M79.7) Plan Of Treatment Medication Medication Name Sig Start Date Stop Date Notes Meloxicam 15 MG 1 tablet Orally Once a day for 30 days Progress Notes * Ree DAVISDOB:1985 (38 yo F)Acc No.[id number]:11/23/2023 Patient:?DAVISAlexandreaRee :1985???Age:38 Y???Sex:Female Phone: Address:[address], [place], [address] * Refills? Refill Meloxicam Tablet, 15 MG, Orally, 30 Tablet, 1 tablet, Once a day, 30 days, Refills=1 * true * Date:? Generated for Printi ng/Farajatg/eTransmitting on:?04/25/2024 02:05 PM STRUCTURES MECHANIC
--- OUTSIDE RECORDS SUMMARY | 2024-04-25 14:05 | XMS_ITS ---
Author Organization [facility] Address [address] [place] [address] Care Team Providers Care Shoe Designer Name Role Phone Romero Westfall Primary Care Provider REASON FOR VISIT refill Social History Sex Assigned At : Social History Observation Description Sex Assigned At Female Encounters Encounter Location Date Provider Diagnosis [address] [address] 04/15/2024 Romero Westfall Plan Of Treatment No Information Progress Notes * Ree DUNAWAYDOB:1985 (38 yo F)Acc No.[id number]:04/15/2024 Patient:?Ree DUNAWAY :1985???Age:38 Y???Sex:Female Phone: Address:[address], [place], [address] * true * Date:? Generated for Cooperi abdullahi/Fransisco/eTransmitting on:?04/25/2024 02:05 PM DIVISION SUPERINTENDENT
--- OUTSIDE RECORDS SUMMARY | 2024-04-25 14:05 | XMS_ITS | CONTINUITY OF CARE DOCUMENT ---
Author Name remy alberto Address Unknown Organization [facility] Address [address] [place] [address] Phone [phone] Care Team Providers Care Wire Drawer Name Role Phone Austen Mcintosh MD Unavailable Austen Mcintosh MD Unavailable [phone] INSURANCE PROVIDERS Payer name Policy type / Coverage type Debra red republican ID [place] MEDICAID (2) Medicaid [id number]
--- OUTSIDE RECORDS SUMMARY | 2024-04-25 14:05 | XMS_ITS ---
Author Organization [facility] Address [address] [place] [address] Care Team Providers Care Crew Foreman Name Role Phone Romero Westfall Primary Care Provider REASON FOR VISIT 1 week f/u Social History Sex Assigned At : Social History Observation Description Sex Assigned At Female Encounters Encounter Location Date Provider Diagnosis [address] [address] 11/07/2023 Romero Westfall Plan Of Treatment No Information Progress Notes * Ree DUNAWAYDOB:1985 (38 yo F)Acc No.[id number]:11/07/2023 UNLOCKED PROGRESS NOTE Progress Notes Patient:?Ree DUNAWAY Provider:?Romero Westfall :1985???Age:38 Y???Sex:Female D ate:11/07/2023 Phone: Address:[address], [facility] Subjective: * Chief Complaints: * ???1. 1 week f/u. * Medical History:? Objective: * Vitals:? Assessment: Plan: * Treatment: * Recommended Wellness and Pre vention Guidelines: * ?Status ?Alert ?Last Done ?Next Due ?Action Taken ?NONCOMPLIANT ?Depression followup ?10/31/2023 ?11/06/2023 ?- * * Electronic signature of Filomena Westfall , [id number] on 04/25/2024 at 02:05 PM POLE TRUCK DRIVER Sign off status: Pending * Provider:?Romero Westfall Date:? Generated for Braydon fernando/Fransisco/eTransmitting on:?04/25/2024 02:05 PM POLE TRUCK DRIVER
== END 2024-04-22 19:12 | disposition home or self-care (01) ==
PROVIDERS: Emergency Provider Physician Assistant; PCP Internal Medicine
DX: S42.452A Displaced fracture of lateral condyle of left humerus, initial encounter for closed fracture (principal); J45.909 Unspecified asthma, uncomplicated; I10 Essential (primary) hypertension; F17.210 Nicotine dependence, cigarettes, uncomplicated; Z86.718 Personal history of other venous thrombosis and embolism; W00.0XXA Fall on same level due to ice and snow, initial encounter
CPT/HCPCS: 29105; 73070; 99284; A4565; A9270